=== PATIENT | male | born 1950 | race Caucasian/White ===

== ENCOUNTER 2019-08-05 13:44 | Inpatient (IN) | payer MEDICAID, MEDICARE ==
[~2019-08-05] VITALS: Ht 165 cm; Wt 64.0 kg
[~2019-08-05 13:44] MED LIST: ASPI-875 PO; ASPI-892 PO; ATOR20TA66 PO; LISI10TA2 PO; LSNP10T PO; NCT14P TD
[2019-08-05] MEDS ORDERED: NS IV 1000 ML 1,000 ML IV SCH ×2 (14:09→15:23)
[2019-08-05 14:35] LABS: BASOPHILS % (AUTO) 0 % (0-10); EOSINOPHILS % (AUTO) 0 % (0-10); HEMATOCRIT 41 % (40-54); HEMOGLOBIN 13.9 G/DL (13.3-17.7); LYMPHOCYTES # (AUTO) 1.6 X 10^3 (1.0-4.0); LYMPHOCYTES % (AUTO) 11 % (12-44); MEAN CORPUSCULAR HEMOGLOBIN 29 PG (25-34); MEAN CORPUSCULAR HGB CONC 34 G/DL (32-36); MEAN CORPUSCULAR VOLUME 85 FL (80-99); MEAN PLATELET VOLUME 11.3 FL (7.4-10.4); MONOCYTES # (AUTO) 0.7 X 10^3 (0.0-1.0); MONOCYTES % (AUTO) 5 % (0-12); NEUTROPHILS # (AUTO) 11.5 X 10^3 (1.8-7.8); NEUTROPHILS % (AUTO) 83 % (42-75); PLATELET COUNT 364 10^3/uL (130-400); RED CELL DISTRIBUTION WIDTH 16.1 % (10.0-14.5); WHITE BLOOD COUNT 13.8 10^3/uL (4.3-11.0)
[2019-08-05 14:46] LABS: BILIRUBIN,URINE NEGATIVE (NEGATIVE); CLARITY,URINE CLEAR; COLOR,URINE YELLOW; GLUCOSE, URINE (UA) NEGATIVE (NEGATIVE); KETONES,URINE NEGATIVE (NEGATIVE); LEUKOCYTE ESTERASE ,URINE NEGATIVE (NEGATIVE); NITRITE,URINE NEGATIVE (NEGATIVE); PH,URINE 5.5 (5-9); PROTEIN,URINE NEGATIVE (NEGATIVE)
[2019-08-05 14:47] LABS: INR 1.1 (0.8-1.4); PROTHROMBIN TIME PATIENT 15.1 SEC (12.2-14.7)
[2019-08-05 14:55] LABS: BACTERIA,URINE TRACE /HPF; SQUAMOUS EPITHELIAL CELL,UR RARE /HPF
[2019-08-05 14:56] LABS: ALANINE AMINOTRANSFERASE 87 U/L (0-55); ALKALINE PHOSPHATASE 80 U/L (40-136); AMYLASE 54 U/L (25-125); BILIRUBIN,TOTAL 0.4 MG/DL (0.1-1.0); BUN/CREATININE RATIO 18; CALCIUM 8.8 MG/DL (8.5-10.1); CARBON DIOXIDE 27 MMOL/L (21-32); CHLORIDE 100 MMOL/L (98-107); CREATININE SERUM 1.26 MG/DL (0.60-1.30); GFR ESTIMATED 57; GLUCOSE 112 MG/DL (70-105); LIPASE 29 U/L (8-78); POTASSIUM 4.1 MMOL/L (3.6-5.0); SODIUM 136 MMOL/L (135-145); TOTAL PROTEIN 7.9 GM/DL (6.4-8.2)
--- NOTE | 2019-08-05 14:57 | Diagnostic Imaging Report ---
Indication: Lower respiratory infection PA and lateral chest There is infiltrate present in the left lung base and possibly at the right lung base. There is no effusion or pneumothorax. Heart size and pulmonary vascularity are normal. IMPRESSION: Probable bilateral basilar infiltrate suspicious for pneumonia. Dictated by: Dictated on workstation # [id number]
[2019-08-05 15:06] LABS: AMPHETAMINE SCREEN, URINE NEGATIVE (NEGATIVE); BARBITURATE SCREEN URINE NEGATIVE (NEGATIVE); BENZODIAZEPINES SCREEN URINE NEGATIVE (NEGATIVE); CANNABINOID SCREEN, URINE POSITIVE (NEGATIVE); COCAINE SCREEN URINE NEGATIVE (NEGATIVE); METHADONE STAT NEGATIVE (NEGATIVE); METHAMPHETAMINE SCREEN URINE S NEGATIVE (NEGATIVE); OPIATE SCREEN URINE NEGATIVE (NEGATIVE); OXYCODONE STAT NEGATIVE (NEGATIVE); PROPOXYPHENE STAT NEGATIVE (NEGATIVE); TRICYCLIC ANTIDEPRESSANTS SCRE NEGATIVE (NEGATIVE)
[2019-08-05 15:15] LABS: TSH (THYROID ANALYZER) 1.43 UIU/ML (0.35-4.94)
[2019-08-05] MEDS ORDERED: HOLD METFORMIN - RECEIVED CONTRAST 20 ML VIAL IV SCH (15:45)
[2019-08-05] MEDS ORDERED: IOHEXOL 350 MG/ML 100 ML (OMNIPAQUE 350) VIAL IV ONE (15:45)
[2019-08-05] MEDS ORDERED: NS 100 ML (IVPB) BAG IV ONE (15:45)
--- NOTE | 2019-08-05 15:59 | ED General ---
General Chief Complaint: General Problems/Pain Stated Complaint: NO APPETITE Nursing Triage Note: PT STATES HE ATE AT [employer] ON JUL 17 AND HAS NOT FELT WELL SINCE AND HAS NO APPITITE. WAS SEEN AT [facility] LAST WEEK AND DX WITH A VIRUS. Nursing Sepsis Screen: No Definite Risk History of Present Illness Date Seen by Provider: Aug 05, 2019 Time Seen by Provider: 13:55 Initial Comments 69-year-old male reports loss of appetite over the last 3 weeks. He reports on July 17, 2019 she ate chili at [employer]. He had 2 days of vomiting followed by 2 days of diarrhea. Since then, no further diarrhea or vomiting, but loss of appetite, generalized fatigue and weight loss. No abdominal pain, chest pain, SOA or other complaints. No previous abdominal surgeries. Timing/Duration: Getting Worse, Other (3 weeks) Associated Systoms: No Chest Pain, No Cough, No Diaphoresis, No Fever/Chills, No Headaches; Loss of Appetite, Malaise; No Nausea/Vomiting, No Rash, No Seizure, No Shortness of Air, No Syncope; Weakness; No Other Allergies and Home Medications Allergies Coded Allergies: No Known Drug Allergies (Unverified , 07/23/13) Home Medications Aspirin 81 Mg Tablet.dr, 81 MG PO DAILY, (Reported) Atorvastatin Calcium 20 Mg Tablet, 20 MG PO HS, (Reported) Lisinopril 10 Mg Tablet, 10 MG PO BID, (Reported) Patient Home Medication List Home Medication List Reviewed: Yes Review of Systems Review of Systems Constitutional: see HPI, malaise, weakness, weight loss Respiratory: no symptoms reported, see HPI; No short of breath Cardiovascular: no symptoms reported, see HPI; No chest pain Gastrointestinal: no symptoms reported, see HPI Genitourinary: no symptoms reported, see HPI All Other Systems Reviewed Negative Unless Noted: Yes Past Pfgklth-Oxvlgx-Xbuxcw Hx Past Med/Social Hx: Reviewed Nursing Past Med/Soc Hx Patient Social History Alcohol Use: Past History Recreational Drug Use: No Smoking Status: Current Everyday Smoker Recent Foreign Travel: No Contact w/Someone Who Travel: No Recent Infectious Disease Expo: No Immunizations Up To Date Tetanus Booster (TDap): Unknown Date of Influenza Vaccine: Jul 24, 2013 Past Medical History Surgeries: Yes Orthopedic Respiratory: Yes COPD Cardiac: No Neurological: Yes Stroke Reproductive Disorders: No Sexually Transmitted Disease: No HIV/AIDS: No Genitourinary: No Gastrointestinal: No Musculoskeletal: No Endocrine: No HEENT: No Cancer: No Psychosocial: No Integumentary: No Eczema Blood Disorders: No Adverse Reaction/Blood Tranf: No Family Medical History Stroke 03 MOTHER Physical Exam Vital Signs Vital Signs - First Documented 08/05/19 08/05/19 13:52 14:05 Temp 37.0 Pulse 138 Resp 16 B/P (MAP) 130/85 (100) Pulse Ox 89 O2 Delivery Room Air O2 Flow Rate 2.00 Capillary Refill : Less Than 3 Seconds Height, Weight, BMI Height: 5'10.00" Weight: 155lbs. 1.0oz. [id number]; 23.00 BMI Method:Stated General Appearance: WD/WN, Mild Distress Eyes: Bilateral Eye Normal Inspection, Bilateral Eye PERRL, Bilateral Eye EOMI HEENT: PERRL/EOMI, TMs Normal, Pharynx Normal; No Moist Mucous Membranes; Other (oral mucosa pink and dry) Neck: Full Range of Motion, Normal Inspection, Non Tender, Supple Respiratory: Chest Non Tender, Lungs Clear, Normal Breath Sounds Cardiovascular: Regular Rate, Rhythm, No Edema, No Murmur, Normal Peripheral Pulses Gastrointestinal: Normal Bowel Sounds, Non Tender, Soft; No Distended, No Guarding, No Rebound, No Tenderness Neurologic/Psychiatric: Alert, Oriented x3, No Motor/Sensory Deficits, Normal Mood/Affect Focused Exam Lactate Level 08/05/19 15:14: Lactic Acid Level 1.27 Lactic Acid Level Laboratory Tests Test 08/05/19 15:14 Lactic Acid Level 1.27 MMOL/L (0.50-2.00) Progress/Results/Core Measures Suspected Sepsis Recent Fever Within 48 Hours: No Infection Criteria Present: Suspected New Infection New/Unexplained Altered Menta: No Sepsis Screen: No Definite Risk SIRS Temperature: Pulse: 138 Respiratory Rate: 16 Laboratory Tests 08/05/19 14:05: White Blood Count 13.8H Blood Pressure 130 /85 Mean: 100 08/05/19 15:14: Lactic Acid Level 1.27 Laboratory Tests 08/05/19 14:05: Creatinine 1.26, INR Comment 1.1, Platelet Count 364, Total Bilirubin 0.4 Results/Orders Lab Results Laboratory Tests Test 08/05/19 14:05 08/05/19 14:29 08/05/19 15:14 Range/Units White Blood Count 13.8 H 4.3-11.0 10^3/uL Red Blood Count 4.85 4.35-5.85 10^6/uL Hemoglobin 13.9 13.3-17.7 G/DL Hematocrit 41 40-54 % Mean Corpuscular Volume 85 80-99 FL Mean Corpuscular Hemoglobin 29 25-34 PG Mean Corpuscular Hemoglobin Concent 34 32-36 G/DL Red Cell Distribution Width 16.1 H 10.0-14.5 % Platelet Count 364 130-400 10^3/uL Mean Platelet Volume 11.3 H 7.4-10.4 FL Neutrophils (%) (Auto) 83 H 42-75 % Lymphocytes (%) (Auto) 11 L 12-44 % Monocytes (%) (Auto) 5 0-12 % Eosinophils (%) (Auto) 0 0-10 % Basophils (%) (Auto) 0 0-10 % Neutrophils # (Auto) 11.5 H 1.8-7.8 X 10^3 Lymphocytes # (Auto) 1.6 1.0-4.0 X 10^3 Monocytes # (Auto) 0.7 0.0-1.0 X 10^3 Eosinophils # (Auto) 0.0 0.0-0.3 10^3/uL Basophils # (Auto) 0.0 0.0-0.1 10^3/uL Prothrombin Time 15.1 H 12.2-14.7 SEC INR Comment 1.1 0.8-1.4 Activated Partial Thromboplast Time 30 24-35 SEC Sodium Level 136 135-145 MMOL/L Potassium Level 4.1 3.6-5.0 MMOL/L Chloride Level 100 98-107 MMOL/L Carbon Dioxide Level 27 21-32 MMOL/L Anion Gap 9 5-14 MMOL/L Blood Urea Nitrogen 23 H 7-18 MG/DL Creatinine 1.26 0.60-1.30 MG/DL Estimat Glomerular Filtration Rate 57 BUN/Creatinine Ratio 18 Glucose Level 112 H 70-105 MG/DL Calcium Level 8.8 8.5-10.1 MG/DL Corrected Calcium 9.6 8.5-10.1 MG/DL Total Bilirubin 0.4 0.1-1.0 MG/DL Aspartate Amino Transf (AST/SGOT) 157 H 5-34 U/L Alanine Aminotransferase (ALT/SGPT) 87 H 0-55 U/L Alkaline Phosphatase 80 40-136 U/L Troponin I < 0.028 <0.028 NG/ML B-Type Natriuretic Peptide 24.9 <100.0 PG/ML Total Protein 7.9 6.4-8.2 GM/DL Albumin 3.0 L 3.2-4.5 GM/DL Amylase Level 54 25-125 U/L Lipase 29 8-78 U/L TSH [place] Testing 1.43 0.35-4.94 UIU/ML Serum Alcohol < 10 <10 MG/DL Urine Color YELLOW Urine Clarity CLEAR Urine pH 5.5 5-9 Urine Specific Mccamey 1.025 H 1.016-1.022 Urine Protein NEGATIVE NEGATIVE Urine Glucose (UA) NEGATIVE NEGATIVE Urine Ketones NEGATIVE NEGATIVE Urine Nitrite NEGATIVE NEGATIVE Urine Bilirubin NEGATIVE NEGATIVE Urine Urobilinogen 0.2 < = 1.0 MG/DL Urine Leukocyte Esterase NEGATIVE NEGATIVE Urine RBC (Auto) NEGATIVE NEGATIVE Urine RBC NONE /HPF Urine WBC NONE /HPF Urine Squamous Epithelial Cells RARE /HPF Urine Crystals NONE /LPF Urine Bacteria TRACE /HPF Urine Casts NONE /LPF Urine Mucus NEGATIVE /LPF Urine Culture Indicated NO Urine Opiates Screen NEGATIVE NEGATIVE Urine Oxycodone Screen NEGATIVE NEGATIVE Urine Methadone Screen NEGATIVE NEGATIVE Urine Propoxyphene Screen NEGATIVE NEGATIVE Urine Barbiturates Screen NEGATIVE NEGATIVE Ur Tricyclic Antidepressants Screen NEGATIVE NEGATIVE Urine Phencyclidine Screen NEGATIVE NEGATIVE Urine Amphetamines Screen NEGATIVE NEGATIVE Urine Methamphetamines Screen NEGATIVE NEGATIVE Urine Benzodiazepines Screen NEGATIVE NEGATIVE Urine Cocaine Screen NEGATIVE NEGATIVE Urine Cannabinoids Screen POSITIVE H NEGATIVE Lactic Acid Level 1.27 0.50-2.00 MMOL/L Micro Results Microbiology 08/05/19 Influenza Types A,B Antigen (GE) - Final, Complete My Orders Orders - ELIAS BERNARD Cbc With Automated Diff (08/05/19 13:58) Comprehensive Metabolic Panel (08/05/19 13:58) Ua Culture If Indicated (08/05/19 13:58) Blood Culture (08/05/19 14:08) Influenza A And B Antigens (08/05/19 14:08) Lactic Acid Analyzer (08/05/19 14:08) Alcohol (08/05/19 14:08) Amylase (08/05/19 14:08) BNP (08/05/19 14:08) Drug Screen Stat (Urine) (08/05/19 14:08) Lipase (08/05/19 14:08) Protime With Inr (08/05/19 14:08) Partial Thromboplastin Time (08/05/19 14:08) Thyroid Analyzer (08/05/19 14:08) Troponin I (08/05/19 14:08) Ed Iv/Invasive Line Start (08/05/19 14:09) Ns Iv 1000 Ml (Sodium Chloride 0.9%) (08/05/19 14:09) Ekg Tracing (08/05/19 14:09) Continuous Ekg Monitoring (08/05/19 14:09) Chest Pa/Lat (2 View) (08/05/19 14:37) Ed Iv/Invasive Line Start (08/05/19 15:23) Ns Iv 1000 Ml (Sodium Chloride 0.9%) (08/05/19 15:23) Ct Abd/Pelv W (Appendicitis) (08/05/19 15:23) Iohexol Injection (Omnipaque 350 Mg/Ml 1 (08/05/19 15:45) Received Contrast (Hold Metformin- Contr (08/05/19 15:45) Ns (Ivpb) (Sodium Chloride 0.9% Ivpb Bag (08/05/19 15:45) Azithromycin Injection (Zithromax Inject (08/05/19 16:45) Ceftriaxone For Iv Use (Rocephin For I (08/05/19 16:45) Medications Given in ED Current Medications Medications Dose Ordered Sig/Deon Route Start Time Stop Time Status Last Admin Dose Admin Iohexol 100 ml ONCE ONCE IV 08/05/19 15:45 08/05/19 15:47 DC 08/05/19 16:00 100 ML Sodium Chloride 100 ml ONCE ONCE IV 08/05/19 15:45 08/05/19 15:48 DC 08/05/19 16:00 100 ML Vital Signs/I&O 08/05/19 08/05/19 13:52 14:05 Temp 37.0 Pulse 138 Resp 16 B/P (MAP) 130/85 (100) Pulse Ox 89 92 O2 Delivery Room Air Nasal Cannula O2 Flow Rate 2.00 Capillary Refill : Less Than 3 Seconds Blood Pressure Mean: 100 Progress Note : Time: 13:55 Progress Note Patient seen and evaluated, initial SaO2 88-90% on room air, O2 per nasal cannula increased to 91%. 1445 no new complaints. Labs reviewed. 1530 SaO2 98%, decreased O2 to 1 L. Heart rate 80-90. Able to maintain SaO2 > 96%. will obtain CT abdomen and pelvis. Reports being thirsty, will keep NPO until after CT. [address] and labs with Dr. Coronado, agreed with plan to admit, Dr. Robledo agreeable to consult. [address] George, will consult tomorrow. Taking ice chips, no n/v or complaints. SaO2 remaining > 92% with 1 L per NC. 1745 Patient talking to spouse, no SOA. No complaints, awaiting transfer to floor. ECG Initial ECG Impression Date: Aug 05, 2019 Initial ECG Impression Time: 14:15 Initial ECG Rhythm: S.Tach Initial ECG Intervals CO 144, QRSD 70, QT 296, QTC 446. Troy P -30, QRS, T 50. Initial ECG Impression: Normal Initial ECG Comparisson: No Previous ECG Available Diagnostic Imaging Diagonstic Imaging: CT Comments [facility], [place] NAME: DARA HAGER [employer] REC#: [id number] PT STATUS: REG ER : 1950 PHYSICIAN: ELIAS BERNARD ADMIT DATE: 08/05/19/ER Draft Date of Exam:08/05/19 CT ABD/PELV W (APPENDICITIS) CT ABD/PELV W (APPENDICITIS) TECHNIQUE: Multiple contiguous axial images were obtained through the abdomen and pelvis after administration of intravenous contrast. All CT scans use one or more of the following dose optimizing techniques: automated exposure control, MA and/or KvP adjustment based on a patient size and exam type, or iterative reconstruction. INDICATION: No appetite for one month. Pneumonia seen on prior radiograph. COMPARISON: Two-view chest of 08/05/2019. FINDINGS: Lower chest: Multifocal consolidations and centrilobular micronodules within the lung bases. No cavitary nodules. No pleural effusion. Peritoneum: No free intraperitoneal air or fluid. Liver and biliary system: The liver is normal. The gallbladder is normal. No biliary duct dilation. Spleen and Pancreas: Spleen is normal. The pancreas enhances normally without mass lesion or peripancreatic inflammatory changes. Adrenals: Normal. tract: The kidneys enhance normally without suspicious mass or obstruction. Urinary bladder is partially distended. Mild trabeculated wall thickening. Prostate is mildly enlarged. GI tract: Moderate size hiatal hernia is present. Mild circumferential wall thickening of the distal esophagus is noted. No bowel obstruction. No pericolonic inflammatory changes. No features of appendicitis. Vasculature and Lymph nodes: Normal caliber aorta has moderate atherosclerotic plaquing present. No abdominal or pelvic lymphadenopathy. Musculoskeletal: There is motion artifact at the level of the proximal femurs resulting in artificial appearance of fracture. No concerning focal osseous lesion allowing for the motion. IMPRESSION: 1. Bilateral pulmonary consolidations and centrilobular nodules are most compatible with multifocal pneumonia and/or aspiration. 2. Moderate size hiatal hernia with circumferential wall thickening of the distal esophagus. This raises the possibility of esophagitis, but underlying neoplasm could also give this appearance. Consider endoscopy for further assessment as patient condition permits. 3. No bowel obstruction, colitis or diverticulitis. 4. Mild trabeculated wall thickening of the urinary bladder may be due to combination of incomplete distention and partial bladder outlet obstruction from prostatomegaly. If patient has hematuria, urology consultation would be advised to assess for bladder neoplasm. Dictated on workstation # [id number] Dict: 08/05/19 1607 Trans: 08/05/19 1617 [id number] Interpreted by: SOCORRO NUNO MD Electronically signed by: Reviewed: Reviewed by Me Departure Impression Primary Impression: Pneumonia Qualified Codes: J18.1 - Lobar pneumonia, unspecified organism Additional Impression: Decreased appetite Disposition: ADMITTED INPATIENT Condition: Stable Admissions Decision to Admit Reason: Admit from ER (General) Decision to Admit/Date: Aug 05, 2019 Time/Decision to Admit Time: 16:20 Departure-Patient Inst. Referrals: TESSIE GARRETT MD (PCP) Primary Care Physician [facility] (Family) Primary Care Physician Copy Copies To 1: TESSIE GARRETT MD, AMY ARNP Aug 05, 2019 15:59
--- NOTE | 2019-08-05 16:17 | Diagnostic Imaging Report ---
CT ABD/PELV W (APPENDICITIS) TECHNIQUE: Multiple contiguous axial images were obtained through the abdomen and pelvis after administration of intravenous contrast. All CT scans use one or more of the following dose optimizing techniques: automated exposure control, MA and/or KvP adjustment based on a patient size and exam type, or iterative reconstruction. INDICATION: No appetite for one month. Pneumonia seen on prior radiograph. COMPARISON: Two-view chest of 08/05/2019. FINDINGS: Lower chest: Multifocal consolidations and centrilobular micronodules within the lung bases. No cavitary nodules. No pleural effusion. Peritoneum: No free intraperitoneal air or fluid. Liver and biliary system: The liver is normal. The gallbladder is normal. No biliary duct dilation. Spleen and Pancreas: Spleen is normal. The pancreas enhances normally without mass lesion or peripancreatic inflammatory changes. Adrenals: Normal. tract: The kidneys enhance normally without suspicious mass or obstruction. Urinary bladder is partially distended. Mild trabeculated wall thickening. Prostate is mildly enlarged. GI tract: Moderate size hiatal hernia is present. Mild circumferential wall thickening of the distal esophagus is noted. No bowel obstruction. No pericolonic inflammatory changes. No features of appendicitis. Vasculature and Lymph nodes: Normal caliber aorta has moderate atherosclerotic plaquing present. No abdominal or pelvic lymphadenopathy. Musculoskeletal: There is motion artifact at the level of the proximal femurs resulting in artificial appearance of fracture. No concerning focal osseous lesion allowing for the motion. IMPRESSION: 1. Bilateral pulmonary consolidations and centrilobular nodules are most compatible with multifocal pneumonia and/or aspiration. 2. Moderate size hiatal hernia with circumferential wall thickening of the distal esophagus. This raises the possibility of esophagitis, but underlying neoplasm could also give this appearance. Consider endoscopy for further assessment as patient condition permits. 3. No bowel obstruction, colitis or diverticulitis. 4. Mild trabeculated wall thickening of the urinary bladder may be due to combination of incomplete distention and partial bladder outlet obstruction from prostatomegaly. If patient has hematuria, urology consultation would be advised to assess for bladder neoplasm. Dictated by: Dictated on workstation # [id number]
[2019-08-05] MEDS ORDERED: cefTRIAXone FOR IV USE 1,000 MG in WATER (STERILE) FOR INJECTION 10 ML IV ONE (16:45)
[2019-08-05] MEDS ORDERED: AZITHROMYCIN INJECTION 500 MG in NS (IVPB) 250 ML IV ONE (16:45)
--- NOTE | 2019-08-05 18:10 | NUR ---
ALL VITALS MISTAKENLY DELETED UPON ADMIT BY [facility]
--- NOTE | 2019-08-05 18:24 | NUR ---
f pt name] admitted to room 427-1, with an admitting diagnosis of pneumonia, on 08/05/19 from [place] via wheelchair, accompanied by .DARA HAGER introduced to surroundings, call light, bed controls, phone, TV, temperature control, lights, meal times, smoking policy, visitor policy, side rail policy, bathrooms and showers. Patient Rights given to patient in the handbook.DARA HAGER verbalizes understanding that [facility] is not responsible for the loss or damage to any personal effects or valuables that are kept in the patients posession during their hospitalization. The following Patient Care Plans were discussed with the pt: Discharge Planning. DARA HAGER verbalizes understanding of Interdisciplinary Patient Education. Patient and/or family were informed about the Rapid Response Team and its purpose.
[2019-08-05 18:25] VITALS: BP 146/94
[2019-08-05] MEDS ORDERED: ACETAMINOPHEN 325 MG TABLET PO PRN (18:30)
[2019-08-05] MEDS ORDERED: CATHETER FLUSH 10 ML SYR IV PRN (18:30)
--- NOTE | 2019-08-05 18:34 | CONSULTATION REPORT ---
DATE OF SERVICE: 08/05/2019 ATTENDING EMS DRIVER: Davian Shannon MD HISTORY OF PRESENT ILLNESS: The patient is a 69-year-old male who presented to the Emergency Department with loss of appetite as well as dysphagia. He reports that approximately 2 weeks ago, he was eating chili and then developed two days of vomiting as well as diarrhea. Since that time, he states that he has had some loss of appetite and some mild weight loss. A CT scan was performed, which did show bilateral basilar pneumonia; however, there was a thickened area of the distal portion of the esophagus, which may indicate a hiatal hernia versus esophagitis He does not report any major issues with gastroesophageal reflux disease or peptic ulcer disease. He also does not report any hematemesis, no coffee ground emesis. He does not report any dysphagia as well as regurgitation. Again, more of his symptoms are related to decreased appetite as well as mild nausea. PAST MEDICAL HISTORY: COPD, eczema, previous history of stroke, hypertension, and hypercholesterolemia. PAST SURGICAL HISTORY: Orthopedic procedure. ALLERGIES: No known drug allergies. MEDICATIONS: Aspirin 81 mg daily, atorvastatin 20 mg daily and Lisinopril 10 mg b.i.d. SOCIAL HISTORY: Positive smoke 40 pack years. Negative alcohol. FAMILY HISTORY: Mother stroke. VITAL SIGNS: Temperature 37.0, blood pressure 130/85, pulse 138, respirations 16, pulse ox 89% on room air. REVIEW OF SYSTEMS: A well-nourished male, currently in no acute distress. He is not experiencing any shortness of breath or difficulty breathing; however, does have mild nonproductive cough. No hemoptysis. He reports an episode of nausea and vomiting for approximately two days after eating chili and after that time, he states that he has not had much of an appetite. He does not report any classic symptoms of gastroesophageal reflux disease. He also does not report any hematemesis, no coffee ground emesis. He does not report any diarrhea nor constipation as well as no red blood per rectum nor any dark tarry stools. No fever, chills; however, has had some weight loss in the past few months. PHYSICAL EXAMINATION: CHEST: Distant breath sounds bilaterally with scattered expiratory wheezes bilaterally. HEART: Regular, no murmurs. EXTREMITIES: No lower extremity edema, negative Homans sign. HEENT: No scleral icterus. NECK: No cervical lymphadenopathy. ABDOMEN: Soft, nondistended. There is mild discomfort in the epigastric region upon deep palpation. No peritoneal signs. SKIN: Warm, dry. LABORATORY DATA: WBC 13.8, hemoglobin 13.9, hematocrit 41, platelets 364. BUN 23, creatinine 1.26. Total bilirubin 0.4, AST 157, ALT 87. ASSESSMENT AND PLAN: A 69-year-old male with bibasilar pneumonia, anorexia, mild weight loss and CT scan findings of hiatal hernia versus distal esophagitis We will also investigate when his last colonoscopy was and if it has been greater than 10 years ago then we will proceed with an EGD and colonoscopy as well as biopsies as appropriate. There is also the possibility of a gallbladder etiology causing his anorexia and we will also proceed with a gallbladder ultrasound and possible HIDA scan to look for a biliary dyskinesia. Job ID: [id number] DocumentID: [id number] Dictated Date: 08/05/2019 17:51:44 Cosmetology Professor Date: 08/05/2019 18:33:26 Dictated By: MAYKEL KING MD
[2019-08-05] MEDS: NS IV 1000 ML 1,000 ML IV SCH (18:42)
[2019-08-05 19:08] VITALS: BP 146/94
[2019-08-05 23:15] VITALS: BP 130/85
[2019-08-05] MEDS ORDERED: RT-ALBUTEROL SULF 2.5 MG/3 ML PRE-MIX VIAL INH PRN (23:30)
[2019-08-06] VITALS (8 sets, daily range): BP systolic 129–153; BP diastolic 76–88
[2019-08-06] MEDS: NS IV 1000 ML 1,000 ML IV SCH ×4 (00:16→19:41)
[2019-08-06 06:05] LABS: BASOPHILS % (AUTO) 0 % (0-10); EOSINOPHILS % (AUTO) 0 % (0-10); HEMATOCRIT 33 % (40-54); LYMPHOCYTES # (AUTO) 0.9 X 10^3 (1.0-4.0); LYMPHOCYTES % (AUTO) 11 % (12-44); MEAN CORPUSCULAR HEMOGLOBIN 29 PG (25-34); MEAN CORPUSCULAR HGB CONC 33 G/DL (32-36); MEAN CORPUSCULAR VOLUME 86 FL (80-99); MEAN PLATELET VOLUME 10.6 FL (7.4-10.4); MONOCYTES # (AUTO) 0.5 X 10^3 (0.0-1.0); MONOCYTES % (AUTO) 6 % (0-12); NEUTROPHILS # (AUTO) 7.1 X 10^3 (1.8-7.8); NEUTROPHILS % (AUTO) 83 % (42-75); PLATELET COUNT 285 10^3/uL (130-400); RED CELL DISTRIBUTION WIDTH 15.6 % (10.0-14.5); WHITE BLOOD COUNT 8.6 10^3/uL (4.3-11.0)
[2019-08-06 06:31] LABS: ALANINE AMINOTRANSFERASE 62 U/L (0-55); ALBUMIN 2.2 GM/DL (3.2-4.5); ALKALINE PHOSPHATASE 59 U/L (40-136); BILIRUBIN,TOTAL 0.4 MG/DL (0.1-1.0); BUN/CREATININE RATIO 17; CALCIUM 7.5 MG/DL (8.5-10.1); CARBON DIOXIDE 23 MMOL/L (21-32); CHLORIDE 105 MMOL/L (98-107); CREATININE SERUM 0.86 MG/DL (0.60-1.30); GFR ESTIMATED > 60; GLUCOSE 88 MG/DL (70-105); POTASSIUM 3.9 MMOL/L (3.6-5.0); SODIUM 135 MMOL/L (135-145); TOTAL PROTEIN 5.8 GM/DL (6.4-8.2)
--- NOTE | 2019-08-06 06:35 | NUR ---
DR. MALLORY NOTIFIED OF CONSULT.
--- NOTE | 2019-08-06 06:52 | Pulmonary Consultation ---
History of Present Illness History of Present Illness Date Seen by Provider: Aug 06, 2019 Time Seen by Provider: 06:47 Date of Admission History of Present Illness 69yo presented to ED after worsening dysphagia, weakness and wt loss. No abdominal pain, SOB, or chest pain. CT of chest shows bilateral infiltrates and questionable esophageal thickening. Allergies and Home Medications Allergies Coded Allergies: No Known Drug Allergies (Unverified , 07/23/13) Home Medications Aspirin 81 Mg Tablet.dr, 81 MG PO DAILY, (Reported) Atorvastatin Calcium 20 Mg Tablet, 20 MG PO HS, (Reported) Lisinopril 10 Mg Tablet, 10 MG PO BID, (Reported) Past Wfchbnq-Obedgk-Dgsukt Hx Past Med/Social Hx: Reviewed Nursing Past Med/Soc Hx Patient Social History Alcohol Use: Past History Recreational Drug Use: No Smoking Status: Current Everyday Smoker Recent Foreign Travel: No Contact w/Someone Who Travel: No Recent Infectious Disease Expo: No Immunizations Up To Date Tetanus Booster (TDap): Unknown Date of Pneumonia Vaccine: Aug 14, 2017 Date of Influenza Vaccine: Jul 24, 2013 Past Medical History Surgeries: Yes Orthopedic Respiratory: Yes COPD Cardiac: No Neurological: Yes Stroke Reproductive Disorders: No Sexually Transmitted Disease: No HIV/AIDS: No Genitourinary: No Gastrointestinal: No Musculoskeletal: No Endocrine: No HEENT: No Cancer: No Psychosocial: No Integumentary: No Eczema Blood Disorders: No Adverse Reaction/Blood Tranf: No Family Medical History Stroke 03 MOTHER Sepsis Event Evaluation Height, Weight, BMI Height: 5'10.00" Weight: 155lbs. 1.0oz. 70.727307yx; 23.50 BMI Method:Stated Exam Exam Vital Signs Date Time Temp Pulse Resp B/P (MAP) Pulse Ox O2 Delivery O2 Flow Rate FiO2 08/06/19 04:00 36.5 76 20 153/88 (109) 95 Nasal Cannula 2.50 08/06/19 00:00 36.2 85 21 132/79 (96) 92 Nasal Cannula 2.50 08/05/19 23:15 37.0 138 89 08/05/19 20:00 Nasal Cannula 2.00 08/05/19 19:08 37.4 93 26 146/94 (111) 92 Nasal Cannula 2.50 2.50 08/05/19 18:40 92 Nasal Cannula 2.00 08/05/19 18:25 37.4 93 26 146/94 92 Nasal Cannula 2.50 08/05/19 18:10 37.0 93 16 135/79 (100) 96 Nasal Cannula 2.00 08/05/19 15:35 37.0 138 16 130/85 92 Nasal Cannula 2.00 08/05/19 14:05 92 Nasal Cannula 2.00 08/05/19 13:52 37.0 138 16 130/85 (100) 89 Room Air I & O 08/06/19 07:00 Intake Total 4560 ml Output Total 1050 ml Balance 3510 ml Height & Weight Height: 5'10.00" Weight: 155lbs. 1.0oz. 70.515614nk; 23.50 BMI Method:Stated General Appearance: WD/WN, Mild Distress HEENT: PERRL/EOMI, TMs Normal, Pharynx Normal; No Moist Mucous Membranes; Other (oral mucosa pink and dry) Neck: Full Range of Motion, Normal Inspection, Non Tender, Supple Respiratory: Chest Non Tender, Lungs Clear, Normal Breath Sounds Cardiovascular: Regular Rate, Rhythm, No Edema, No Murmur, Normal Peripheral Pulses Capillary Refill: Less Than 3 Seconds Neurologic/Psychiatric: Alert, Oriented x3, No Motor/Sensory Deficits, Normal Mood/Affect Results Lab Laboratory Tests 08/05/19 14:05 08/06/19 05:56 Assessment/Plan Assessment/Plan bilateral pulmonary infiltrates per abdominal CT -Check dedicated chest CT -Check PCT, urine strep, legionella ag -Influenza is negative -Continue rocephin and azithromycin for now dysphagia -Consult speech therapy -Surgery is consulted for EGD Hesham use -Education LUIS MALLORY DO Aug 06, 2019 06:52
[2019-08-06] MEDS: PANTOPRAZOLE 40 MG (PROTONIX) VIAL IV SCH (08:22)
--- NOTE | 2019-08-06 08:37 | Diagnostic Imaging Report ---
PROCEDURE: US Gallbladder. TECHNIQUE: Multiple real-time grayscale images were obtained over the right upper quadrant in various projections. INDICATION: Anorexia, nausea and vomiting. COMPARISON: CT abdomen and pelvis performed prior day. FINDINGS: The liver is normal in size and echogenicity. There is no focal hepatic mass. The main portal vein is patent with antegrade flow. The gallbladder is distended without gallstones, wall thickening, or pericholecystic fluid. The common bile duct measures up to 0.3 cm in diameter. No intrahepatic biliary dilation. The visualized portions of the pancreas are normal. Portions of the head and tail are obscured by overlying bowel gas. The right kidney is normal in size. No hydronephrosis, shadowing calculi, or suspicious mass lesion. Simple parapelvic cyst measures 1.3 x 1.3 cm. IMPRESSION: 1. Normal gallbladder. 2. No biliary obstruction. Dictated by: Dictated on workstation # [id number]
--- NOTE | 2019-08-06 10:32 | History & Physical ---
HPI History of Present Illness: 69 yo male came to hospital due to report of not being able to eat for about a month. He states that he was really sick with vomiting and diarrhea for a few days about a month ago. It sounds like he got some nausea medicine from outpatient and got a little better, but then continued to have no appetite and didn't feel like eating. He does believe he has been losing weight. He denies current diarrhea. He denies difficulty swallowing. He denies fever. He has "a bit" of coughing and admits some shortness of breath. He does not use supplemental oxygen at home. Source: patient Date seen by provider: Aug 06, 2019 Time Seen by Provider: 10:30 Attending Physician Bernice Coronado MD PCP Davian Shannon MD Consult Date of Admission Aug 05, 2019 at 16:30 Home Medications Home Medications Reviewed patient Home Medication Reconciliation performed by pharmacy medication reconciliations imaging technician and/or nursing. Patients Allergies have been reviewed. Allergies Coded Allergies: No Known Drug Allergies (Unverified , 07/23/13) [id number] Patient Social History Alcohol Use: Past History Recreational Drug Use: No Smoking Status: Current Everyday Smoker Recent Foreign Travel: No Contact w/other who traveled: No Recent Infectious Disease Expo: No Immunizations Up To Date Tetanus Booster (TDap): Unknown Date of Pneumonia Vaccine: Aug 14, 2017 Date of Influenza Vaccine: Jul 24, 2013 Past Medical History PMHx: HTN HLD CVA SurgHx: Unknown Family Medical History Family History: Stroke 03 MOTHER Review of Systems ([facility]) Constitutional: No fever Respiratory: cough, short of breath Cardiovascular: No chest pain Gastrointestinal: see HPI; No abdominal pain, No diarrhea Genitourinary: No dysuria Skin: No rash Reviewed Test Results Reviewed Test Results Lab Laboratory Tests Test 08/05/19 14:05 08/05/19 14:29 08/05/19 15:14 08/06/19 05:56 Range/Units White Blood Count 13.8 H 8.6 4.3-11.0 10^3/uL Red Blood Count 4.85 3.85 L 4.35-5.85 10^6/uL Hemoglobin 13.9 11.0 #L 13.3-17.7 G/DL Hematocrit 41 33 L 40-54 % Mean Corpuscular Volume 85 86 80-99 FL Mean Corpuscular Hemoglobin 29 29 25-34 PG Mean Corpuscular Hemoglobin Concent 34 33 32-36 G/DL Red Cell Distribution Width 16.1 H 15.6 H 10.0-14.5 % Platelet Count 364 285 130-400 10^3/uL Mean Platelet Volume 11.3 H 10.6 H 7.4-10.4 FL Neutrophils (%) (Auto) 83 H 83 H 42-75 % Lymphocytes (%) (Auto) 11 L 11 L 12-44 % Monocytes (%) (Auto) 5 6 0-12 % Eosinophils (%) (Auto) 0 0 0-10 % Basophils (%) (Auto) 0 0 0-10 % Neutrophils # (Auto) 11.5 H 7.1 1.8-7.8 X 10^3 Lymphocytes # (Auto) 1.6 0.9 L 1.0-4.0 X 10^3 Monocytes # (Auto) 0.7 0.5 0.0-1.0 X 10^3 Eosinophils # (Auto) 0.0 0.0 0.0-0.3 10^3/uL Basophils # (Auto) 0.0 0.0 0.0-0.1 10^3/uL Prothrombin Time 15.1 H 12.2-14.7 SEC INR Comment 1.1 0.8-1.4 Activated Partial Thromboplast Time 30 24-35 SEC Sodium Level 136 135 135-145 MMOL/L Potassium Level 4.1 3.9 3.6-5.0 MMOL/L Chloride Level 100 105 98-107 MMOL/L Carbon Dioxide Level 27 23 21-32 MMOL/L Anion Gap 9 7 5-14 MMOL/L Blood Urea Nitrogen 23 H 15 7-18 MG/DL Creatinine 1.26 0.86 0.60-1.30 MG/DL Estimat Glomerular Filtration Rate 57 > 60 BUN/Creatinine Ratio 18 17 Glucose Level 112 H 88 70-105 MG/DL Calcium Level 8.8 7.5 L 8.5-10.1 MG/DL Corrected Calcium 9.6 8.9 8.5-10.1 MG/DL Total Bilirubin 0.4 0.4 0.1-1.0 MG/DL Aspartate Amino Transf (AST/SGOT) 157 H 86 H 5-34 U/L Alanine Aminotransferase (ALT/SGPT) 87 H 62 H 0-55 U/L Alkaline Phosphatase 80 59 40-136 U/L Troponin I < 0.028 <0.028 NG/ML B-Type Natriuretic Peptide 24.9 <100.0 PG/ML Total Protein 7.9 5.8 L 6.4-8.2 GM/DL Albumin 3.0 L 2.2 L 3.2-4.5 GM/DL Amylase Level 54 25-125 U/L Lipase 29 8-78 U/L TSH Angelina Testing 1.43 0.35-4.94 UIU/ML Serum Alcohol < 10 <10 MG/DL Urine Color YELLOW Urine Clarity CLEAR Urine pH 5.5 5-9 Urine Specific [place] 1.025 H 1.016-1.022 Urine Protein NEGATIVE NEGATIVE Urine Glucose (UA) NEGATIVE NEGATIVE Urine Ketones NEGATIVE NEGATIVE Urine Nitrite NEGATIVE NEGATIVE Urine Bilirubin NEGATIVE NEGATIVE Urine Urobilinogen 0.2 < = 1.0 MG/DL Urine Leukocyte Esterase NEGATIVE NEGATIVE Urine RBC (Auto) NEGATIVE NEGATIVE Urine RBC NONE /HPF Urine WBC NONE /HPF Urine Squamous Epithelial Cells RARE /HPF Urine Crystals NONE /LPF Urine Bacteria TRACE /HPF Urine Casts NONE /LPF Urine Mucus NEGATIVE /LPF Urine Culture Indicated NO Urine Opiates Screen NEGATIVE NEGATIVE Urine Oxycodone Screen NEGATIVE NEGATIVE Urine Methadone Screen NEGATIVE NEGATIVE Urine Propoxyphene Screen NEGATIVE NEGATIVE Urine Barbiturates Screen NEGATIVE NEGATIVE Ur Tricyclic Antidepressants Screen NEGATIVE NEGATIVE Urine Phencyclidine Screen NEGATIVE NEGATIVE Urine Amphetamines Screen NEGATIVE NEGATIVE Urine Methamphetamines Screen NEGATIVE NEGATIVE Urine Benzodiazepines Screen NEGATIVE NEGATIVE Urine Cocaine Screen NEGATIVE NEGATIVE Urine Cannabinoids Screen POSITIVE H NEGATIVE Lactic Acid Level 1.27 0.50-2.00 MMOL/L Procalcitonin 0.30 H <0.10 NG/ML Radiology CT abdomen pelvis 3/4: IMPRESSION: 1. Bilateral pulmonary consolidations and centrilobular nodules are most compatible with multifocal pneumonia and/or aspiration. 2. Moderate size hiatal hernia with circumferential wall thickening of the distal esophagus. This raises the possibility of esophagitis, but underlying neoplasm could also give this appearance. Consider endoscopy for further assessment as patient condition permits. 3. No bowel obstruction, colitis or diverticulitis. 4. Mild trabeculated wall thickening of the urinary bladder may be due to combination of incomplete distention and partial bladder outlet obstruction from prostatomegaly. If patient has hematuria, urology consultation would be advised to assess for bladder neoplasm. CXR 3/4: IMPRESSION: Probable bilateral basilar infiltrate suspicious for pneu monia. Physical Exam-([facility]) Physical Exam Vital Signs VS - Last 72 Hours, by Label 08/05/19 08/05/19 08/05/19 08/05/19 13:52 14:05 15:35 18:10 Temp 37.0 37.0 37.0 Pulse 138 138 93 Resp 16 16 16 B/P (MAP) 130/85 (100) 130/85 135/79 (100) Pulse Ox 89 92 92 96 O2 Delivery Room Air Nasal Cannula Nasal Cannula Nasal Cannula O2 Flow Rate 2.00 2.00 2.00 08/05/19 08/05/19 08/05/19 08/05/19 18:25 18:40 19:08 20:00 Temp 37.4 37.4 Pulse 93 93 Resp 26 26 B/P (MAP) 146/94 146/94 (111) Pulse Ox 92 92 92 O2 Delivery Nasal Cannula Nasal Cannula Nasal Cannula Nasal Cannula O2 Flow Rate 2.50 2.00 2.50 2.00 2.50 08/05/19 08/06/19 08/06/19 08/06/19 23:15 00:00 04:00 08:00 Temp 37.0 36.2 36.5 Pulse 138 85 76 Resp 21 20 B/P (MAP) 132/79 (96) 153/88 (109) Pulse Ox 89 92 95 94 O2 Delivery Nasal Cannula Nasal Cannula Nasal Cannula O2 Flow Rate 2.50 2.50 2.00 08/06/19 08/06/19 08/06/19 08/06/19 08:00 12:00 13:08 13:24 Temp 37.7 37.1 37.1 Pulse 88 94 94 Resp 20 16 B/P (MAP) 144/81 (102) 147/88 (107) Pulse Ox 94 93 93 93 O2 Delivery Nasal Cannula Nasal Cannula Nasal Cannula O2 Flow Rate 2.50 2.50 2.50 08/06/19 13:59 Pulse Ox 92 O2 Delivery Nasal Cannula O2 Flow Rate 2.50 Capillary Refill : Less Than 3 Seconds General Appearance: no apparent distress HEENT: PERRL/EOMI Respiratory: accessory muscle use, rhonchi Cardiovascular: regular rate, rhythm, no murmur Gastrointestinal: normal bowel sounds, non tender, soft Extremities: no pedal edema Neurologic/Psychiatric: abnormal assembler equipment II-XII (decreased hearing bilaterally), motor weakness (right elbow flexion 4/5, otherwise 5/5 upper and lower extremities), other (oriented to self and location and year) Skin: normal color, warm/dry Assessment/Plan Assessment/Plan Admission Status: Inpatient Order (span 2 midnights) Reason for Inpatient Admission: Pneumonia with underlying comorbidities (1) Pneumonia Status: Acute Assessment & Plan: Started on ceftriaxone and azithromycin, Dr. George consulted, appreciate recommendations. Qualifiers: Qualified Codes: J18.1 - Lobar pneumonia, unspecified organism (2) Esophageal abnormality Assessment & Plan: Surgery consulted, will likely have EGD. (3) Bladder wall thickening Assessment & Plan: No hematuria (4) Decreased appetite Status: Acute Assessment & Plan: CT abdomen concerning for possible esophageal pathology, Surgery consulted. GB US pending. (5) History of CVA (cerebrovascular accident) Assessment & Plan: Not taking home medications, will need to resume statin and antiplatelet. (6) DVT prophylaxis Status: Acute Assessment & Plan: Enoxaparin Clinical Quality Measures DVT/VTE Risk/Contraindication: Risk Factor Score Per Nursin RFS Level Per Nursing on Admit: 4+=Very High BERNICE CORONADO MD Aug 06, 2019 10:32
--- NOTE | 2019-08-06 11:26 | ST Dysphagia Evaluation ---
Speech Evaluation-General Medical Diagnosis Pneumonia Onset Date: Aug 06, 2019 Therapy Diagnosis Therapy Diagnosis: Oropharyngeal Dysphagia Precautions Precautions: Aspiration Referral Referring Physician: Dr. George Reason for Referral: Evaluation/Treatment Medical History Pertinent Medical History: COPD Reviewed History: Yes Social History Current Living Status: Spouse Speech PLF/Current-Dysphagia Prior Level of Function Patient lived at home with his . He states prior to getting ill after eating chili from [employer] on he was able to eat what ever he wanted. Cognitive Status Patient Orientation: Person, Place, Time, Situation Oral Motor Skills Dentition: Natural, Tumbled, Stained Current Food Consistancy: Regular, Thin Liquids Ability to Follow Directions: Excellent Oral Expression Ability: No Impairment Voice Voice Phonatory-Based Quality: Normal Voice Pitch: Normal Voice Loudness: Mildly Soft/Quiet Face Facial Symmetry: Symmetrical Oral-Facial Assessment Oral-Facial Dentition: Normal Labial Seal Description: Normal Lingual Protrusion: Normal Lingual ROM: Normal Lingual Strength: Normal Pharynx Velopharyngeal Move.: Normal Volitional Dry Swallow: Yes Voluntary Cough: Yes Can Clear Throat Volitionally: Yes Dysphagia Evaluation Consistencies Presented: Regular, Thin Liquid, Mechanical Soft, Pureed Oral phase is within normal limits of function. Pharyngeal phase is within normal limits of function. Dietary Recommendations: Regular Liquid Recommendations: Thin Swallowing Precautions: Alternate Liquids/Solids, Double Swallow, Decreased B olus 1/2 Tsp, Decreased Rate of Oral Intake, Liquids from Straw, Small Bites and Sips, Sitting Upright 90 Degrees, Sitting 90 Degrees 30 Post Intake Dysphagia Evaluation Summary Patient was admitted to the hospital via ED due to decreased appetite. Patient became ill after eating chili from [employer] on the Jul. He had a few days of vomiting and diarrhea. He reports not having an appetite since that time. He states he doesn't feel he has difficulty with swallowing. Patient completed the Bedside Dysphagia Evaluation with thin presented at 1/2 tsp x2, small sips via straw x2 without difficulty. Puree, mechanical soft and regular consistencies were presented at 1/2 tsp size without difficulty. Normal mastication and swallow onset are within normal range for all consistencies. Patient does not require further ST services at this time. Barriers to Learning None identified Speech-Plan Patient/Family Goals Patient/Family Goals: Patient plans on returning to his home where he lives with his . Treatment Plan Speech Therapy Treatment Plan: Discontinue ST Frequency: 1 time per week Estimated Hrs Per Day: .25 hour per day Rehab Potential: Good Barriers to Learning: None identified Pt/Family Agrees to Plan: Yes Safety Risks/Education Teaching Recipient: Patient Teaching Methods: Discussion Response to Teaching: Verbalize Understanding Education Topics Provided: Safety of oral intake and diet level Time Speech Therapy Time In: 10:10 Speech Therapy Time Out: 10:25 Total Billed Time: 15 Billed Treatment Time SI[place] White [place] Aug 06, 2019 11:26
[2019-08-06] MEDS ORDERED: ASPI-983 PO (11:44)
[2019-08-06] MEDS ORDERED: METO5TAB2 PO (11:44)
--- NOTE | 2019-08-06 11:44 | NUR ---
SPOKE WITH THE PT, WENT THRU THE EXT MED HISTORY AND CALLED [facility] TO COMPLETE THE MED REC. PT DENIES TAKING ANY MAINTENANCE PRESCRIPTIONS, BUT HE WAS RECENTLY PRESCRIBED REGLAN 5MG AND HAS BEEN TAKING PRN PT MENTIONED HE WAS TAKING MEDICATIONS FOR BLOOD PRESSURE AND CHOLESTEROL BUT HE HASNT TAKEN THEM RECENTLY. WHEN I CALLED [facility] I WAS TOLD HE WAS ON PRAVASTATIN AND LISINOPRIL BUT NEITHER OF THOSE HAS BEEN FILLED SINCE AUGUST 2018. OTC MEDS: ASPIRIN 81MG
--- NOTE | 2019-08-06 11:48 | NUR ---
"RD ASSESSMENT PMHx: COPD; stroke; HTN; hypercholesterolemia PT INTERACTION: Pt was awake and pleasant during consult for MST score. Pt states current appetite is poor and has been for the past month. Note PO intake of 10% at breakfast 3/5, per chart review. Pt states following a regular diet at home and has no issues with chewing/swallowing food. Pt states some episodes of nausea/vomiting early into his poor appetite, but states nothing recent. Pt states no recent issues with constipation/diarrhea, and that his last BM was 4-5d ago. Note pt not currently on bowel regimen, per chart review. Pt states some recent wt loss, but unsure of amount/timeframe. Note unable to determine recent wt hx, per chart review. Upon visual exam, pt appears to be adequately nourished with no visible signs of muscle/fat wasting that could be attributed to malnutrition or advanced age. Given wt hx and visual exam, pt does not meet criteria for malnutrition per ASPEN guidelines at this time. ABNORMAL NUTRITION-RELATED LAB VALUES LOW: Ca 7.5; Pro 5.8; alb 2.2 HIGH: AST 86; ALT 62 Est. kcal needs: 7005-7143 | 25-30 kcal/kg Est. Pro needs: 64-77 g Pro | 1.0-1.2 g Pro/kg PES STATEMENT: Inadequate oral intake (NI-2.1) related to loss of appetite | nausea as evidenced by pt interview | PO intake 10% x1meal INTERVENTION: Continue with current diet order of Regular diet. Continue with current supplementation order of Ensure Enlive, for increased kcal intake. Provides 350 kcal and 13 g Pro per serving. Will continue to follow and reassess as pt needs, intake and status change. MONITOR/EVALUATE: PO Intake; Plan of Care; Hydration Status; Weight Status; Lab Values Vane Colunga, MS, RD, LD"
[2019-08-06] MEDS ORDERED: NS 100 ML (IVPB) BAG IV ONE (13:00)
[2019-08-06] MEDS ORDERED: CATHETER FLUSH 10 ML SYR IV PRN (13:00)
[2019-08-06] MEDS ORDERED: HOLD METFORMIN - RECEIVED CONTRAST 20 ML VIAL IV SCH (13:00)
[2019-08-06] MEDS ORDERED: IOHEXOL 350 MG/ML 100 ML (OMNIPAQUE 350) VIAL IV ONE (13:00)
[2019-08-06] MEDS: RT-ALBUTEROL/IPRATROPIUM 3 ML (DUONEB) VIAL INH SCH ×3 (13:58→22:40)
--- NOTE | 2019-08-06 14:11 | Diagnostic Imaging Report ---
EXAMINATION: CT Chest with intravenous contrast. TECHNIQUE: Multiple contiguous axial images were obtained through the chest after the uneventful administration of intravenous contrast. All CT scans use one or more of the following dose optimizing techniques: automated exposure control, MA and/or KvP adjustment based on a patient size and exam type, or iterative reconstruction. HISTORY: Pneumonia. COMPARISON: None available. FINDINGS: Lungs are moderately emphysematous. There is bibasilar consolidation and groundglass concerning for pneumonia. Scattered pulmonary nodules are seen and are likely inflammatory. There are small bilateral pleural effusions. Heart size is normal. There are no coronary artery calcifications. No pericardial effusion. Aorta is normal in caliber. There is no axillary or supraclavicular lymphadenopathy. Mild mediastinal lymphadenopathy is present with right hilar lymph node measuring 12 mm in short axis and the subcarinal lymph node measuring 16 mm in short axis. There is thickening of the distal esophagus. There is a small hiatal hernia. Limited views of the upper abdomen are unremarkable. There are no suspicious osseous lesions. IMPRESSION: 1. Bibasilar consolidation and groundglass with scattered inflammatory appearing nodules concerning for pneumonia. Follow-up exam to document resolution is recommended. 2. Mediastinal lymphadenopathy is likely reactive. 3. Distal esophageal thickening concerning for esophagitis. Consider endoscopy to rule out underlying neoplasm. Dictated by: Dictated on workstation # [id number]
[2019-08-06] MEDS: ENOXAPARIN 40 MG/0.4 ML (LOVENOX) SYR SQ SCH (15:24)
--- NOTE | 2019-08-06 15:24 | Progress Note ---
Subjective Date Seen by a Provider: Aug 06, 2019 Time Seen by a Provider: 15:00 Subjective/Events-last exam doing ok. tolerating clears. no nausea/vomiting. does not recall having a colonoscopy in the past however would like to forgo prep and do as outpatient. Focused Exam Lactate Level 08/05/19 15:14: Lactic Acid Level 1.27 Objective Exam Vital Signs Date Time Temp Pulse Resp B/P (MAP) Pulse Ox O2 Delivery O2 Flow Rate FiO2 08/06/19 13:59 92 Nasal Cannula 2.50 08/06/19 13:24 93 Nasal Cannula 2.50 08/06/19 13:08 37.1 94 93 08/06/19 12:00 37.1 94 16 147/88 (107) 93 Nasal Cannula 2.50 08/06/19 08:00 37.7 88 20 144/81 (102) 94 Nasal Cannula 2.50 08/06/19 08:00 94 Nasal Cannula 2.00 08/06/19 04:00 36.5 76 20 153/88 (109) 95 Nasal Cannula 2.50 08/06/19 00:00 36.2 85 21 132/79 (96) 92 Nasal Cannula 2.50 08/05/19 23:15 37.0 138 89 08/05/19 20:00 Nasal Cannula 2.00 08/05/19 19:08 37.4 93 26 146/94 (111) 92 Nasal Cannula 2.50 2.50 08/05/19 18:40 92 Nasal Cannula 2.00 08/05/19 18:25 37.4 93 26 146/94 92 Nasal Cannula 2.50 08/05/19 18:10 37.0 93 16 135/79 (100) 96 Nasal Cannula 2.00 08/05/19 15:35 37.0 138 16 130/85 92 Nasal Cannula 2.00 I & O 08/06/19 07:00 Intake Total 4560 ml Output Total 1050 ml Balance 3510 ml Capillary Refill : Less Than 3 Seconds General Appearance: No Apparent Distress HEENT: PERRL/EOMI Neck: Full Range of Motion Respiratory: Decreased Breath Sounds, Wheezing Cardiovascular: Regular Rate, Rhythm Gastrointestinal: normal bowel sounds, non tender, soft Extremity: Normal Capillary Refill Neurologic/Psychiatric: Alert, Oriented x3 Skin: Normal Color Lymphatic: No Adenopathy Results Lab Laboratory Tests 08/06/19 05:56: White Blood Count 8.6, Red Blood Count 3.85L, Hemoglobin 11.0#L, Hematocrit 33L, Mean Corpuscular Volume 86, Mean Corpuscular Hemoglobin 29, Mean Corpuscular Hemoglobin Concent 33, Red Cell Distribution Width 15.6H, Platelet Count 285, Mean Platelet Volume 10.6H, Neutrophils (%) (Auto) 83H, Lymphocytes (%) (Auto) 11L, Monocytes (%) (Auto) 6, Eosinophils (%) (Auto) 0, Basophils (%) (Auto) 0, Neutrophils # (Auto) 7.1, Lymphocytes # (Auto) 0.9L, Monocytes # (Auto) 0.5, Eosinophils # (Auto) 0.0, Basophils # (Auto) 0.0, Sodium Level 135, Potassium Level 3.9, Chloride Level 105, Carbon Dioxide Level 23, Anion Gap 7, Blood Urea Nitrogen 15, Creatinine 0.86, Estimat Glomerular Filtration Rate > 60, BUN/Creatinine Ratio 17, Glucose Level 88, Calcium Level 7.5L, Corrected Calcium 8.9, Total Bilirubin 0.4, Aspartate Amino Transf (AST/SGOT) 86H, Alanine Aminotransferase (ALT/SGPT) 62H, Alkaline Phosphatase 59, Total Protein 5.8L, Albumin 2.2L, Procalcitonin 0.30H Microbiology 08/05/19 Blood Culture - Preliminary, Resulted No growth 08/05/19 Influenza Types A,B Antigen (GE) - Final, Complete Assessment/Plan Assessment/Plan Assess & Plan/Chief Complaint dysphagia with reflux esophagitis vs. Hiatal hernia or both. will proceed with EGD in am. Clinical Quality Measures DVT/VTE Risk/Contraindication: Risk Factor Score Per Nursin RFS Level Per Nursing on Admit: 4+=Very High MAYKEL KING MD Aug 06, 2019 15:24
--- NOTE | 2019-08-06 15:25 | Conscious Sedation/ASA ---
Conscious Sedation Pre-Proced Time 15:00 ASA Score 2 For ASA 3 and 4: Consider anesthesia and medical clearance. Also, for patients with a history of failed moderate sedation consider anesthesia. Airway Lungs Heart ASA score ASA 1: a normal healthy patient ASA 2: a patient with a mild systemic disease (mid diabetes, controlled hypertension, obesity ASA 3: a patient with a severe systemic disease that limits activity (angina, COPD, prior Myocardial infarction) ASA 4: a patient with an incapacitating disease that is a constant threat to life (CHF, renal failure) ASA 5: a moribund patient not expected to survive 24 hrs. (ruptured aneurysm) ASA 6: a declared brain- patient whose organs are being harvested. For emergent operations, add the letter E after the classification Mallampati Classification Grade 2 Sedation Plan Analgesia, Amnesia, Plan communicated to team members, Discussed options with patient/fam, Discussed risks with patient/fam The patient is an appropriate candidate to undergo the planned procedure, sedation, and anesthesia. The patient immediately re-assessed prior to indication. MAYKEL KING MD Aug 06, 2019 15:25
--- NOTE | 2019-08-06 15:26 | Progress Note-Pre Operative ---
Pre-Operative Progress Note H&P Reviewed The H&P was reviewed, patient examined and no changes noted. Date Seen by Provider: Aug 06, 2019 Time Seen by Provider: 15:00 Date H&P Reviewed: Aug 06, 2019 Time H&P Reviewed: 15:00 Pre-Operative Diagnosis: dysphagia, GERD, hiatal hernia MAYKEL KING MD Aug 06, 2019 15:26
[2019-08-06] MEDS ORDERED: RT-ALBUTEROL/IPRATROPIUM 3 ML (DUONEB) VIAL INH PRN (16:00)
[2019-08-06] MEDS: AZITHROMYCIN 250 MG TAB (ZITHROMAX) PO SCH (16:06)
[2019-08-06] MEDS: cefTRIAXone 1,000 MG/SWFI 10 ML IV PUSH IV SCH ×2 (16:06)
[2019-08-06] MEDS ORDERED: AZITHROMYCIN 500 MG/NS 250 ML IVPB IV SCH ×2 (17:00)
[2019-08-06 21:31] LABS: HEPATITIS C ANTIBODY C Non-Reactive (Non-Reactive)
[2019-08-07] VITALS (15 sets, daily range): BP systolic 129–174; BP diastolic 76–95
[2019-08-07] MEDS: NS IV 1000 ML 1,000 ML IV SCH ×3 (02:00→16:33)
[2019-08-07] MEDS: RT-ALBUTEROL/IPRATROPIUM 3 ML (DUONEB) VIAL INH SCH ×6 (03:21→22:27)
[2019-08-07 05:48] LABS: HEMOGLOBIN 11.4 G/DL (13.3-17.7); RED CELL DISTRIBUTION WIDTH 15.7 % (10.0-14.5)
[2019-08-07 05:59] LABS: ALANINE AMINOTRANSFERASE 67 U/L (0-55); ALBUMIN 2.4 GM/DL (3.2-4.5); ALKALINE PHOSPHATASE 64 U/L (40-136); BILIRUBIN,TOTAL 0.3 MG/DL (0.1-1.0); BUN/CREATININE RATIO 11; CALCIUM 7.7 MG/DL (8.5-10.1); CARBON DIOXIDE 23 MMOL/L (21-32); CHLORIDE 103 MMOL/L (98-107); CREATININE SERUM 0.82 MG/DL (0.60-1.30); GFR ESTIMATED > 60; GLUCOSE 99 MG/DL (70-105); POTASSIUM 3.6 MMOL/L (3.6-5.0); SODIUM 134 MMOL/L (135-145); TOTAL PROTEIN 6.5 GM/DL (6.4-8.2)
[2019-08-07] MEDS: ASPIRIN E.C. 81 MG (ECOTRIN) TAB PO SCH (07:55)
[2019-08-07] MEDS: PANTOPRAZOLE 40 MG (PROTONIX) VIAL IV SCH (07:55)
--- NOTE | 2019-08-07 10:28 | Progress Note ---
Subjective Subjective/Events-last exam Afebrile, reports feeling "okay". Focused Exam Lactate Level 08/05/19 15:14: Lactic Acid Level 1.27 Objective Exam Last Set of Vital Signs Vital Signs Date Time Temp Pulse Resp B/P (MAP) Pulse Ox O2 Delivery O2 Flow Rate FiO2 08/07/19 08:00 93 Nasal Cannula 2.50 08/07/19 08:00 35.8 94 2 129/88 (102) Capillary Refill : Less Than 3 Seconds I&O Intake and Output 08/07/19 00:00 Intake Total 4080 ml Output Total 3175 ml Balance 905 ml Intake Oral 2080 ml IV Total 2000 ml Output Urine Total 3175 ml # Bowel Movements 1 General: Alert, No Acute Distress Lungs: Other (ronchi) Heart: Other (tachycardic) Neuro: Normal Speech Psych/Mental Status: Mood NL Results/Procedures Lab Laboratory Tests 08/07/19 05:00: White Blood Count 8.0, Red Blood Count 4.04L, Hemoglobin 11.4L, Hematocrit 34L, Mean Corpuscular Volume 84, Mean Corpuscular Hemoglobin 28, Mean Corpuscular Hemoglobin Concent 33, Red Cell Distribution Width 15.7H, Platelet Count 323, Mean Platelet Volume 11.0H, Sodium Level 134L, Potassium Level 3.6, Chloride Level 103, Carbon Dioxide Level 23, Anion Gap 8, Blood Urea Nitrogen 9, Creatinine 0.82, Estimat Glomerular Filtration Rate > 60, BUN/Creatinine Ratio 11, Glucose Level 99, Calcium Level 7.7L, Corrected Calcium 9.0, Total Bilirubin 0.3, Aspartate Amino Transf (AST/SGOT) 97H, Alanine Aminotransferase (ALT/SGPT) 67H, Alkaline Phosphatase 64, Total Protein 6.5, Albumin 2.4L Microbiology 08/05/19 Blood Culture - Preliminary, Resulted No growth 08/05/19 Influenza Types A,B Antigen (GE) - Final, Complete Radiology CT abdomen pelvis 08/04: IMPRESSION: 1. Bilateral pulmonary consolidations and centrilobular nodules are most compatible with multifocal pneumonia and/or aspiration. 2. Moderate size hiatal hernia with circumferential wall thickening of the distal esophagus. This raises the possibility of esophagitis, but underlying neoplasm could also give this appearance. Consider endoscopy for further assessment as patient condition permits. 3. No bowel obstruction, colitis or diverticulitis. 4. Mild trabeculated wall thickening of the urinary bladder may be due to combination of incomplete distention and partial bladder outlet obstruction from prostatomegaly. If patient has hematuria, urology consultation would be advised to assess for bladder neoplasm. CXR 08/04: IMPRESSION: Probable bilateral basilar infiltrate suspicious for pneumonia. Assessment/Plan Assessment/Plan (1) Pneumonia Status: Acute Assessment & Plan: Started on ceftriaxone and azithromycin, Dr. George consulted, appreciate recommendations. 08/06 CT chest done and consistent with pneumonia as well as persistent esophageal thickening finding. Procalcitonin elevated consistent with bacterial infection, continue abx. Qualifiers: Qualified Codes: J18.1 - Lobar pneumonia, unspecified organism (2) Esophageal abnormality Assessment & Plan: Surgery consulted, will likely have EGD. 08/06 plan for scope today (3) Bladder wall thickening Assessment & Plan: No hematuria (4) Decreased appetite Status: Acute Assessment & Plan: CT abdomen concerning for possible esophageal pathology, Surgery consulted. GB US pending. (5) History of CVA (cerebrovascular accident) Assessment & Plan: Not taking home medications, will need to resume statin and antiplatelet. (6) DVT prophylaxis Status: Acute Assessment & Plan: Enoxaparin Clinical Quality Measures DVT/VTE Risk/Contraindication: Risk Factor Score Per Nursin RFS Level Per Nursing on Admit: 4+=Very High BERNICE RANDOLPH MD Aug 07, 2019 10:28
--- NOTE | 2019-08-07 10:35 | NUR ---
Patient taken for procedure at this time.
[2019-08-07] MEDS ORDERED: NS IV 500 ML 500 ML ONE (10:41)
[2019-08-07] MEDS ORDERED: HURRICAINE EXT TUBE (BENZOCAINE) ONE (10:56)
[2019-08-07] MEDS ORDERED: LIDOCAINE JELLY 2% 6 ML SYRINGE ONE (10:56)
[2019-08-07] MEDS ORDERED: MIDAZOLAM 5 MG/5 ML (VERSED) VIAL ONE (10:56)
[2019-08-07] MEDS ORDERED: fentaNYL INJECTION 100 MCG/2 ML AMP ONE (10:56)
[2019-08-07] MEDS: MIDAZOLAM 5 MG/5 ML (VERSED) VIAL IV PRN ×3 (11:00→11:10)
[2019-08-07] MEDS ORDERED: NS IV 500 ML 500 ML IV PRN (11:37)
[2019-08-07] MEDS ORDERED: fentaNYL INJECTION 100 MCG/2 ML AMP IVP ONE (11:45)
[2019-08-07] MEDS ORDERED: LIDOCAINE JELLY 2% 6 ML SYRINGE MM PRN (11:45)
[2019-08-07] MEDS ORDERED: HURRICAINE EXT TUBE (BENZOCAINE) XX PRN (11:45)
--- NOTE | 2019-08-07 12:00 | NUR ---
Patient returned to room from procedure. Assisted patient to recliner, call light within reach and all needs met at this time.
[2019-08-07] MEDS: ENOXAPARIN 40 MG/0.4 ML (LOVENOX) SYR SQ SCH (14:29)
--- NOTE | 2019-08-07 16:07 | OPERATIVE REPORT ---
DATE OF SERVICE: 08/07/2019 ATTENDING PRIMARY CARE PHYSICIAN: Dr. Shannon. ADMITTING PHYSICIAN: Dr. Coronado. PREOPERATIVE DIAGNOSES: Dysphagia, gastroesophageal reflux disease, weight loss. POSTOPERATIVE DIAGNOSES: Reflux esophagitis stage III with a distal esophageal stricture and Schatzki's ring. A large hiatal hernia approximately 4 to 5 cm in size, moderate gastritis. No distal obstructions. PROCEDURE: EGD with biopsy and balloon dilatation. SURGEON: Maykel King MD. ANESTHESIA: Conscious sedation. ESTIMATED BLOOD LOSS: Minimal. FINDINGS: Same as postoperative diagnoses. DISPOSITION: The patient tolerated the procedure well. INDICATIONS: The patient is a 69-year-old male who presented with weight loss, cough, and sputum production. He also had reported that he has lost weight and has had a long-standing history of gastroesophageal reflux disease. Upon further questioning, he does report that he also is experiencing dysphagia as well. A CT scan was performed of the chest, which did show a lesion of the lower aspect of the esophagus, which could not differentiate between a hiatal hernia versus esophageal thickening or combination of both. DESCRIPTION OF PROCEDURE: The patient was brought to the endoscopy suite, laid in left lateral decubitus position. After adequate IV pain and sedative medications and conscious sedation anesthesia, the mouthpiece was applied. The endoscope was placed in the mouth, visualizing the pharynx and hypopharyngeal region. Vocal cords, epiglottis and vallecula identified and appeared to be normal. The endoscope was then gently intubated. Esophageal opening and esophagus insufflated. The endoscope was then advanced to the first, second and third portion of the esophagus at the level of the GE junction. A reflux esophagitis stage III identified. There was also a distal esophageal stricture and Schatzki's ring identified. The GE junction was also intrathoracic consistent with a probable type 4 hiatal hernia. Biopsy was taken of the GE junction with visualization of good hemostasis. The endoscope was then advanced in the stomach and endoscope retroflexed, visualizing a large hiatal hernia, most likely type 4 and 5 cm in size. There was moderate severity gastritis. No formal ulcerations, polyps, or any neoplasms. A biopsy was taken of the antrum to rule out H. pylori with visualization of good hemostasis. The endoscope was then advanced to the pylorus and the first and second portion of the duodenum, which appeared normal with no distal obstructions. The endoscope was then slowly withdrawn while taking a second look. We then proceeded with dilatation of the distal esophageal stricture. The balloon was placed in the stomach and pulled back to the area of stricture. We first proceeded to 2 atmospheres of pressure or 18 mm in diameter with mild resistance. We then proceeded to 4 atmospheres of pressure with moderate resistance and left this in place for approximately 60 seconds. The balloon was then desufflated and removed with visualization of no mucosal tears as well as good hemostasis. The endoscope was then slowly withdrawn while taking a second look and suctioning of residual air with no additional findings. The patient tolerated the procedure well. We will recommend the necessary lifestyle and diet accommodation including small and more frequent meals, avoidance of eating at night as well as head elevation while lying supine. He also needs to avoid caffeinated beverages, spicy, greasy and acidic foods. He also needs pharmacologic acid reduction therapy. We will start him on Protonix 40 mg daily. He is not a surgical candidate for hiatal hernia repair. However, he may have recurrent episodes of dysphagia secondary to a recurrence of the stricture and if so, we will have him follow up for continued graded dilatation. Job ID: [id number] DocumentID: [id number] Dictated Date: 08/07/2019 11:37:15 Water Treatment Operator Date: 08/07/2019 16:06:42 Dictated By: MAYKEL KING MD
[2019-08-07] MEDS: cefTRIAXone 1,000 MG/SWFI 10 ML IV PUSH IV SCH ×2 (16:32)
[2019-08-07] MEDS: AZITHROMYCIN 250 MG TAB (ZITHROMAX) PO SCH (16:32)
[2019-08-08] VITALS: BP 155/89
[2019-08-08] MEDS: NS IV 1000 ML 1,000 ML IV SCH ×3 (00:06→12:20)
[2019-08-08 04:00] VITALS: BP 150/100
[2019-08-08 07:05] LABS: HEMOGLOBIN 11.7 G/DL (13.3-17.7); RED CELL DISTRIBUTION WIDTH 15.7 % (10.0-14.5); WHITE BLOOD COUNT 6.3 10^3/uL (4.3-11.0)
[2019-08-08 07:33] LABS: ALANINE AMINOTRANSFERASE 52 U/L (0-55); ALBUMIN 2.4 GM/DL (3.2-4.5); ALKALINE PHOSPHATASE 56 U/L (40-136); BILIRUBIN,TOTAL 0.4 MG/DL (0.1-1.0); BUN/CREATININE RATIO 9; CALCIUM 8.1 MG/DL (8.5-10.1); CARBON DIOXIDE 21 MMOL/L (21-32); CHLORIDE 103 MMOL/L (98-107); CREATININE SERUM 0.76 MG/DL (0.60-1.30); GFR ESTIMATED > 60; GLUCOSE 79 MG/DL (70-105); POTASSIUM 3.9 MMOL/L (3.6-5.0); SODIUM 135 MMOL/L (135-145); TOTAL PROTEIN 6.6 GM/DL (6.4-8.2)
[2019-08-08 08:00] VITALS: BP 157/97
[2019-08-08] MEDS: RT-ALBUTEROL/IPRATROPIUM 3 ML (DUONEB) VIAL INH SCH ×5 (08:27→21:37)
[2019-08-08] MEDS: ASPIRIN E.C. 81 MG (ECOTRIN) TAB PO SCH (09:06)
[2019-08-08] MEDS: PANTOPRAZOLE 40 MG (PROTONIX) VIAL IV SCH (09:06)
--- NOTE | 2019-08-08 11:45 | Progress Note - Surgery ---
Subjective Time Seen by a Provider: 10:05 Subjective/Events-last exam Pt seen and examined, states he is having no problems after dilation of his esophagus. In fact, pt is super happy because he was final able to eat last night and this am without problems. Review of Systems General: No Chills, No Night Sweats Pulmonary: No Dyspnea, No Cough Cardiovascular: No: Chest Pain, Palpitations Gastrointestinal: No: Nausea, Vomiting, Abdominal Pain Focused Exam Lactate Level 08/05/19 15:14: Lactic Acid Level 1.27 Objective Exam Vital Signs Date Time Temp Pulse Resp B/P (MAP) Pulse Ox O2 Delivery O2 Flow Rate FiO2 08/08/19 08:14 86 Room Air 08/08/19 08:00 36.2 92 20 157/97 (117) 91 Room Air 08/08/19 08:00 86 Room Air 08/08/19 04:00 36.8 87 20 150/100 (117) 92 Room Air 08/08/19 00:00 37.2 85 16 155/89 (111) 92 Room Air 08/07/19 22:27 91 Room Air 08/07/19 21:45 Room Air 08/07/19 20:00 37.2 51 16 151/89 (109) 91 Room Air 08/07/19 18:36 93 Room Air 08/07/19 15:45 36.6 80 18 143/88 (106) 93 Room Air 08/07/19 15:24 94 Room Air 08/07/19 12:00 36.2 81 18 150/81 (104) 93 Nasal Cannula 2.50 I & O 08/08/19 07:00 Intake Total 6240 ml Output Total 1620 ml Balance 4620 ml Capillary Refill : Less Than 3 SecondsLess Than 3 Seconds General Appearance: No Apparent Distress, Thin HEENT: PERRL/EOMI, Moist Mucous Membranes Neck: Full Range of Motion, Supple Respiratory: Decreased Breath Sounds, Wheezing Cardiovascular: Regular Rate, Rhythm, No Murmur Gastrointestinal: normal bowel sounds, non tender, soft Neurologic/Psychiatric: Alert, Oriented x3 Skin: Normal Color Results Lab Laboratory Tests 08/08/19 05:59: White Blood Count 6.3, Red Blood Count 4.11L, Hemoglobin 11.7L, Hematocrit 35L, Mean Corpuscular Volume 85, Mean Corpuscular Hemoglobin 29, Mean Corpuscular Hemoglobin Concent 33, Red Cell Distribution Width 15.7H, Platelet Count 335, Mean Platelet Volume 11.0H, Sodium Level 135, Potassium Level 3.9, Chloride Level 103, Carbon Dioxide Level 21, Anion Gap 11, Blood Urea Nitrogen 7, Creatinine 0.76, Estimat Glomerular Filtration Rate > 60, BUN/Creatinine Ratio 9, Glucose Level 79, Calcium Level 8.1L, Corrected Calcium 9.4, Total Bilirubin 0.4, Aspartate Amino Transf (AST/SGOT) 54H, Alanine Aminotransferase (ALT/SGPT) 52, Alkaline Phosphatase 56, Total Protein 6.6, Albumin 2.4L Microbiology 08/05/19 Blood Culture - Preliminary, Resulted No growth 08/05/19 Influenza Types A,B Antigen (GE) - Final, Complete Assessment/Plan Assessment/Plan Assessment/Plan Esophagitis Schatzki's ring - s/p balloon dilatation Hiatal Hernia Dysphagia - resolved Pt is doing well and can increase diet as tolerated; needs to be on GERD diet. He also was started on PPI and may need Carafate if not written for. From surgery standpoint he can be sent home. Clinical Quality Measures DVT/VTE Risk/Contraindication: Risk Factor Score Per Nursin RFS Level Per Nursing on Admit: 4+=Very High SAM STEIN DO Aug 08, 2019 11:45
[2019-08-08 12:00] VITALS: BP 151/68
--- NOTE | 2019-08-08 12:36 | Progress Note - Hospitalist ---
Subjective HPI/CC On Admission Date Seen by Provider: Aug 08, 2019 Time Seen by Provider: 11:00 Subjective/Events-last exam Patient doing better Dr Bravo dilated the esophageal stricture and now he can eat and drink w/o difficulty Still on O2 and does not wear it at home Very [place] making communication difficult No family at bedside Upset he doesn't get to go home today Trying the wean off O2 in order to see if he can DC without O2 supplement PT OT ordered Ate bfast After rounds family very upset about patient not DC and family member who graduated from [employer] was managing everything on the phone and 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 spoke with family Will check labs and CXR and procalcitonin and prepare for DC tomorrow Home O2 eval will be completed Review of Systems General: Fatigue Pulmonary: Dyspnea Focused Exam Lactate Level Objective Exam Vital Signs Vital Signs Date Time Temp Pulse Resp B/P (MAP) Pulse Ox O2 Delivery O2 Flow Rate FiO2 08/08/19 19:03 92 Nasal Cannula 3.00 08/08/19 16:00 37.2 81 20 169/92 (117) Capillary Refill : Less Than 3 SecondsLess Than 3 Seconds General Appearance: No Apparent Distress, WD/WN, Chronically ill Respiratory: Chest Non Tender, Lungs Clear, No Accessory Muscle Use, No Respiratory Distress, Decreased Breath Sounds Cardiovascular: Regular Rate, Rhythm, No Edema, No Gallop, No JVD, No Murmur, Normal Peripheral Pulses Neurologic/Psychiatric: Alert, Oriented x3, No Motor/Sensory Deficits, Normal Mood/Affect Results/Procedures Lab Laboratory Tests 08/08/19 05:59 Patient resulted labs reviewed. Assessment/Plan Assessment and Plan Assess & Plan/Chief Complaint Assessment: B/L PNA on abx and confirmed with procalcitonin elevation Dysphagia with esophageal thickening on CT scan s/p EGD and dilation Weight loss Smoker [place] HTN New O2 dependence Plan: IV abx Nebs O2 and eval for home assessment Check CXR and labs in am Ambulate PT OT PO intake Diagnosis/Problems Diagnosis/Problems (1) Pneumonia Status: Acute Qualifiers: Pneumonia type: due to unspecified organism Laterality: bilateral Lung location: lower lobe of lung Qualified Codes: J18.1 - Lobar pneumonia, unspecified organism (2) Decreased appetite Status: Acute (3) Esophageal abnormality (4) Bladder wall thickening (5) DVT prophylaxis Status: Acute (6) History of CVA (cerebrovascular accident) Clinical Quality Measures DVT/VTE Risk/Contraindication: Risk Factor Score Per Nursin RFS Level Per Nursing on Admit: 4+=Very High EFRAIN KUO DO Aug 08, 2019 12:36
[2019-08-08] MEDS: ENOXAPARIN 40 MG/0.4 ML (LOVENOX) SYR SQ SCH (15:04)
[2019-08-08 16:00] VITALS: BP 169/92
[2019-08-08] MEDS ORDERED: PANTOPRAZOLE 40 MG (PROTONIX) VIAL IV SCH (16:00)
[2019-08-08] MEDS: cefTRIAXone 1,000 MG/SWFI 10 ML IV PUSH IV SCH ×2 (17:17)
[2019-08-08] MEDS: AZITHROMYCIN 250 MG TAB (ZITHROMAX) PO SCH (17:17)
[2019-08-08] MEDS ORDERED: FUROSEMIDE 40 MG/4 ML INJ (LASIX) IVP ONE (19:30)
[2019-08-08 19:57] VITALS: BP 156/92
[2019-08-09] VITALS: BP 143/91
[2019-08-09] MEDS: RT-ALBUTEROL/IPRATROPIUM 3 ML (DUONEB) VIAL INH SCH ×3 (01:26→11:32)
[2019-08-09 04:00] VITALS: BP 120/81
[2019-08-09 06:20] LABS: BASOPHILS % (AUTO) 0 % (0-10); EOSINOPHILS # (AUTO) 0.1 10^3/uL (0.0-0.3); EOSINOPHILS % (AUTO) 1 % (0-10); HEMATOCRIT 36 % (40-54); HEMOGLOBIN 11.8 G/DL (13.3-17.7); LYMPHOCYTES # (AUTO) 0.8 X 10^3 (1.0-4.0); LYMPHOCYTES % (AUTO) 14 % (12-44); MEAN CORPUSCULAR HEMOGLOBIN 28 PG (25-34); MEAN CORPUSCULAR HGB CONC 33 G/DL (32-36); MEAN CORPUSCULAR VOLUME 85 FL (80-99); MONOCYTES # (AUTO) 0.4 X 10^3 (0.0-1.0); MONOCYTES % (AUTO) 7 % (0-12); NEUTROPHILS # (AUTO) 4.3 X 10^3 (1.8-7.8); NEUTROPHILS % (AUTO) 77 % (42-75); PLATELET COUNT 327 10^3/uL (130-400); RED CELL DISTRIBUTION WIDTH 15.6 % (10.0-14.5); WHITE BLOOD COUNT 5.5 10^3/uL (4.3-11.0)
[2019-08-09 06:43] LABS: ALANINE AMINOTRANSFERASE 51 U/L (0-55); ALBUMIN 2.6 GM/DL (3.2-4.5); ALKALINE PHOSPHATASE 57 U/L (40-136); BILIRUBIN,TOTAL 0.4 MG/DL (0.1-1.0); BUN/CREATININE RATIO 7; CALCIUM 8.4 MG/DL (8.5-10.1); CARBON DIOXIDE 23 MMOL/L (21-32); CHLORIDE 102 MMOL/L (98-107); CREATININE SERUM 0.84 MG/DL (0.60-1.30); GFR ESTIMATED > 60; GLUCOSE 91 MG/DL (70-105); POTASSIUM 3.5 MMOL/L (3.6-5.0); SODIUM 135 MMOL/L (135-145); TOTAL PROTEIN 6.8 GM/DL (6.4-8.2)
[2019-08-09 08:00] VITALS: BP 143/95
--- NOTE | 2019-08-09 09:09 | Pulmonary Progress Note ---
Subjective Time Seen by a Provider: 09:08 Subjective/Events-last exam Pt feels improved. Sepsis Event Evaluation Height, Weight, BMI Height: 5'10.00" Weight: 155lbs. 1.0oz. 70.077745sv; 23.50 BMI Method:Stated Exam Exam Vital Signs Date Time Temp Pulse Resp B/P (MAP) Pulse Ox O2 Delivery O2 Flow Rate FiO2 08/09/19 08:00 36.5 92 18 143/95 (111) 95 Nasal Cannula 3.00 08/09/19 07:50 Nasal Cannula 3.00 08/09/19 07:47 92 Nasal Cannula 3.00 08/09/19 04:00 36.5 79 20 120/81 (94) 96 Nasal Cannula 3.00 08/09/19 01:30 37.0 08/09/19 01:27 93 Nasal Cannula 3.00 08/09/19 00:00 37.4 100 24 143/91 (108) Nasal Cannula 3.00 08/08/19 23:56 37.4 08/08/19 21:37 94 Nasal Cannula 3.00 08/08/19 20:05 Nasal Cannula 3.00 08/08/19 19:57 36.6 98 20 156/92 (113) 98 Room Air 08/08/19 19:03 92 Nasal Cannula 3.00 08/08/19 16:15 92 Nasal Cannula 2.00 08/08/19 16:00 37.2 81 20 169/92 (117) 95 Room Air 08/08/19 12:14 94 Nasal Cannula 3.00 08/08/19 12:00 36.4 88 18 151/68 (95) 92 Room Air I & O 08/09/19 07:00 Intake Total 2670 ml Output Total 969 ml Balance 1701 ml Height & Weight Height: 5'10.00" Weight: 155lbs. 1.0oz. 70.832943fs; 23.50 BMI Method:Stated General Appearance: No Apparent Distress, WD/WN, Chronically ill HEENT: PERRL/EOMI, Moist Mucous Membranes Neck: Full Range of Motion, Supple Respiratory: Chest Non Tender, Lungs Clear, No Accessory Muscle Use, No Respiratory Distress, Decreased Breath Sounds Cardiovascular: Regular Rate, Rhythm, No Edema, No Gallop, No JVD, No Murmur, Normal Peripheral Pulses Capillary Refill: Less Than 3 Seconds Gastrointestinal: normal bowel sounds, non tender, soft Neurologic/Psychiatric: Alert, Oriented x3, No Motor/Sensory Deficits, Normal Mood/Affect Skin: Normal Color Results Lab Laboratory Tests 08/08/19 05:59 08/09/19 06:08 Assessment/Plan Assessment/Plan bilateral pulmonary infiltrates per abdominal CT -Influenza is negative -rocephin dysphagia -Consult speech therapy -Surgery is consulted for EGD [place] use -Education LUIS MALLORY DO Aug 09, 2019 09:09
[2019-08-09] MEDS: PANTOPRAZOLE 40 MG (PROTONIX) VIAL IV SCH (09:49)
[2019-08-09] MEDS: ASPIRIN E.C. 81 MG (ECOTRIN) TAB PO SCH (09:49)
--- NOTE | 2019-08-09 11:40 | NUR ---
PATIENT WAS PLACED ON ROOM AIR FOR 20 MIN. AND OXYGEN SAT DROPPED TO 87% PATIENT PLACED BACK ON OXYGEN AT 3L/M AND SAT RETURNED TO 90% RECOMMEND 3-6 L/M OF OXYGEN Addendum: 08/09/19 at 1141 by SHAYNA SANTAMARIA RT Amended: Links added.
[2019-08-09 12:00] VITALS: BP 150/91
--- NOTE | 2019-08-09 13:16 | Diagnostic Imaging Report ---
INDICATION: Pneumonia. PA and lateral views of chest were obtained. FINDINGS: Heart size is normal. There is a patchy right upper lobe and left basal infiltrate. There is no pleural effusion or pneumothorax. There is air trapping compatible with COPD. IMPRESSION: COPD with patchy bibasilar and right upper lobe infiltrates likely reflecting superimposed pneumonia. Dictated by: Dictated on workstation # [id number]
[2019-08-09] MEDS ORDERED: ATOR40TA PO (13:44)
[2019-08-09] MEDS ORDERED: CEFD300C3 PO (13:44)
--- NOTE | 2019-08-09 13:50 | Discharge Summary ---
Discharge Summary Hospital Course Was the Problem List Reviewed?: Yes Problems/Dx: (1) Pneumonia Status: Acute Qualifiers: Qualified Codes: J18.1 - Lobar pneumonia, unspecified organism (2) Decreased appetite Status: Acute (3) Esophageal abnormality (4) Bladder wall thickening (5) DVT prophylaxis Status: Acute (6) History of CVA (cerebrovascular accident) Hospital Course Date of Admission: Aug 06, 2019 at 10:40 Admission Diagnosis : Family Physician/Provider: [facility] [place] Date of Discharge: 08/09/19 Discharge Diagnosis: PNA, Esophageal stricture s/p dilation EGD, wt loss, smoker, h/o CVA Hospital Course: Patient had an uneventful course after admitted for weight loss and dysphagia and esophageal thickening on CT scan which prompted EGD revealing stricture s/p dilation and resolution of dysphagia. Procalcitonin was trending down at time of DC c/w clinical evaluation and was DC on 4 more days of abx. Patient did require O2 at time of DC and those orders were placed. Labs and Pending Lab Test: Laboratory Tests 08/09/19 06:08: White Blood Count 5.5, Red Blood Count 4.22L, Hemoglobin 11.8L, Hematocrit 36L, Mean Corpuscular Volume 85, Mean Corpuscular Hemoglobin 28, Mean Corpuscular Hemoglobin Concent 33, Red Cell Distribution Width 15.6H, Platelet Count 327, Mean Platelet Volume 10.0, Neutrophils (%) (Auto) 77H, Lymphocytes (%) (Auto) 14, Monocytes (%) (Auto) 7, Eosinophils (%) (Auto) 1, Basophils (%) (Auto) 0, Neutrophils # (Auto) 4.3, Lymphocytes # (Auto) 0.8L, Monocytes # (Auto) 0.4, Eosinophils # (Auto) 0.1, Basophils # (Auto) 0.0, Sodium Level 135, Potassium Level 3.5L, Chloride Level 102, Carbon Dioxide Level 23, Anion Gap 10, Blood Urea Nitrogen 6L, Creatinine 0.84, Estimat Glomerular Filtration Rate > 60, BUN/Creatinine Ratio 7, Glucose Level 91, Calcium Level 8.4L, Corrected Calcium 9.5, Total Bilirubin 0.4, Aspartate Amino Transf (AST/SGOT) 52H, Alanine Aminotransferase (ALT/SGPT) 51, Alkaline Phosphatase 57, Total Protein 6.8, Albumin 2.6L, Procalcitonin 0.18H Microbiology 08/05/19 Blood Culture - Preliminary, Resulted No growth 08/05/19 Influenza Types A,B Antigen (GE) - Final, Complete Home Meds Active Cefdinir 300 Mg Capsule 300 Mg PO BID Lipitor (Atorvastatin Calcium) 40 Mg Tablet 40 Mg PO HS Reported Metoclopramide HCl 5 Mg Tablet 5 Mg PO TID PRN Aspirin EC (Aspirin) 81 Mg Tablet.dr 81 Mg PO DAILY Assessment/Pt Instructions [facility] 1 week Discharge Planning: <30 minutes discharge planning Discharge Instructions Discharge Diet: No Restrictions Activity as Tolerated: Yes Discharge Physical Examination Vital Signs Vital Signs Date Time Temp Pulse Resp B/P (MAP) Pulse Ox O2 Delivery O2 Flow Rate FiO2 08/09/19 12:00 36.4 77 18 150/91 (110) 95 Nasal Cannula 3.00 Allergies: Coded Allergies: No Known Drug Allergies (Unverified , 07/23/13) Discharge Summary Date of Admission Aug 06, 2019 at 10:40 Date of Discharge Discharge Date: Aug 09, 2019 Discharge Diagnosis Assessment: B/L PNA on abx and confirmed with procalcitonin elevation Dysphagia with esophageal thickening on CT scan s/p EGD and dilation Weight loss Smoker [place] HTN New O2 dependence Plan: IV abx Nebs O2 and eval for home assessment Check CXR and labs in am Ambulate PT OT PO intake (1) Pneumonia Status: Acute Qualifiers: Qualified Codes: J18.1 - Lobar pneumonia, unspecified organism (2) Decreased appetite Status: Acute (3) Esophageal abnormality (4) Bladder wall thickening (5) DVT prophylaxis Status: Acute (6) History of CVA (cerebrovascular accident) Clinical Quality Measures DVT/VTE Risk/Contraindication: Risk Factor Score Per Nursin RFS Level Per Nursing on Admit: 4+=Very High EFRAIN KUO DO Aug 09, 2019 13:50
[2019-08-09] MEDS: ENOXAPARIN 40 MG/0.4 ML (LOVENOX) SYR SQ SCH (15:00)
--- OUTSIDE RECORDS SUMMARY | 2019-08-10 06:41 | XMS REPORT ---
Author Author Baldev GARRETT Organization [facility] Address [address] [place] [address] Care Team Providers Care Pond Supervisor Name Role Phone TESSIE GARRETT Unavailable PROBLEMS Type Condition ICD9-CM Code CZG18-JT Code Onset Dates Condition S tatus SNOMED Code Problem Nondependent tobacco use disorder 305.1 Active 825273512 Problem Chronic kidney disease, unspecified stage N18.9 Active 748679965 Problem Cigarette nicotine dependence without complication F17.210 Active 95126043 Problem Erectile dysfunction N52.9 Active 478850471 Problem Cerebrovascular disease I67.9 Active 20853769 Problem Hyperlipidemia E78.5 Active 97581 004 Problem Hypertension I10 Active 0001829 3 ALLERGIES No Information ENCOUNTERS Encounter Location Date Diagnosis [place] [address] [address] Aug, [place] [address] [address] October, Medicare annual wellness visit, subseque nt Z00.00 ; Chronic kidney disease, unspecified stage N18.9 ; Cerebrovascular disease I67.9 ; Hypertension I10 ; Hyperlipidemia E78.5 and Erectile dysfunction N52.9 [facility] [address] [id number] [place] [id number] Feb, Dental caries K02.9 [facility] [address] [address] Nov, Hypertension I10 ; Hyperlipidemia E78.5 ; Chronic kidney disease, unspecified stage N18.9 and Cigarette nicotine dependence without complication F17.210 [facility] [address] [place] [id number] [place] [address] May, Medicare welcome exam Z00.00 ; Encounter for immunization Z23 ; Medicare annual wellness visit, initial Z00.00 and Medicare annual wellness visit, subsequent Z00.00 [facility] [address] [address] 22 Jan, 2016 Hypertension I10 ; Chronic kidney diseas e, unspecified stage N18.9 and Hyperlipidemia, unspecified hyperlipidemia type E78.5 [place] [address] [address] 27 Nov, 2015 Dental caries K02.9 [place] [address] [address] 15 Nov, 2015 Dental examination Z01.20 [place] [address] [address] 17 Jul, 2015 Hyperlipidemia E78.5 [place] [address] [address] 15 May, 2015 Hyperlipidemia E78.5 [place] [address] [address] 09 May, 2015 Hypertension I10 and Cold intolerance R6 8.89 [place] [address] [address] 07 May, 2015 Hypertension I10 ; Cerebrovascular disea se I67.9 ; Cold intolerance R68.89 ; Hyperlipidemia E78.5 and Erectile dysfunction N52.9 [place] [address] [address] 08 Nov, 2014 Essential hypertension, benign 401.1 [place] [address] [address] 14 Sep, 2014 [place] [address] [address] 13 Sep, 2014 [place] [address] [address] Aug, [place] [address] [address] Jul, [place] [address] [address] Jul, 2014 [facility] [place] [facility] [address] [facility] [id number] [facility] [place] [address] Jul, [facility] [place] [facility] [address] [facility] [id number] [facility] [place] [address] Jul, [facility] [place] [facility] [address] [facility] [id number] [facility] [place] [address] Mar, [facility] [place] [facility] [address] [facility] [id number] [place] [address] Mar, [facility] [place] [facility] [address] [facility] [id number] [facility] [place] [address] Mar, [facility] [place] [facility] [address] [facility] [id number] [facility] [place] [address] Mar, [facility] [place] [facility] [address] [id number] [place] [address] Mar, [facility] [place] [facility] [address] [id number] [facility] [place] [address] Mar, [facility] [place] [facility] [address] [facility] [id number] [place] [address] Mar, [facility] [place] [facility] [address] [id number] [place] [address] Mar, [facility] [place] [facility] [address] [facility] [id number] [place] [address] Jan, [facility] [place] [facility] [address] [id number] [place] [address] Jan, [facility] [place] [facility] [address] [facility] [id number] [place] [address] Jan, [facility] [place] [facility] [address] [facility] [id number] [place] [address] Jan, [facility] [place] [facility] [address] [facility] [id number] [place] [address] Dec, [facility] [place] [facility] [address] [id number] [place] [address] Dec, [facility] [place] [facility] [address] [id number] [place] [address] Nov, [facility] [address] [id number] [place] [address] Nov, [facility] [address] [place] [id number] [place] [address] Nov, [facility] [address] [place] [id number] [place] [address] Nov, [facility] [address] [place] [id number] [place] [address] Sep, [facility] [address] [place] [id number] [place] [address] Sep, [facility] [address] [place] [id number] [place] [address] Sep, [facility] [address] [place] [id number] [place] [address] Sep, [facility] [address] [place] [id number] [place] [address] Sep, [facility] [address] [place] [id number] [place] [address] Sep, [facility] [address] [place] [id number] [place] [address] Aug, [facility] [address] [place] [id number] [place] [address] Aug, [facility] [address] [place] [id number] [place] [address] Aug, IMMUNIZATIONS No Known Immunizations SOCIAL HISTORY Never Assessed REASON FOR VISIT PLAN OF CARE VITAL SIGNS Height 69 in 2013-09-08 Weight 155.9 lbs 2013-09-08 Temperature 96.9 degrees Fahrenheit 2013-09-08 Heart Rate 62 bpm 2013-09-08 Respiratory Rate 14 2013-09-08 Blood pressure systolic 152 mmHg 2013-09-08 Blood pressure diastolic 80 mmHg 2013-09-08 MEDICATIONS Unknown Medications RESULTS No Results PROCEDURES No Known procedures INSTRUCTIONS MEDICATIONS ADMINISTERED No Known Medications MEDICAL (GENERAL) HISTORY Type Description Date Medical History hypertension Medical History hyperlipidemia Surgical History STROKE
--- OUTSIDE RECORDS SUMMARY | 2019-08-10 06:41 | XMS REPORT ---
Author Author Baldev GARRETT Organization [facility] Address [address] [place] [address] Care Team Providers Care Housing Property Manager Name Role Phone TESSIE GARRETT Unavailable PROBLEMS Type Condition ICD9-CM Code QGV54-RT Code Onset Dates Condition S tatus SNOMED Code Problem Nondependent tobacco use disorder 305.1 Active 772009224 Problem Chronic kidney disease, unspecified stage N18.9 Active 969280095 Problem Cigarette nicotine dependence without complication F17.210 Active 37225019 Problem Erectile dysfunction N52.9 Active 121800550 Problem Cerebrovascular disease I67.9 Active 13141594 Problem Hyperlipidemia E78.5 Active 93048 004 Problem Hypertension I10 Active 5181677 3 ALLERGIES No Information ENCOUNTERS Encounter Location Date Diagnosis [facility] [address] [facility] [id number] [address] [place] [address] Aug, [facility] [address] [place] [id number] [address] [place] [address] October, Medicare annual wellness vis it, subsequent Z00.00 ; Chronic kidney disease, unspecified stage N18.9 ; Cerebrovascular disease I67.9 ; Hypertension I10 ; Hyperlipidemia E78.5 and Erectile dysfunction N52.9 [facility] [address] [facility] [id number] [address] [place] [id number] Feb, Dental caries K02.9 [facility] [address] [facility] [id number] [address] [place] [address] Nov, Hypertension I10 ; Hyperlipi demia E78.5 ; Chronic kidney disease, unspecified stage N18.9 and Cigarette nicotine dependence without complication F17.210 [facility] [address] [facility] [id number] [address] [place] [address] May, Medicare welcome exam Z00.00 ; Encounter for immunization Z23 ; Medicare annual wellness visit, initial Z00.00 and Medicare annual wellness visit, subsequent Z00.00 [place] [address] [address] 22 Jan, 2016 Hypertension I10 ; Chronic k idney disease, unspecified stage N18.9 and Hyperlipidemia, unspecified hyperlipidemia type E78.5 [place] [address] [place] [id number] [place] [address] 27 Nov, 2015 Dental caries K02.9 [place] [address] [place] [id number] [place] [address] 15 Nov, 2015 Dental examination Z01.20 [place] [address] [place] [id number] [place] [address] 17 Jul, 2015 Hyperlipidemia E78.5 [place] [address] [address] May, Hyperlipidemia E78.5 [place] [address] [place] [id number] [place] [address] 09 May, 2015 Hypertension I10 and Cold in tolerance R68.89 [place] [address] [address] 07 May, 2015 Hypertension I10 ; Cerebrova scular disease I67.9 ; Cold intolerance R68.89 ; Hyperlipidemia E78.5 and Erectile dysfunction N52.9 [place] [address] [place] [id number] [place] [address] 08 Nov, 2014 Essential hypertension, damion gn 401.1 [place] [address] [address] 14 Sep, 2014 [place] [address] [address] 13 Sep, 2014 [place] [address] [place] [id number] [address] [place] [address] Aug, [place] [address] [place] [address] Jul, 2014 [facility] [address] [id number] [address] [place] [address], [place] [address] Jul, 2014 [facility] [place] [facility] [address] [id number] [address] [place] [address], [place] [address] Jul, 2014 [facility] [address] [id number] [address] [place] [address], [place] [address] Jul, 2014 [facility] [place] [facility] [address] [id number] [address] [place] [address], [place] [address] Mar, [facility] [address] [id number] [address] [place] [address], [place] [address] Mar, [facility] [address] [id number] [address] [place] [address], [place] [address] Mar, [facility] [address] [id number] [address] [place] [address], [place] [address] Mar, [facility] [address] [id number] [address] [place] [address], [place] [address] Mar, [facility] [place] [facility] [address] [id number] [address] [place] [address], [place] [address] Mar, [facility] [address] [id number] [address] [place] [address], [place] [address] Mar, [facility] [place] [facility] [address] [id number] [address] [place] [address], [place] [address] Mar, [facility] [place] [facility] [address] [id number] [address] [place] [address], [place] [address] Jan, [facility] [place] [facility] [address] [id number] [address] [place] [address], [place] [address] Jan, [facility] [place] [facility] [address] [id number] [address] [place] [address], [place] [address] Jan, [facility] [place] [facility] [address] [id number] [address] [place] [address], [place] [address] Jan, [facility] [address] [id number] [address] [place] [address], [place] [address] Dec, [facility] [address] [id number] [address] [place] [address], [place] [address] Dec, [facility] [address] [id number] [address] [place] [address], [place] [address] Nov, [facility] [address] [id number] [address] [place] [address], [place] [address] Nov, [facility] [address] [id number] [address] [place] [address], [place] [address] Nov, [facility] [address] [id number] [address] [place] [address], [place] [address] Nov, [facility] [address] [id number] [address] [place] [address], [place] [address] Sep, [facility] [address] [id number] [address] [place] [address] Sep, [facility] [address] [id number] [address] [place] [address], [place] [address] Sep, [facility] [address] [id number] [address] [place] [address] Sep, [facility] [address] [id number] [address] [place] [address] Sep, [facility] [address] [id number] [address] [place] [address] Sep, [facility] [address] [id number] [address] [place] [address] Aug, [facility] [address] [id number] [address] [place] [address] Aug, [facility] [address] [id number] [address] [place] [address] Aug, IMMUNIZATIONS No Known Immunizations SOCIAL HISTORY Never Assessed REASON FOR VISIT PLAN OF CARE VITAL SIGNS Height 65 in 2014-07-15 Weight 150 lbs 2014-07-15 Temperature 96 degrees Fahrenheit 2014-07-15 Heart Rate 60 bpm 2014-07-15 Respiratory Rate 16 2014-07-15 Blood pressure systolic 112 mmHg 2014-07-15 Blood pressure diastolic 70 mmHg 2014-07-15 MEDICATIONS Unknown Medications RESULTS No Results PROCEDURES No Known procedures INSTRUCTIONS MEDICATIONS ADMINISTERED No Known Medications MEDICAL (GENERAL) HISTORY Type Description Date Medical History hypertension Medical History hyperlipidemia Surgical History STROKE
--- OUTSIDE RECORDS SUMMARY | 2019-08-10 06:41 | XMS REPORT ---
Author Author Baldev GARRETT Organization [facility] Address [address] [place] [address] Care Team Providers Care Polymer Chemist Name Role Phone TESSIE GARRETT Unavailable PROBLEMS Type Condition ICD9-CM Code QXY00-LL Code Onset Dates Condition S tatus SNOMED Code Problem Nondependent tobacco use disorder 305.1 Active 408222510 Problem Chronic kidney disease, unspecified stage N18.9 Active 283589884 Problem Cigarette nicotine dependence without complication F17.210 Active 16695962 Problem Erectile dysfunction N52.9 Active 461052121 Problem Cerebrovascular disease I67.9 Active 47749535 Problem Hyperlipidemia E78.5 Active 90967 004 Problem Hypertension I10 Active 7497053 3 ALLERGIES No Information ENCOUNTERS Encounter Location Date Diagnosis [place] [address] [address] Aug, [place] [address] [address] October, Medicare annual wellness visit, subseque nt Z00.00 ; Chronic kidney disease, unspecified stage N18.9 ; Cerebrovascular disease I67.9 ; Hypertension I10 ; Hyperlipidemia E78.5 and Erectile dysfunction N52.9 [facility] [address] [id number] [place] [id number] Feb, Dental caries K02.9 [facility] [address] [address] Nov, Hypertension I10 ; Hyperlipidemia E78.5 ; Chronic kidney disease, unspecified stage N18.9 and Cigarette nicotine dependence without complication F17.210 [facility] [address] [place] [id number] [place] [address] May, Medicare welcome exam Z00.00 ; Encounter for immunization Z23 ; Medicare annual wellness visit, initial Z00.00 and Medicare annual wellness visit, subsequent Z00.00 [facility] [address] [address] 22 Jan, 2016 Hypertension I10 ; Chronic kidney diseas e, unspecified stage N18.9 and Hyperlipidemia, unspecified hyperlipidemia type E78.5 [place] [address] [address] 27 Nov, 2015 Dental caries K02.9 [place] [address] [address] 15 Nov, 2015 Dental examination Z01.20 [place] [address] [address] 17 Jul, 2015 Hyperlipidemia E78.5 [place] [address] [address] 15 May, 2015 Hyperlipidemia E78.5 [place] [address] [address] 09 May, 2015 Hypertension I10 and Cold intolerance R6 8.89 [place] [address] [address] 07 May, 2015 Hypertension I10 ; Cerebrovascular disea se I67.9 ; Cold intolerance R68.89 ; Hyperlipidemia E78.5 and Erectile dysfunction N52.9 [place] [address] [address] 08 Nov, 2014 Essential hypertension, benign 401.1 [place] [address] [address] 14 Sep, 2014 [place] [address] [address] 13 Sep, 2014 [place] [address] [address] Aug, [place] [address] [address] Jul, [place] [address] [address] Jul, 2014 [facility] [place] [facility] [address] [facility] [id number] [facility] [place] [address] Jul, [facility] [place] [facility] [address] [facility] [id number] [facility] [place] [address] Jul, [facility] [place] [facility] [address] [facility] [id number] [facility] [place] [address] Mar, [facility] [place] [facility] [address] [facility] [id number] [place] [address] Mar, [facility] [place] [facility] [address] [facility] [id number] [facility] [place] [address] Mar, [facility] [place] [facility] [address] [facility] [id number] [facility] [place] [address] Mar, [facility] [place] [facility] [address] [id number] [place] [address] Mar, [facility] [place] [facility] [address] [id number] [facility] [place] [address] Mar, [facility] [place] [facility] [address] [facility] [id number] [place] [address] Mar, [facility] [place] [facility] [address] [id number] [place] [address] Mar, [facility] [place] [facility] [address] [facility] [id number] [place] [address] Jan, [facility] [place] [facility] [address] [id number] [place] [address] Jan, [facility] [place] [facility] [address] [facility] [id number] [place] [address] Jan, [facility] [place] [facility] [address] [facility] [id number] [place] [address] Jan, [facility] [place] [facility] [address] [facility] [id number] [place] [address] Dec, [facility] [place] [facility] [address] [id number] [place] [address] Dec, [facility] [place] [facility] [address] [place] [id number] [place] [address] Nov, [facility] [address] [place] [address] [id number] [place] [address] Nov, [facility] [address] [place] [id number] [place] [address] Nov, [facility] [address] [place] [address] [id number] [place] [address] Nov, [facility] [address] [place] [id number] [place] [address] Sep, [facility] [address] [place] [id number] [place] [address] Sep, [facility] [address] [address] Sep, [facility] [address] [address] Sep, [facility] [address] [place] [id number] [place] [address] Sep, [facility] [address] [place] [id number] [place] [address] Sep, [facility] [address] [place] [id number] [place] [address] Aug, [facility] [address] [place] [id number] [place] [address] Aug, [facility] [address] [place] [address] [id number] [place] [address] Aug, IMMUNIZATIONS No Known Immunizations SOCIAL HISTORY Never Assessed REASON FOR VISIT PLAN OF CARE VITAL SIGNS Height 69 in 2013-11-23 Weight 149 lbs 2013-11-23 Temperature 96.8 degrees Fahrenheit 2013-11-23 Heart Rate 62 bpm 2013-11-23 Respiratory Rate 20 2013-11-23 Blood pressure systolic 100 mmHg 2013-11-23 Blood pressure diastolic 68 mmHg 2013-11-23 MEDICATIONS Unknown Medications RESULTS No Results PROCEDURES Procedure Date Ordered Result Body Site ASSAY THYROID STIM HORMONE November 23, 2013 COMPREHEN METABOLIC PANEL November 23, 2013 VENIPUNCT, ROUTINE* November 23, 2013 INSTRUCTIONS MEDICATIONS ADMINISTERED No Known Medications MEDICAL (GENERAL) HISTORY Type Description Date Medical History hypertension Medical History hyperlipidemia Surgical History STROKE
--- OUTSIDE RECORDS SUMMARY | 2019-08-10 06:41 | XMS REPORT ---
Author Author Baldev GARRETT Organization [facility] Address [address] [place] [address] Care Team Providers Care Trouble Dispatcher Name Role Phone TESSIE GARRETT Unavailable PROBLEMS Type Condition ICD9-CM Code SXN16-[id number] Code Onset Dates Condition S tatus SNOMED Code Problem Nondependent tobacco use disorder 305.1 Active 867713821 Problem Chronic kidney disease, unspecified stage N18.9 Active 375276126 Problem Cigarette nicotine dependence without complication F17.210 Active 38514231 Problem Erectile dysfunction N52.9 Active 736004793 Problem Cerebrovascular disease I67.9 Active 93070903 Problem Hyperlipidemia E78.5 Active 34181 004 Problem Hypertension I10 Active 3797054 3 ALLERGIES No Information ENCOUNTERS Encounter Location Date Diagnosis [place] [address] [address] Aug, [place] [address] [address] October, Medicare annual wellness visit, subseque nt Z00.00 ; Chronic kidney disease, unspecified stage N18.9 ; Cerebrovascular disease I67.9 ; Hypertension I10 ; Hyperlipidemia E78.5 and Erectile dysfunction N52.9 [facility] [address] [id number] [place] [id number] Feb, Dental caries K02.9 [facility] [address] [address] Nov, Hypertension I10 ; Hyperlipidemia E78.5 ; Chronic kidney disease, unspecified stage N18.9 and Cigarette nicotine dependence without complication F17.210 [facility] [address] [place] [id number] [place] [address] May, Medicare welcome exam Z00.00 ; Encounter for immunization Z23 ; Medicare annual wellness visit, initial Z00.00 and Medicare annual wellness visit, subsequent Z00.00 [facility] [address] [address] 22 Jan, 2016 Hypertension I10 ; Chronic kidney diseas e, unspecified stage N18.9 and Hyperlipidemia, unspecified hyperlipidemia type E78.5 [place] [address] [address] 27 Nov, 2015 Dental caries K02.9 [place] [address] [address] 15 Nov, 2015 Dental examination Z01.20 [place] [address] [address] 17 Jul, 2015 Hyperlipidemia E78.5 [place] [address] [address] 15 May, 2015 Hyperlipidemia E78.5 [place] [address] [address] 09 May, 2015 Hypertension I10 and Cold intolerance R6 8.89 [place] [address] [address] 07 May, 2015 Hypertension I10 ; Cerebrovascular disea se I67.9 ; Cold intolerance R68.89 ; Hyperlipidemia E78.5 and Erectile dysfunction N52.9 [place] [address] [address] 08 Nov, 2014 Essential hypertension, benign 401.1 [place] [address] [address] 14 Sep, 2014 [place] [address] [address] 13 Sep, 2014 [place] [address] [address] Aug, [place] [address] [address] Jul, [place] [address] [address] Jul, 2014 [facility] [place] [facility] [address] [facility] [id number] [place] [address] Jul, [facility] [place] [facility] [address] [facility] [id number] [place] [address] Jul, [facility] [place] [facility] [address] [facility] [id number] [place] [address] Mar, [facility] [place] [facility] [address] [facility] [id number] [place] [address] Mar, [facility] [place] [facility] [address] [facility] [id number] [place] [address] Mar, [facility] [place] [facility] [address] [facility] [id number] [place] [address] Mar, [facility] [place] [facility] [address] [id number] [place] [address] Mar, [facility] [place] [facility] [address] [id number] [place] [address] Mar, [facility] [place] [facility] [address] [facility] [id number] [place] [address] Mar, [facility] [place] [facility] [address] [id number] [place] [address] Mar, [facility] [place] [facility] [address] [facility] [id number] [place] [address] Jan, [facility] [place] [facility] [address] [id number] [place] [address] Jan, [facility] [place] [facility] [address] [facility] [id number] [place] [address] Jan, [facility] [place] [facility] [address] [facility] [id number] [place] [address] Jan, [facility] [place] [facility] [address] [facility] [id number] [place] [address] Dec, [facility] [place] [facility] [address] [facility] [place] [address] Dec, [facility] [place] [facility] [address] [id number] [place] [address] Nov, [facility] [address] [id number] [place] [address] Nov, [facility] [address] [id number] [place] [address] Nov, [facility] [address] [id number] [place] [address] Nov, [facility] [address] [place] [id number] [place] [address] Sep, [facility] [address] [place] [id number] [place] [address] Sep, [facility] [address] [place] [id number] [place] [address] Sep, [facility] [address] [place] [id number] [place] [address] Sep, [facility] [address] [place] [id number] [place] [address] Sep, [facility] [address] [facility] [place] [address] Sep, [facility] [address] [place] [id number] [place] [address] Aug, [facility] [address] [place] [id number] [place] [address] Aug, [facility] [address] [place] [id number] [place] [address] Aug, IMMUNIZATIONS No Known Immunizations SOCIAL HISTORY Never Assessed REASON FOR VISIT PLAN OF CARE VITAL SIGNS MEDICATIONS Unknown Medications RESULTS No Results PROCEDURES No Known procedures INSTRUCTIONS MEDICATIONS ADMINISTERED No Known Medications MEDICAL (GENERAL) HISTORY Type Description Date Medical History hypertension Medical History hyperlipidemia Surgical History STROKE
--- OUTSIDE RECORDS SUMMARY | 2019-08-10 06:41 | XMS REPORT ---
Author Author Baldev GARRETT Organization [facility] Address [address] [place] [address] Care Team Providers Care Accounts Payable Representative Name Role Phone TESSIE GARRETT Unavailable PROBLEMS Type Condition ICD9-CM Code [id number] Code Onset Dates Condition S tatus SNOMED Code Problem Nondependent tobacco use disorder 305.1 Active 089345456 Problem Chronic kidney disease, unspecified stage N18.9 Active 741333975 Problem Cigarette nicotine dependence without complication F17.210 Active 30644322 Problem Erectile dysfunction N52.9 Active 924357006 Problem Cerebrovascular disease I67.9 Active 27605107 Problem Hyperlipidemia E78.5 Active 18483 004 Problem Hypertension I10 Active 1413376 3 ALLERGIES No Information ENCOUNTERS Encounter Location Date Diagnosis [place] [address] [address] Aug, [place] [address] [address] October, Medicare annual wellness visit, subseque nt Z00.00 ; Chronic kidney disease, unspecified stage N18.9 ; Cerebrovascular disease I67.9 ; Hypertension I10 ; Hyperlipidemia E78.5 and Erectile dysfunction N52.9 [facility] [address] [id number] [place] [address] Feb, Dental caries K02.9 [facility] [address] [address] Nov, Hypertension I10 ; Hyperlipidemia E78.5 ; Chronic kidney disease, unspecified stage N18.9 and Cigarette nicotine dependence without complication F17.210 [facility] [address] [place] [id number] [place] [address] May, Medicare welcome exam Z00.00 ; Encounter for immunization Z23 ; Medicare annual wellness visit, initial Z00.00 and Medicare annual wellness visit, subsequent Z00.00 [facility] [address] [address] 22 Jan, 2016 Hypertension I10 ; Chronic kidney diseas e, unspecified stage N18.9 and Hyperlipidemia, unspecified hyperlipidemia type E78.5 [place] [address] [address] 27 Nov, 2015 Dental caries K02.9 [place] [address] [address] 15 Nov, 2015 Dental examination Z01.20 [place] [address] [address] 17 Jul, 2015 Hyperlipidemia E78.5 [place] [address] [address] 15 May, 2015 Hyperlipidemia E78.5 [place] [address] [address] 09 May, 2015 Hypertension I10 and Cold intolerance R6 8.89 [place] [address] [address] 07 May, 2015 Hypertension I10 ; Cerebrovascular disea se I67.9 ; Cold intolerance R68.89 ; Hyperlipidemia E78.5 and Erectile dysfunction N52.9 [place] [address] [address] 08 Nov, 2014 Essential hypertension, benign 401.1 [place] [address] [address] 14 Sep, 2014 [place] [address] [address] 13 Sep, 2014 [place] [address] [address] Aug, [place] [address] [address] Jul, [place] [address] [address] Jul, 2014 [facility] [place] [facility] [address] [facility] [id number] [facility] [address] Jul, [facility] [place] [facility] [address] [facility] [id number] [facility] [address] Jul, [facility] [place] [facility] [address] [facility] [id number] [facility] [address] Mar, [facility] [place] [facility] [address] [facility] [id number] [place] [address] Mar, [facility] [place] [facility] [address] [facility] [id number] [facility] [address] Mar, [facility] [place] [facility] [address] [facility] [id number] [facility] [address] Mar, [facility] [place] [facility] [address] [id number] [place] [address] Mar, [facility] [place] [facility] [address] [id number] [place] [address] Mar, [facility] [place] [facility] [address] [facility] [id number] [place] [address] Mar, [facility] [place] [facility] [address] [id number] [place] [address] Mar, [facility] [place] [facility] [address] [facility] [id number] [place] [address] Jan, [facility] [place] [facility] [address] [id number] [place] [address] Jan, [facility] [place] [facility] [address] [facility] [id number] [place] [address] Jan, [facility] [place] [facility] [address] [facility] [id number] [place] [address] Jan, [facility] [place] [facility] [address] [facility] [id number] [place] [address] Dec, [facility] [place] [facility] [address] [facility] [place] [address] Dec, [facility] [place] [facility] [address] [facility] [place] [address] Nov, [facility] [address] [id number] [place] [address] Nov, [facility] [address] [id number] [place] [address] Nov, [facility] [address] [id number] [place] [address] Nov, [facility] [address] [place] [id number] [place] [address] Sep, [facility] [address] [place] [id number] [place] [address] Sep, [facility] [address] [place] [id number] [place] [address] Sep, [facility] [address] [place] [id number] [place] [address] Sep, [facility] [address] [place] [id number] [place] [address] Sep, [facility] [address] [facility] [place] [address] Sep, [facility] [address] [place] [id number] [place] [address] Aug, [facility] [address] [place] [id number] [place] [address] Aug, [facility] [address] [place] [id number] [place] [address] Aug, IMMUNIZATIONS No Known Immunizations SOCIAL HISTORY Never Assessed REASON FOR VISIT Medication question PLAN OF CARE VITAL SIGNS MEDICATIONS Unknown Medications RESULTS No Results PROCEDURES No Known procedures INSTRUCTIONS MEDICATIONS ADMINISTERED No Known Medications MEDICAL (GENERAL) HISTORY Type Description Date Medical History hypertension Medical History hyperlipidemia Surgical History STROKE
--- OUTSIDE RECORDS SUMMARY | 2019-08-10 06:41 | XMS REPORT ---
Author Author Baldev GARRETT Organization [facility] Address [address] [place] [address] Care Team Providers Care Domestic Technician Name Role Phone TESSIE GARRETT Unavailable PROBLEMS Type Condition ICD9-CM Code [id number] Code Onset Dates Condition S tatus SNOMED Code Problem Nondependent tobacco use disorder 305.1 Active 574074317 Problem Chronic kidney disease, unspecified stage N18.9 Active 601672151 Problem Cigarette nicotine dependence without complication F17.210 Active 86463452 Problem Erectile dysfunction N52.9 Active 935764202 Problem Cerebrovascular disease I67.9 Active 29446483 Problem Hyperlipidemia E78.5 Active 30972 004 Problem Hypertension I10 Active 6216940 3 ALLERGIES No Information ENCOUNTERS Encounter Location Date Diagnosis [facility] [address] [facility] [id number] [address] [place] [address] Aug, [facility] [address] [place] [id number] [address] [place] [address] October, Medicare annual wellness vis it, subsequent Z00.00 ; Chronic kidney disease, unspecified stage N18.9 ; Cerebrovascular disease I67.9 ; Hypertension I10 ; Hyperlipidemia E78.5 and Erectile dysfunction N52.9 [facility] [address] [facility] [id number] [address] [place] [id number] Feb, Dental caries K02.9 [facility] [address] [facility] [id number] [address] [place] [address] Nov, Hypertension I10 ; Hyperlipi demia E78.5 ; Chronic kidney disease, unspecified stage N18.9 and Cigarette nicotine dependence without complication F17.210 [facility] [address] [facility] [id number] [address] [place] [address] May, Medicare welcome exam Z00.00 ; Encounter for immunization Z23 ; Medicare annual wellness visit, initial Z00.00 and Medicare annual wellness visit, subsequent Z00.00 [place] [address] [address] 22 Jan, 2016 Hypertension I10 ; Chronic k idney disease, unspecified stage N18.9 and Hyperlipidemia, unspecified hyperlipidemia type E78.5 [place] [address] [place] [id number] [address] [place] [address] 27 Nov, 2015 Dental caries K02.9 [place] [address] [place] [id number] [place] [address] 15 Nov, 2015 Dental examination Z01.20 [place] [address] [place] [id number] [place] [address] 17 Jul, 2015 Hyperlipidemia E78.5 [place] [address] [address] May, Hyperlipidemia E78.5 [place] [address] [place] [id number] [place] [address] 09 May, 2015 Hypertension I10 and Cold in tolerance R68.89 [place] [address] [address] 07 May, 2015 Hypertension I10 ; Cerebrova scular disease I67.9 ; Cold intolerance R68.89 ; Hyperlipidemia E78.5 and Erectile dysfunction N52.9 [place] [address] [place] [id number] [place] [address] 08 Nov, 2014 Essential hypertension, damion gn 401.1 [place] [address] [address] 14 Sep, 2014 [place] [address] [address] 13 Sep, 2014 [place] [address] [place] [id number] [address] [place] [address] Aug, [place] [address] [place] [address] Jul, 2014 [facility] [address] [id number] [address] [place] [address], [place] [address] Jul, 2014 [facility] [place] [facility] [address] [id number] [address] [place] [address], [place] [address] Jul, 2014 [facility] [address] [id number] [address] [place] [address], [place] [address] Jul, 2014 [facility] [place] [facility] [address] [id number] [address] [place] [address], [place] [address] Mar, [facility] [address] [id number] [address] [place] [address], [place] [address] Mar, [facility] [address] [id number] [address] [place] [address], [place] [address] Mar, [facility] [address] [id number] [address] [place] [address], [place] [address] Mar, [facility] [address] [id number] [address] [place] [address], [place] [address] Mar, [facility] [place] [facility] [address] [id number] [address] [place] [address], [place] [address] Mar, [facility] [address] [id number] [address] [place] [address], [place] [address] Mar, [facility] [place] [facility] [address] [id number] [address] [place] [address], [place] [address] Mar, [facility] [place] [facility] [address] [id number] [address] [place] [address], [place] [address] Jan, [facility] [place] [facility] [address] [id number] [address] [place] [address], [place] [address] Jan, [facility] [place] [facility] [address] [id number] [address] [place] [address], [place] [address] Jan, [facility] [place] [facility] [address] [id number] [address] [place] [address], [place] [address] Jan, [facility] [address] [id number] [address] [place] [address] Dec, [facility] [address] [id number] [address] [place] [address] Dec, [facility] [address] [id number] [address] [place] [address] Nov, [facility] [address] [id number] [address] [place] [address] Nov, [facility] [address] [id number] [address] [place] [address] Nov, [facility] [address] [id number] [address] [place] [address] Nov, [facility] [address] [id number] [address] [place] [address] Sep, [facility] [address] [id number] [address] [place] [address] Sep, [facility] [address] [id number] [address] [place] [address] Sep, [facility] [address] [id number] [address] [place] [address] Sep, [facility] [address] [id number] [address] [place] [address] Sep, [facility] [address] [id number] [address] [place] [address] Sep, [facility] [address] [id number] [address] [place] [address] Aug, [facility] [address] [id number] [address] [place] [address] Aug, [facility] [address] [id number] [address] [place] [address] Aug, IMMUNIZATIONS No Known Immunizations SOCIAL HISTORY Never Assessed REASON FOR VISIT PLAN OF CARE VITAL SIGNS MEDICATIONS Unknown Medications RESULTS No Results PROCEDURES No Known procedures INSTRUCTIONS MEDICATIONS ADMINISTERED No Known Medications MEDICAL (GENERAL) HISTORY Type Description Date Medical History hypertension Medical History hyperlipidemia Surgical History STROKE
--- OUTSIDE RECORDS SUMMARY | 2019-08-10 06:41 | XMS REPORT ---
Author Author Baldev GARRETT Organization [facility] Address [address] [place] [address] Care Team Providers Care Wheel Molder Name Role Phone TESSIE GARRETT Unavailable PROBLEMS Type Condition ICD9-CM Code QEX48-EL Code Onset Dates Condition S tatus SNOMED Code Problem Nondependent tobacco use disorder 305.1 Active 629747077 Problem Chronic kidney disease, unspecified stage N18.9 Active 156545544 Problem Cigarette nicotine dependence without complication F17.210 Active 51118924 Problem Erectile dysfunction N52.9 Active 575388312 Problem Cerebrovascular disease I67.9 Active 16584244 Problem Hyperlipidemia E78.5 Active 92337 004 Problem Hypertension I10 Active 6973097 3 ALLERGIES No Information ENCOUNTERS Encounter Location Date Diagnosis [place] [address] [address] Aug, [place] [address] [address] October, Medicare annual wellness visit, subseque nt Z00.00 ; Chronic kidney disease, unspecified stage N18.9 ; Cerebrovascular disease I67.9 ; Hypertension I10 ; Hyperlipidemia E78.5 and Erectile dysfunction N52.9 [facility] [address] [id number] [place] [id number] Feb, Dental caries K02.9 [facility] [address] [address] Nov, Hypertension I10 ; Hyperlipidemia E78.5 ; Chronic kidney disease, unspecified stage N18.9 and Cigarette nicotine dependence without complication F17.210 [facility] [address] [place] [id number] [place] [address] May, Medicare welcome exam Z00.00 ; Encounter for immunization Z23 ; Medicare annual wellness visit, initial Z00.00 and Medicare annual wellness visit, subsequent Z00.00 [facility] [address] [address] 22 Jan, 2016 Hypertension I10 ; Chronic kidney diseas e, unspecified stage N18.9 and Hyperlipidemia, unspecified hyperlipidemia type E78.5 [place] [address] [address] 27 Nov, 2015 Dental caries K02.9 [place] [address] [address] 15 Nov, 2015 Dental examination Z01.20 [place] [address] [address] 17 Jul, 2015 Hyperlipidemia E78.5 [place] [address] [address] 15 May, 2015 Hyperlipidemia E78.5 [place] [address] [address] 09 May, 2015 Hypertension I10 and Cold intolerance R6 8.89 [place] [address] [address] 07 May, 2015 Hypertension I10 ; Cerebrovascular disea se I67.9 ; Cold intolerance R68.89 ; Hyperlipidemia E78.5 and Erectile dysfunction N52.9 [place] [address] [address] 08 Nov, 2014 Essential hypertension, benign 401.1 [place] [address] [address] 14 Sep, 2014 [place] [address] [address] 13 Sep, 2014 [place] [address] [address] Aug, [place] [address] [address] Jul, [place] [address] [address] Jul, 2014 [facility] [place] [facility] [address] [facility] [id number] [facility] [place] [address] Jul, [facility] [place] [facility] [address] [facility] [id number] [facility] [place] [address] Jul, [facility] [place] [facility] [address] [facility] [id number] [facility] [place] [address] Mar, [facility] [place] [facility] [address] [facility] [id number] [place] [address] Mar, [facility] [place] [facility] [address] [facility] [id number] [facility] [place] [address] Mar, [facility] [place] [facility] [address] [facility] [id number] [facility] [place] [address] Mar, [facility] [place] [facility] [address] [id number] [place] [address] Mar, [facility] [place] [facility] [address] [id number] [facility] [place] [address] Mar, [facility] [place] [facility] [address] [facility] [id number] [place] [address] Mar, [facility] [place] [facility] [address] [id number] [place] [address] Mar, [facility] [place] [facility] [address] [facility] [id number] [place] [address] Jan, [facility] [place] [facility] [address] [id number] [place] [address] Jan, [facility] [place] [facility] [address] [facility] [id number] [place] [address] Jan, [facility] [place] [facility] [address] [facility] [id number] [place] [address] Jan, [facility] [place] [facility] [address] [facility] [id number] [place] [address] Dec, [facility] [place] [facility] [address] [id number] [place] [address] Dec, [facility] [place] [facility] [address] [id number] [place] [address] Nov, [facility] [address] [id number] [place] [address] Nov, [facility] [address] [id number] [place] [address] Nov, [facility] [address] [id number] [place] [address] Nov, [facility] [address] [place] [id number] [place] [address] Sep, [facility] [address] [place] [id number] [place] [address] Sep, [facility] [address] [place] [id number] [place] [address] Sep, [facility] [address] [place] [id number] [place] [address] Sep, [facility] [address] [place] [id number] [place] [address] Sep, [facility] [address] [id number] [place] [address] Sep, [facility] [address] [place] [id number] [place] [address] Aug, [facility] [address] [place] [id number] [place] [address] Aug, [facility] [address] [place] [id number] [place] [address] Aug, IMMUNIZATIONS No Known Immunizations SOCIAL HISTORY Never Assessed REASON FOR VISIT PLAN OF CARE VITAL SIGNS MEDICATIONS Unknown Medications RESULTS No Results PROCEDURES No Known procedures INSTRUCTIONS MEDICATIONS ADMINISTERED No Known Medications MEDICAL (GENERAL) HISTORY Type Description Date Medical History hypertension Medical History hyperlipidemia Surgical History STROKE
--- OUTSIDE RECORDS SUMMARY | 2019-08-10 06:41 | XMS REPORT ---
Author Author Baldev GARRETT Organization [facility] Address [address] [place] [address] Care Team Providers Care Customer Service Agent Name Role Phone TESSIE GARRETT Unavailable PROBLEMS Type Condition ICD9-CM Code FDM86-YI Code Onset Dates Condition S tatus SNOMED Code Problem Nondependent tobacco use disorder 305.1 Active 927893706 Problem Chronic kidney disease, unspecified stage N18.9 Active 161266999 Problem Cigarette nicotine dependence without complication F17.210 Active 54851591 Problem Erectile dysfunction N52.9 Active 859448743 Problem Cerebrovascular disease I67.9 Active 13526438 Problem Hyperlipidemia E78.5 Active 40220 004 Problem Hypertension I10 Active 0981718 3 ALLERGIES No Information ENCOUNTERS Encounter Location Date Diagnosis [place] [address] [address] Aug, [place] [address] [address] October, Medicare annual wellness visit, subseque nt Z00.00 ; Chronic kidney disease, unspecified stage N18.9 ; Cerebrovascular disease I67.9 ; Hypertension I10 ; Hyperlipidemia E78.5 and Erectile dysfunction N52.9 [facility] [address] [id number] [place] [address] Feb, Dental caries K02.9 [facility] [address] [address] Nov, Hypertension I10 ; Hyperlipidemia E78.5 ; Chronic kidney disease, unspecified stage N18.9 and Cigarette nicotine dependence without complication F17.210 [facility] [address] [place] [id number] [place] [address] May, Medicare welcome exam Z00.00 ; Encounter for immunization Z23 ; Medicare annual wellness visit, initial Z00.00 and Medicare annual wellness visit, subsequent Z00.00 [facility] [address] [address] 22 Jan, 2016 Hypertension I10 ; Chronic kidney diseas e, unspecified stage N18.9 and Hyperlipidemia, unspecified hyperlipidemia type E78.5 [place] [address] [address] 27 Nov, 2015 Dental caries K02.9 [place] [address] [address] 15 Nov, 2015 Dental examination Z01.20 [place] [address] [address] 17 Jul, 2015 Hyperlipidemia E78.5 [place] [address] [address] 15 May, 2015 Hyperlipidemia E78.5 [place] [address] [address] 09 May, 2015 Hypertension I10 and Cold intolerance R6 8.89 [place] [address] [address] 07 May, 2015 Hypertension I10 ; Cerebrovascular disea se I67.9 ; Cold intolerance R68.89 ; Hyperlipidemia E78.5 and Erectile dysfunction N52.9 [place] [address] [address] 08 Nov, 2014 Essential hypertension, benign 401.1 [place] [address] [address] 14 Sep, 2014 [place] [address] [address] 13 Sep, 2014 [place] [address] [address] Aug, [place] [address] [address] Jul, [place] [address] [address] Jul, 2014 [facility] [place] [facility] [address] [facility] [id number] [facility] [place] [address] Jul, [facility] [place] [facility] [address] [facility] [id number] [facility] [place] [address] Jul, [facility] [place] [facility] [address] [facility] [id number] [facility] [place] [address] Mar, [facility] [place] [facility] [address] [facility] [id number] [place] [address] Mar, [facility] [place] [facility] [address] [facility] [id number] [facility] [place] [address] Mar, [facility] [place] [facility] [address] [facility] [id number] [facility] [place] [address] Mar, [facility] [place] [facility] [address] [id number] [place] [address] Mar, [facility] [place] [facility] [address] [id number] [facility] [place] [address] Mar, [facility] [place] [facility] [address] [facility] [id number] [place] [address] Mar, [facility] [place] [facility] [address] [id number] [place] [address] Mar, [facility] [place] [facility] [address] [facility] [id number] [place] [address] Jan, [facility] [place] [facility] [address] [id number] [place] [address] Jan, [facility] [place] [facility] [address] [facility] [id number] [place] [address] Jan, [facility] [place] [facility] [address] [facility] [id number] [place] [address] Jan, [facility] [place] [facility] [address] [facility] [id number] [place] [address] Dec, [facility] [place] [facility] [address] [id number] [place] [address] Dec, [facility] [place] [facility] [address] [id number] [place] [address] Nov, [facility] [address] [id number] [place] [address] Nov, [facility] [address] [id number] [place] [address] Nov, [facility] [address] [id number] [place] [address] Nov, [facility] [address] [place] [id number] [place] [address] Sep, [facility] [address] [place] [id number] [place] [address] Sep, [facility] [address] [place] [id number] [place] [address] Sep, [facility] [address] [place] [id number] [place] [address] Sep, [facility] [address] [place] [id number] [place] [address] Sep, [facility] [address] [id number] [place] [address] Sep, [facility] [address] [place] [id number] [place] [address] Aug, [facility] [address] [place] [id number] [place] [address] Aug, [facility] [address] [place] [id number] [place] [address] Aug, IMMUNIZATIONS No Known Immunizations SOCIAL HISTORY Never Assessed REASON FOR VISIT PLAN OF CARE VITAL SIGNS MEDICATIONS Unknown Medications RESULTS No Results PROCEDURES No Known procedures INSTRUCTIONS MEDICATIONS ADMINISTERED No Known Medications MEDICAL (GENERAL) HISTORY Type Description Date Medical History hypertension Medical History hyperlipidemia Surgical History STROKE
--- OUTSIDE RECORDS SUMMARY | 2019-08-10 06:41 | XMS REPORT ---
Author Author Baldev GARRETT Organization [facility] Address [address] [place] [address] Care Team Providers Care Utility Plant Operative Name Role Phone TESSIE GARRETT Unavailable PROBLEMS Type Condition ICD9-CM Code AIU17-HJ Code Onset Dates Condition S tatus SNOMED Code Problem Nondependent tobacco use disorder 305.1 Active 300935347 Problem Chronic kidney disease, unspecified stage N18.9 Active 437069845 Problem Cigarette nicotine dependence without complication F17.210 Active 10658021 Problem Erectile dysfunction N52.9 Active 036093821 Problem Cerebrovascular disease I67.9 Active 86844108 Problem Hyperlipidemia E78.5 Active 87615 004 Problem Hypertension I10 Active 1601207 3 ALLERGIES No Information ENCOUNTERS Encounter Location Date Diagnosis [facility] [address] [facility] [id number] [address] [place] [address] Aug, [facility] [address] [place] [id number] [address] [place] [address] October, Medicare annual wellness vis it, subsequent Z00.00 ; Chronic kidney disease, unspecified stage N18.9 ; Cerebrovascular disease I67.9 ; Hypertension I10 ; Hyperlipidemia E78.5 and Erectile dysfunction N52.9 [facility] [address] [facility] [id number] [address] [place] [id number] Feb, Dental caries K02.9 [facility] [address] [facility] [id number] [address] [place] [address] Nov, Hypertension I10 ; Hyperlipi demia E78.5 ; Chronic kidney disease, unspecified stage N18.9 and Cigarette nicotine dependence without complication F17.210 [facility] [address] [facility] [id number] [address] [place] [address] May, Medicare welcome exam Z00.00 ; Encounter for immunization Z23 ; Medicare annual wellness visit, initial Z00.00 and Medicare annual wellness visit, subsequent Z00.00 [place] [address] [address] 22 Jan, 2016 Hypertension I10 ; Chronic k idney disease, unspecified stage N18.9 and Hyperlipidemia, unspecified hyperlipidemia type E78.5 [place] [address] [place] [id number] [place] [address] 27 Nov, 2015 Dental caries K02.9 [place] [address] [place] [id number] [place] [address] 15 Nov, 2015 Dental examination Z01.20 [place] [address] [place] [id number] [place] [address] 17 Jul, 2015 Hyperlipidemia E78.5 [place] [address] [address] May, Hyperlipidemia E78.5 [place] [address] [place] [id number] [place] [address] 09 May, 2015 Hypertension I10 and Cold in tolerance R68.89 [place] [address] [address] 07 May, 2015 Hypertension I10 ; Cerebrova scular disease I67.9 ; Cold intolerance R68.89 ; Hyperlipidemia E78.5 and Erectile dysfunction N52.9 [place] [address] [place] [id number] [place] [address] 08 Nov, 2014 Essential hypertension, damion gn 401.1 [place] [address] [address] 14 Sep, 2014 [place] [address] [address] 13 Sep, 2014 [place] [address] [place] [id number] [address] [place] [address] Aug, [place] [address] [place] [address] Jul, 2014 [facility] [address] [id number] [address] [place] [address], [place] [address] Jul, 2014 [facility] [place] [facility] [address] [id number] [address] [place] [address], [place] [address] Jul, 2014 [facility] [address] [id number] [address] [place] [address], [place] [address] Jul, 2014 [facility] [place] [facility] [address] [id number] [address] [place] [address], [place] [address] Mar, [facility] [address] [id number] [address] [place] [address], [place] [address] Mar, [facility] [address] [id number] [address] [place] [address], [place] [address] Mar, [facility] [address] [id number] [address] [place] [address], [place] [address] Mar, [facility] [address] [id number] [address] [place] [address], [place] [address] Mar, [facility] [place] [facility] [address] [id number] [address] [place] [address], [place] [address] Mar, [facility] [address] [id number] [address] [place] [address], [place] [address] Mar, [facility] [place] [facility] [address] [id number] [address] [place] [address], [place] [address] Mar, [facility] [place] [facility] [address] [id number] [address] [place] [address], [place] [address] Jan, [facility] [place] [facility] [address] [id number] [address] [place] [address], [place] [address] Jan, [facility] [place] [facility] [address] [id number] [address] [place] [address], [place] [address] Jan, [facility] [place] [facility] [address] [id number] [address] [place] [address], [place] [address] Jan, [facility] [address] [id number] [address] [place] [address] Dec, [facility] [address] [id number] [address] [place] [address] Dec, [facility] [address] [id number] [address] [place] [address] Nov, [facility] [address] [id number] [address] [place] [address] Nov, [facility] [address] [id number] [address] [place] [address] Nov, [facility] [address] [id number] [address] [place] [address] Nov, [facility] [address] [id number] [address] [place] [address] Sep, [facility] [address] [id number] [address] [place] [address] Sep, [facility] [address] [id number] [address] [place] [address] Sep, [facility] [address] [id number] [address] [place] [address] Sep, [facility] [address] [id number] [address] [place] [address] Sep, [facility] [address] [id number] [address] [place] [address] Sep, [facility] [address] [id number] [address] [place] [address] Aug, [facility] [address] [id number] [address] [place] [address] Aug, [facility] [address] [id number] [address] [place] [address] Aug, IMMUNIZATIONS No Known Immunizations SOCIAL HISTORY Never Assessed REASON FOR VISIT PLAN OF CARE VITAL SIGNS MEDICATIONS Unknown Medications RESULTS No Results PROCEDURES Procedure Date Ordered Result Body Site LIPID PANEL Mar 16, 2014 COMPREHEN METABOLIC PANEL Mar 16, 2014 VENIPUNCT, ROUTINE* Mar 16, 2014 INSTRUCTIONS MEDICATIONS ADMINISTERED No Known Medications MEDICAL (GENERAL) HISTORY Type Description Date Medical History hypertension Medical History hyperlipidemia Surgical History STROKE
--- OUTSIDE RECORDS SUMMARY | 2019-08-10 06:42 | XMS REPORT ---
Author Author Baldev GARRETT Organization [facility] Address [address] [place] [address] Care Team Providers Care Jack Frame Tender Name Role Phone TESSIE GARRETT Unavailable PROBLEMS Type Condition ICD9-CM Code [id number] Code Onset Dates Condition S tatus SNOMED Code Problem Nondependent tobacco use disorder 305.1 Active 379890448 Problem Chronic kidney disease, unspecified stage N18.9 Active 982956575 Problem Cigarette nicotine dependence without complication F17.210 Active 05414649 Problem Erectile dysfunction N52.9 Active 813332709 Problem Cerebrovascular disease I67.9 Active 06508416 Problem Hyperlipidemia E78.5 Active 63744 004 Problem Hypertension I10 Active 0695470 3 ALLERGIES No Information ENCOUNTERS Encounter Location Date Diagnosis [facility] [address] [facility] [id number] [address] [place] [id number] Aug, [facility] [address] [place] [id number] [address] [place] [address] October, Medicare annual wellness vis it, subsequent Z00.00 ; Chronic kidney disease, unspecified stage N18.9 ; Cerebrovascular disease I67.9 ; Hypertension I10 ; Hyperlipidemia E78.5 and Erectile dysfunction N52.9 [facility] [address] [facility] [id number] [address] [place] [address] [id number] Feb, Dental caries K02.9 [facility] [address] [facility] [id number] [address] [place] [id number] Nov, Hypertension I10 ; Hyperlipi demia E78.5 ; Chronic kidney disease, unspecified stage N18.9 and Cigarette nicotine dependence without complication F17.210 [facility] [address] [facility] [id number] [address] [place] [address] May, Medicare welcome exam Z00.00 ; Encounter for immunization Z23 ; Medicare annual wellness visit, initial Z00.00 and Medicare annual wellness visit, subsequent Z00.00 [place] [address] [address] 22 Jan, 2016 Hypertension I10 ; Chronic k idney disease, unspecified stage N18.9 and Hyperlipidemia, unspecified hyperlipidemia type E78.5 [place] [address] [place] [id number] [address] [place] [id number] 27 Nov, 2015 Dental caries K02.9 [place] [address] [place] [id number] [place] [address] 15 Nov, 2015 Dental examination Z01.20 [place] [address] [place] [id number] [place] [id number] 17 Jul, 2015 Hyperlipidemia E78.5 [place] [address] [address] May, Hyperlipidemia E78.5 [place] [address] [place] [id number] [address] [place] [id number] 09 May, 2015 Hypertension I10 and Cold in tolerance R68.89 [place] [address] [address] 07 May, 2015 Hypertension I10 ; Cerebrova scular disease I67.9 ; Cold intolerance R68.89 ; Hyperlipidemia E78.5 and Erectile dysfunction N52.9 [place] [address] [place] [id number] [address] [place] [id number] 08 Nov, 2014 Essential hypertension, damion gn 401.1 [place] [address] [address] 14 Sep, 2014 [place] [address] [id number] 13 Sep, 2014 [place] [address] [place] [id number] [address] [place] [address] Aug, [place] [address] [place] [address] Jul, 2014 [facility] [address] [id number] [address] [place] [address], [place] [address] Jul, 2014 [facility] [address] [id number] [address] [place] [address], [place] [address] Jul, 2014 [facility] [address] [id number] [address] [place] [address], [place] [address] Jul, 2014 [facility] [address] [id number] [address] [place] [address], [place] [address] Mar, [facility] [address] [id number] [address] [place] [address], [place] [address] Mar, [facility] [address] [id number] [address] [place] [address], [place] [address] Mar, [facility] [address] [id number] [address] [place] [address], [place] [address] Mar, [facility] [address] [id number] [address] [place] [address], [place] [address] Mar, [facility] [address] [id number] [address] [place] [address], [place] [address] Mar, [facility] [address] [id number] [address] [place] [address], [place] [address] Mar, [facility] [address] [id number] [address] [place] [address], [place] [address] Mar, [facility] [address] [id number] [address] [place] [address], [place] [address] Jan, [facility] [address] [id number] [address] [place] [address], [place] [address] Jan, [facility] [address] [id number] [address] [place] [address], [place] [address] Jan, [facility] [address] [id number] [address] [place] [address], [place] [address] Jan, [facility] [address] [id number] [address] [place] [address] Dec, [facility] [address] [id number] [address] [place] [phone] Dec, [facility] [address] [id number] [address] [place] [address] Nov, [facility] [address] [id number] [address] [place] [address] Nov, [facility] [address] [id number] [address] [place] [address] Nov, [facility] [address] [id number] [address] [place] [address] Nov, [facility] [address] [id number] [address] [place] [address] Sep, [facility] [address] [id number] [address] [place] [address] Sep, [facility] [address] [id number] [address] [place] [address] Sep, [facility] [address] [id number] [address] [place] [address] Sep, [facility] [address] [id number] [address] [place] [address] Sep, [facility] [address] [id number] [address] [place] [address] Sep, [facility] [address] [id number] [address] [place] [address] Aug, [facility] [address] [id number] [address] [place] [address] Aug, [facility] [address] [id number] [address] [place] [address] Aug, IMMUNIZATIONS No Known Immunizations SOCIAL HISTORY Never Assessed REASON FOR VISIT PLAN OF CARE VITAL SIGNS MEDICATIONS Unknown Medications RESULTS No Results PROCEDURES No Known procedures INSTRUCTIONS MEDICATIONS ADMINISTERED No Known Medications MEDICAL (GENERAL) HISTORY Type Description Date Medical History hypertension Medical History hyperlipidemia Surgical History STROKE
--- OUTSIDE RECORDS SUMMARY | 2019-08-10 06:42 | XMS REPORT ---
Author Author Baldev GARRETT Organization [facility] Address [address] [place] [address] Care Team Providers Care Residential Remodeling Subcontractor Name Role Phone TESSIE GARRETT Unavailable PROBLEMS Type Condition ICD9-CM Code UGS42-QO Code Onset Dates Condition S tatus SNOMED Code Problem Nondependent tobacco use disorder 305.1 Active 386165400 Problem Cigarette nicotine dependence without complication F17.210 Active 69446177 Problem Chronic kidney disease, unspecified stage N18.9 Active 755865272 Problem Cerebrovascular disease I67.9 Active 91007001 Problem Erectile dysfunction N52.9 Active 753412325 Problem Hypertension I10 Active 6312898 3 Problem Hyperlipidemia E78.5 Active 25058 004 ALLERGIES Substance Reaction Event Type Date Status Levitra Unknown Drug Allergy October, Active ENCOUNTERS Encounter Location Date Diagnosis [facility] [address] [facility] [id number] [address] [place] [id number] October, Medicare annual wellness vis it, subsequent Z00.00 ; Chronic kidney disease, unspecified stage N18.9 ; Cerebrovascular disease I67.9 ; Hypertension I10 ; Hyperlipidemia E78.5 and Erectile dysfunction N52.9 [facility] [address] [facility] [id number] [address] [place] [id number] Feb, Dental caries K02.9 [facility] [address] [facility] [id number] [address] [place] [address] Nov, Hypertension I10 ; Hyperlipi demia E78.5 ; Chronic kidney disease, unspecified stage N18.9 and Cigarette nicotine dependence without complication F17.210 [facility] [address] [facility] [id number] [address] [place] [address] May, Medicare welcome exam Z00.00 ; Encounter for immunization Z23 ; Medicare annual wellness visit, initial Z00.00 and Medicare annual wellness visit, subsequent Z00.00 [facility] [address] [place] [id number] [address] [place] [id number] 22 Jan, 2016 Hypertension I10 ; Chronic k idney disease, unspecified stage N18.9 and Hyperlipidemia, unspecified hyperlipidemia type E78.5 [facility] [address] [place] [id number] [address] [place] [id number] 27 Nov, [address] [facility] [address] [place] [id number] [place] [address] 15 Nov, 2015 Dental examination Z01.20 [place] [address] [address] 17 Jul, 2015 Hyperlipidemia E78.5 [place] [address] [place] [id number] [place] [address] 15 May, 2015 Hyperlipidemia E78.5 [place] [address] [address] 09 May, 2015 Hypertension I10 and Cold in tolerance R68.89 [place] [address] [address] 07 May, 2015 Hypertension I10 ; Cerebrova scular disease I67.9 ; Cold intolerance R68.89 ; Hyperlipidemia E78.5 and Erectile dysfunction N52.9 [place] [address] [address] 08 Nov, 2014 Essential hypertension, damion gn 401.1 [place] [address] [place] [id number] [address] [place] [id number] 14 Sep, 2014 [place] [address] [address] Sep, [place] [address] [place] [id number] [address] [place] [phone] Aug, [place] [address] [address] Jul, [facility] [address] [id number] [address] [place] [address], [place] [address] Jul, 2014 [facility] [address] [id number] [address] [place] [address], [place] [address] Jul, [facility] [address] [id number] [address] [place] [address], [place] [address] Jul, [facility] [address] [id number] [address] [place] [address], [place] [address] Mar, [facility] [address] [id number] [address] [place] [address], [place] [address] Mar, [facility] [address] [id number] [address] [place] [address], [place] [address] Mar, [facility] [address] [id number] [address] [place] [address], [place] [address] Mar, [facility] [address] [id number] [address] [place] [address], [place] [address] Mar, [facility] [address] [id number] [address] [place] [address], [place] [address] Mar, [facility] [address] [id number] [address] [place] [address], [place] [address] Mar, [facility] [address] [id number] [address] [place] [address], [place] [address] Mar, [facility] [address] [id number] [address] [place] [address], [place] [address] Jan, [facility] [address] [id number] [address] [place] [address], [place] [address] Jan, [facility] [address] [id number] [address] [place] [address], [place] [address] Jan, [facility] [address] [id number] [address] [place] [address], [place] [address] Jan, [facility] [address] [id number] [address] [place] [phone] Dec, [facility] [address] [id number] [address] [place] [phone] Dec, [facility] [address] [id number] [address] [place] [address] Nov, [facility] [address] [id number] [address] [place] [phone] Nov, [facility] [address] [id number] [address] [place] [address] Nov, [facility] [address] [id number] [address] [place] [phone] Nov, [facility] [address] [id number] [address] [place] [phone] Sep, [facility] [address] [id number] [address] [place] [phone] Sep, [facility] [address] [id number] [address] [place] [phone] Sep, [facility] [address] [id number] [address] [place] [phone] Sep, [facility] [address] [id number] [address] [place] [phone] Sep, [facility] [address] [id number] [address] [place] [phone] Sep, [facility] [address] [id number] [address] [place] [phone] Aug, [facility] [address] [id number] [address] [place] [phone] Aug, [facility] [address] [id number] [address] [place] [phone] Aug, IMMUNIZATIONS No Known Immunizations SOCIAL HISTORY Never Assessed REASON FOR VISIT Medicare AWV - Subsequent Visit- Leonard Saldivar RN PLAN OF CARE Activity Details Follow Up 1 Year Reason: VITAL SIGNS Height 65 in 2017-10-14 Weight 155 lbs 2017-10-14 Temperature 98.0 degrees Fahrenheit 2017-10-14 Heart Rate 70 bpm 2017-10-14 Respiratory Rate 18 2017-10-14 BMI 25.79 kg/m2 2017-10-14 Blood pressure systolic 118 mmHg 2017-10-14 Blood pressure diastolic 78 mmHg 2017-10-14 MEDICATIONS Medication Instructions Dosage Frequency Start Date End Date Duration S tatus Pravastatin Sodium 20 mg Orally Once a day 1 tablet 24h 90 days Active Lisinopril 5 MG Orally Once a day TAKE ONE TABLET BY MOUTH DAILY IN THE MORNING 24h 90 days Active Aspirin 81 mg take 1 tablet (81 mg) by oral route once daily Sep, Active Triamcinolone Acetonide 0.1 % Externally Twice a day 1 appli cation to affected area 12h Active RESULTS No Results PROCEDURES Procedure Date Ordered Result Body Site [facility] VISIT IPPE/AWV October 14, 2017 ANNUAL WELLNESS VST; PPS SUBSQT VST October 14, 2017 PT TOBACCO SCREEN RCVD TLK October 14, 2017 FALL RISK ASSESSMENT DOCD October 14, 2017 INSTRUCTIONS MEDICATIONS ADMINISTERED No Known Medications MEDICAL (GENERAL) HISTORY Type Description Date Medical History hypertension Medical History hyperlipidemia Surgical History STROKE
--- OUTSIDE RECORDS SUMMARY | 2019-08-10 06:42 | XMS REPORT ---
Author Author Baldev Solano Doctor Organization [facility] Address Unknown Phone Unavailable Care Team Providers Care Adjuster Arbitrator Name Role Phone Migration, Doctor Unavailable Unavailable PROBLEMS Type Condition ICD9-CM Code HIA34-QR Code Onset Dates Condition S tatus SNOMED Code Problem Nondependent tobacco use disorder 305.1 Active 884629259 Problem Chronic kidney disease, unspecified stage N18.9 Active 054595723 Problem Cigarette nicotine dependence without complication F17.210 Active 80345965 Problem Erectile dysfunction N52.9 Active 201638532 Problem Cerebrovascular disease I67.9 Active 17415709 Problem Hyperlipidemia E78.5 Active 61018 004 Problem Hypertension I10 Active 6234274 3 ALLERGIES No Information ENCOUNTERS Encounter Location Date Diagnosis [facility] [address] [place] [id number] [address] [place] [phone] Sep, [facility] [address] [place] [id number] [address] [place] [address] Aug, [facility] [address] [place] [id number] [address] [place] [address] October, Medicare annual wellness vis it, subsequent Z00.00 ; Chronic kidney disease, unspecified stage N18.9 ; Cerebrovascular disease I67.9 ; Hypertension I10 ; Hyperlipidemia E78.5 and Erectile dysfunction N52.9 [facility] [address] [place] [id number] [address] [place] [id number] 29 Feb, 2017 Dental caries K02.9 [facility] [address] [facility] [id number] [address] [place] [id number] 29 Nov, 2016 Hypertension I10 ; Hyperlipi demia E78.5 ; Chronic kidney disease, unspecified stage N18.9 and Cigarette nicotine dependence without complication F17.210 [facility] [address] [place] [id number] [address] [place] [address] May, Medicare welcome exam Z00.00 ; Encounter for immunization Z23 ; Medicare annual wellness visit, initial Z00.00 and Medicare annual wellness visit, subsequent Z00.00 [place] [address] [address] 22 Jan, 2016 Hypertension I10 ; Chronic k idney disease, unspecified stage N18.9 and Hyperlipidemia, unspecified hyperlipidemia type E78.5 [place] [address] [address] 27 Nov, 2015 Dental caries K02.9 [place] [address] [address] 15 Nov, 2015 Dental examination Z01.20 [place] [address] [address] 17 Jul, 2015 Hyperlipidemia E78.5 [place] [address] [address] 15 May, 2015 Hyperlipidemia E78.5 [place] [address] [address] 09 May, 2015 Hypertension I10 and Cold in tolerance R68.89 [place] [address] [address] 07 May, 2015 Hypertension I10 ; Cerebrova scular disease I67.9 ; Cold intolerance R68.89 ; Hyperlipidemia E78.5 and Erectile dysfunction N52.9 [place] [address] [address] 08 Nov, 2014 Essential hypertension, damion gn 401.1 [place] [address] [address] 14 Sep, 2014 [place] [address] [address] 13 Sep, 2014 [place] [address] [address] Aug, [facility] [address] [id number] [address] [place] [address], [place] [address] Jul, 2014 [facility] [address] [id number] [address] [place] [address], [place] [address] Jul, 2014 [facility] [address] [id number] [address] [place] [address], [place] [address] Jul, 2014 [facility] [address] [id number] [address] [place] [address], [place] [address] Jul, 2014 [facility] [address] [id number] [address] [place] [address], [place] [address] Mar, [facility] [address] [id number] [address] [place] [address], [place] [address] Mar, [facility] [address] [id number] [address] [place] [address], [place] [address] Mar, [facility] [address] [id number] [address] [place] [address], [place] [address] Mar, [facility] [address] [id number] [address] [place] [address], [place] [address] Mar, [facility] [address] [id number] [address] [place] [address], [place] [address] Mar, [facility] [address] [id number] [address] [place] [address], [place] [address] Mar, [facility] [address] [id number] [address] [place] [address], [place] [address] Mar, [facility] [address] [id number] [address] [place] [address], [place] [address] Jan, [facility] [address] [id number] [address] [place] [address], [place] [address] Jan, [facility] [address] [id number] [address] [place] [address], [place] [address] Jan, [facility] [address] [id number] [address] [place] [address], [place] [address] Jan, [facility] [address] [id number] [address] [place] [address], [place] [address] Dec, [facility] [address] [id number] [address] [place] [address], [place] [address] Dec, [facility] [address] [id number] [address] [place] [address], [place] [address] Nov, [facility] [address] [id number] [address] [place] [address], [place] [address] Nov, [facility] [address] [id number] [address] [place] [address], [place] [address] Nov, [facility] [address] [id number] [address] [place] [address], [place] [address] Nov, [facility] [address] [id number] [address] [place] [address], [place] [address] Sep, [facility] [address] [id number] [address] [place] [address] Sep, [facility] [address] [id number] [address] [place] [address], [place] [address] Sep, [facility] [address] [id number] [address] [place] [address] Sep, [facility] [address] [id number] [address] [place] [id number] Sep, [facility] [address] [id number] [address] [place] [id number] Sep, [facility] [address] [id number] [address] [place] [phone] Aug, [facility] [address] [id number] [address] [place] [phone] Aug, [facility] [address] [id number] [address] [place] [phone] Aug, IMMUNIZATIONS No Known Immunizations SOCIAL HISTORY Never Assessed REASON FOR VISIT EMR-[facility] [place]AN OF CARE VITAL SIGNS MEDICATIONS Unknown Medications RESULTS No Results PROCEDURES No Known procedures INSTRUCTIONS MEDICATIONS ADMINISTERED No Known Medications MEDICAL (GENERAL) HISTORY Type Description Date Medical History hypertension Medical History hyperlipidemia Surgical History STROKE
--- OUTSIDE RECORDS SUMMARY | 2019-08-10 06:42 | XMS REPORT ---
Author Author Baldev GARRETT Organization [facility] Address [address] [place] [address] Care Team Providers Care Rn Trauma Name Role Phone TESSIE GARRETT Unavailable PROBLEMS Type Condition ICD9-CM Code PYE96-WF Code Onset Dates Condition S tatus SNOMED Code Problem Nondependent tobacco use disorder 305.1 Active 811026517 Problem Chronic kidney disease, unspecified stage N18.9 Active 316473019 Problem Cigarette nicotine dependence without complication F17.210 Active 93431574 Problem Erectile dysfunction N52.9 Active 257205808 Problem Cerebrovascular disease I67.9 Active 65481643 Problem Hyperlipidemia E78.5 Active 70519 004 Problem Hypertension I10 Active 0232110 3 ALLERGIES No Information ENCOUNTERS Encounter Location Date Diagnosis [facility] [address] [facility] [id number] [address] [place] [address] Aug, [facility] [address] [place] [id number] [address] [place] [address] October, Medicare annual wellness vis it, subsequent Z00.00 ; Chronic kidney disease, unspecified stage N18.9 ; Cerebrovascular disease I67.9 ; Hypertension I10 ; Hyperlipidemia E78.5 and Erectile dysfunction N52.9 [facility] [address] [facility] [id number] [address] [place] [id number] Feb, Dental caries K02.9 [facility] [address] [facility] [id number] [address] [place] [address] Nov, Hypertension I10 ; Hyperlipi demia E78.5 ; Chronic kidney disease, unspecified stage N18.9 and Cigarette nicotine dependence without complication F17.210 [facility] [address] [facility] [id number] [address] [place] [address] May, Medicare welcome exam Z00.00 ; Encounter for immunization Z23 ; Medicare annual wellness visit, initial Z00.00 and Medicare annual wellness visit, subsequent Z00.00 [place] [address] [address] 22 Jan, 2016 Hypertension I10 ; Chronic k idney disease, unspecified stage N18.9 and Hyperlipidemia, unspecified hyperlipidemia type E78.5 [place] [address] [place] [id number] [address] [place] [address] 27 Nov, 2015 Dental caries K02.9 [place] [address] [place] [id number] [place] [address] 15 Nov, 2015 Dental examination Z01.20 [place] [address] [place] [id number] [place] [address] 17 Jul, 2015 Hyperlipidemia E78.5 [place] [address] [address] May, Hyperlipidemia E78.5 [place] [address] [place] [id number] [address] [place] [address] 09 May, 2015 Hypertension I10 and Cold in tolerance R68.89 [place] [address] [address] 07 May, 2015 Hypertension I10 ; Cerebrova scular disease I67.9 ; Cold intolerance R68.89 ; Hyperlipidemia E78.5 and Erectile dysfunction N52.9 [place] [address] [place] [id number] [address] [place] [address] 08 Nov, 2014 Essential hypertension, damion gn 401.1 [place] [address] [address] 14 Sep, 2014 [place] [address] [address] 13 Sep, 2014 [place] [address] [place] [id number] [address] [place] [address] Aug, [place] [address] [place] [address] Jul, 2014 [facility] [address] [id number] [address] [place] [address], [place] [address] Jul, 2014 [facility] [address] [id number] [address] [place] [address], [place] [address] Jul, 2014 [facility] [address] [id number] [address] [place] [address], [place] [address] Jul, 2014 [facility] [address] [id number] [address] [place] [address], [place] [address] Mar, [facility] [address] [id number] [address] [place] [address], [place] [address] Mar, [facility] [address] [id number] [address] [place] [address], [place] [address] Mar, [facility] [address] [id number] [address] [place] [address], [place] [address] Mar, [facility] [address] [id number] [address] [place] [address], [place] [address] Mar, [facility] [address] [id number] [address] [place] [address], [place] [address] Mar, [facility] [address] [id number] [address] [place] [address], [place] [address] Mar, [facility] [address] [id number] [address] [place] [address], [place] [address] Mar, [facility] [address] [id number] [address] [place] [address], [place] [address] Jan, [facility] [address] [id number] [address] [place] [address], [place] [address] Jan, [facility] [address] [id number] [address] [place] [address], [place] [address] Jan, [facility] [address] [id number] [address] [place] [address], [place] [address] Jan, [facility] [address] [id number] [address] [place] [address] Dec, [facility] [address] [id number] [address] [place] [address] Dec, [facility] [address] [id number] [address] [place] [address] Nov, [facility] [address] [id number] [address] [place] [address] Nov, [facility] [address] [id number] [address] [place] [address] Nov, [facility] [address] [id number] [address] [place] [address] Nov, [facility] [address] [id number] [address] [place] [address] Sep, [facility] [address] [id number] [address] [place] [address] Sep, [facility] [address] [id number] [address] [place] [address] Sep, [facility] [address] [id number] [address] [place] [address] Sep, [facility] [address] [id number] [address] [place] [address] Sep, [facility] [address] [id number] [address] [place] [address] Sep, [facility] [address] [id number] [address] [place] [address] Aug, [facility] [address] [id number] [address] [place] [address] Aug, [facility] [address] [id number] [address] [place] [address] Aug, IMMUNIZATIONS No Known Immunizations SOCIAL HISTORY Never Assessed REASON FOR VISIT PLAN OF CARE VITAL SIGNS MEDICATIONS Unknown Medications RESULTS No Results PROCEDURES No Known procedures INSTRUCTIONS MEDICATIONS ADMINISTERED No Known Medications MEDICAL (GENERAL) HISTORY Type Description Date Medical History hypertension Medical History hyperlipidemia Surgical History STROKE
--- OUTSIDE RECORDS SUMMARY | 2019-08-10 06:42 | XMS REPORT ---
Author Author Baldev GARRETT Organization [facility] Address [address] [place] [address] Care Team Providers Care Emblem Drawer In Name Role Phone TESSIE GARRETT Unavailable PROBLEMS Type Condition ICD9-CM Code WRV51-DU Code Onset Dates Condition S tatus SNOMED Code Problem Nondependent tobacco use disorder 305.1 Active 443061363 Problem Chronic kidney disease, unspecified stage N18.9 Active 000910504 Problem Cigarette nicotine dependence without complication F17.210 Active 30413999 Problem Erectile dysfunction N52.9 Active 134511561 Problem Cerebrovascular disease I67.9 Active 74125250 Problem Hyperlipidemia E78.5 Active 85791 004 Problem Hypertension I10 Active 5513131 3 ALLERGIES No Information ENCOUNTERS Encounter Location Date Diagnosis [facility] [address] [facility] [id number] [address] [place] [phone] Aug, [facility] [address] [place] [id number] [address] [place] [address] October, Medicare annual wellness vis it, subsequent Z00.00 ; Chronic kidney disease, unspecified stage N18.9 ; Cerebrovascular disease I67.9 ; Hypertension I10 ; Hyperlipidemia E78.5 and Erectile dysfunction N52.9 [facility] [address] [facility] [id number] [address] [place] [id number] Feb, Dental caries K02.9 [facility] [address] [facility] [id number] [address] [place] [address] Nov, Hypertension I10 ; Hyperlipi demia E78.5 ; Chronic kidney disease, unspecified stage N18.9 and Cigarette nicotine dependence without complication F17.210 [facility] [address] [facility] [id number] [address] [place] [address] May, Medicare welcome exam Z00.00 ; Encounter for immunization Z23 ; Medicare annual wellness visit, initial Z00.00 and Medicare annual wellness visit, subsequent Z00.00 [place] [address] [address] 22 Jan, 2016 Hypertension I10 ; Chronic k idney disease, unspecified stage N18.9 and Hyperlipidemia, unspecified hyperlipidemia type E78.5 [place] [address] [place] [id number] [address] [place] [address] 27 Nov, 2015 Dental caries K02.9 [place] [address] [place] [id number] [place] [address] 15 Nov, 2015 Dental examination Z01.20 [place] [address] [place] [id number] [place] [address] 17 Jul, 2015 Hyperlipidemia E78.5 [place] [address] [address] May, Hyperlipidemia E78.5 [place] [address] [place] [id number] [address] [place] [address] 09 May, 2015 Hypertension I10 and Cold in tolerance R68.89 [place] [address] [address] 07 May, 2015 Hypertension I10 ; Cerebrova scular disease I67.9 ; Cold intolerance R68.89 ; Hyperlipidemia E78.5 and Erectile dysfunction N52.9 [place] [address] [place] [id number] [address] [place] [address] 08 Nov, 2014 Essential hypertension, damion gn 401.1 [place] [address] [address] 14 Sep, 2014 [place] [address] [address] 13 Sep, 2014 [place] [address] [place] [id number] [address] [place] [address] Aug, [place] [address] [place] [address] Jul, 2014 [facility] [address] [id number] [address] [place] [address], [place] [address] Jul, 2014 [facility] [address] [id number] [address] [place] [address], [place] [address] Jul, 2014 [facility] [address] [id number] [address] [place] [address], [place] [address] Jul, 2014 [facility] [address] [id number] [address] [place] [address], [place] [address] Mar, [facility] [address] [id number] [address] [place] [address], [place] [address] Mar, [facility] [address] [id number] [address] [place] [address], [place] [address] Mar, [facility] [address] [id number] [address] [place] [address], [place] [address] Mar, [facility] [address] [id number] [address] [place] [address], [place] [address] Mar, [facility] [address] [id number] [address] [place] [address], [place] [address] Mar, [facility] [address] [id number] [address] [place] [address], [place] [address] Mar, [facility] [address] [id number] [address] [place] [address], [place] [address] Mar, [facility] [address] [id number] [address] [place] [address], [place] [address] Jan, [facility] [address] [id number] [address] [place] [address], [place] [address] Jan, [facility] [address] [id number] [address] [place] [address], [place] [address] Jan, [facility] [address] [id number] [address] [place] [address], [place] [address] Jan, [facility] [address] [id number] [address] [place] [address] Dec, [facility] [address] [id number] [address] [place] [address] Dec, [facility] [address] [id number] [address] [place] [address] Nov, [facility] [address] [id number] [address] [place] [address] Nov, [facility] [address] [id number] [address] [place] [address] Nov, [facility] [address] [id number] [address] [place] [address] Nov, [facility] [address] [id number] [address] [place] [address] Sep, [facility] [address] [id number] [address] [place] [address] Sep, [facility] [address] [id number] [address] [place] [address] Sep, [facility] [address] [id number] [address] [place] [address] Sep, [facility] [address] [id number] [address] [place] [address] Sep, [facility] [address] [id number] [address] [place] [address] Sep, [facility] [address] [id number] [address] [place] [address] Aug, [facility] [address] [id number] [address] [place] [address] Aug, [facility] [address] [id number] [address] [place] [address] Aug, IMMUNIZATIONS No Known Immunizations SOCIAL HISTORY Never Assessed REASON FOR VISIT PLAN OF CARE VITAL SIGNS MEDICATIONS Unknown Medications RESULTS No Results PROCEDURES No Known procedures INSTRUCTIONS MEDICATIONS ADMINISTERED No Known Medications MEDICAL (GENERAL) HISTORY Type Description Date Medical History hypertension Medical History hyperlipidemia Surgical History STROKE
--- OUTSIDE RECORDS SUMMARY | 2019-08-10 06:42 | XMS REPORT ---
Author Author Baldev GARRETT Organization [facility] Address [address] [place] [address] Care Team Providers Care Roll Threader Operator Name Role Phone TESSIE GARRETT Unavailable PROBLEMS Type Condition ICD9-CM Code KBL11-PL Code Onset Dates Condition S tatus SNOMED Code Problem Nondependent tobacco use disorder 305.1 Active 985588298 Problem Chronic kidney disease, unspecified stage N18.9 Active 168561171 Problem Cigarette nicotine dependence without complication F17.210 Active 76143245 Problem Erectile dysfunction N52.9 Active 942142430 Problem Cerebrovascular disease I67.9 Active 40338120 Problem Hyperlipidemia E78.5 Active 60580 004 Problem Hypertension I10 Active 1198070 3 ALLERGIES No Information ENCOUNTERS Encounter Location Date Diagnosis [facility] [address] [facility] [id number] [address] [place] [address] Aug, [facility] [address] [place] [id number] [address] [place] [address] October, Medicare annual wellness vis it, subsequent Z00.00 ; Chronic kidney disease, unspecified stage N18.9 ; Cerebrovascular disease I67.9 ; Hypertension I10 ; Hyperlipidemia E78.5 and Erectile dysfunction N52.9 [facility] [address] [facility] [id number] [address] [place] [id number] Feb, Dental caries K02.9 [facility] [address] [facility] [id number] [address] [place] [address] Nov, Hypertension I10 ; Hyperlipi demia E78.5 ; Chronic kidney disease, unspecified stage N18.9 and Cigarette nicotine dependence without complication F17.210 [facility] [address] [facility] [id number] [address] [place] [address] May, Medicare welcome exam Z00.00 ; Encounter for immunization Z23 ; Medicare annual wellness visit, initial Z00.00 and Medicare annual wellness visit, subsequent Z00.00 [place] [address] [address] 22 Jan, 2016 Hypertension I10 ; Chronic k idney disease, unspecified stage N18.9 and Hyperlipidemia, unspecified hyperlipidemia type E78.5 [place] [address] [place] [id number] [address] [place] [address] 27 Nov, 2015 Dental caries K02.9 [place] [address] [place] [id number] [place] [address] 15 Nov, 2015 Dental examination Z01.20 [place] [address] [place] [id number] [place] [address] 17 Jul, 2015 Hyperlipidemia E78.5 [place] [address] [address] May, Hyperlipidemia E78.5 [place] [address] [place] [id number] [address] [place] [address] 09 May, 2015 Hypertension I10 and Cold in tolerance R68.89 [place] [address] [address] 07 May, 2015 Hypertension I10 ; Cerebrova scular disease I67.9 ; Cold intolerance R68.89 ; Hyperlipidemia E78.5 and Erectile dysfunction N52.9 [place] [address] [place] [id number] [address] [place] [address] 08 Nov, 2014 Essential hypertension, damion gn 401.1 [place] [address] [address] 14 Sep, 2014 [place] [address] [address] 13 Sep, 2014 [place] [address] [place] [id number] [address] [place] [address] Aug, [place] [address] [place] [address] Jul, 2014 [facility] [address] [id number] [address] [place] [address], [place] [address] Jul, 2014 [facility] [address] [id number] [address] [place] [address], [place] [address] Jul, 2014 [facility] [address] [id number] [address] [place] [address], [place] [address] Jul, 2014 [facility] [address] [id number] [address] [place] [address], [place] [address] Mar, [facility] [address] [id number] [address] [place] [address], [place] [address] Mar, [facility] [address] [id number] [address] [place] [address], [place] [address] Mar, [facility] [address] [id number] [address] [place] [address], [place] [address] Mar, [facility] [address] [id number] [address] [place] [address], [place] [address] Mar, [facility] [address] [id number] [address] [place] [address], [place] [address] Mar, [facility] [address] [id number] [address] [place] [address], [place] [address] Mar, [facility] [address] [id number] [address] [place] [address], [place] [address] Mar, [facility] [address] [id number] [address] [place] [address], [place] [address] Jan, [facility] [address] [id number] [address] [place] [address], [place] [address] Jan, [facility] [address] [id number] [address] [place] [address], [place] [address] Jan, [facility] [address] [id number] [address] [place] [address], [place] [address] Jan, [facility] [address] [id number] [address] [place] [phone] Dec, [facility] [address] [id number] [address] [place] [address] Dec, [facility] [address] [id number] [address] [place] [address] Nov, [facility] [address] [id number] [address] [place] [address] Nov, [facility] [address] [id number] [address] [place] [phone] Nov, [facility] [address] [id number] [address] [place] [address] Nov, [facility] [address] [id number] [address] [place] [address] Sep, [facility] [address] [id number] [address] [place] [address] Sep, [facility] [address] [id number] [address] [place] [address] Sep, [facility] [address] [id number] [address] [place] [address] Sep, [facility] [address] [id number] [address] [place] [phone] Sep, [facility] [address] [id number] [address] [place] [phone] Sep, [facility] [address] [id number] [address] [place] [id number] Aug, [facility] [address] [id number] [address] [place] [address] Aug, [facility] [address] [id number] [address] [place] [phone] Aug, IMMUNIZATIONS No Known Immunizations SOCIAL HISTORY Never Assessed REASON FOR VISIT PLAN OF CARE VITAL SIGNS MEDICATIONS Unknown Medications RESULTS No Results PROCEDURES No Known procedures INSTRUCTIONS MEDICATIONS ADMINISTERED No Known Medications MEDICAL (GENERAL) HISTORY Type Description Date Medical History hypertension Medical History hyperlipidemia Surgical History STROKE
--- OUTSIDE RECORDS SUMMARY | 2019-08-10 06:42 | XMS REPORT ---
Author Author Baldev Solano Doctor Organization [facility] Address Unknown Phone Unavailable Care Team Providers Care In Home Sales Consultant Name Role Phone Migration, Doctor Unavailable Unavailable PROBLEMS Type Condition ICD9-CM Code AIF19-FO Code Onset Dates Condition S tatus SNOMED Code Problem Nondependent tobacco use disorder 305.1 Active 667659601 Problem Chronic kidney disease, unspecified stage N18.9 Active 654268489 Problem Cigarette nicotine dependence without complication F17.210 Active 07083955 Problem Erectile dysfunction N52.9 Active 717332628 Problem Cerebrovascular disease I67.9 Active 59013831 Problem Hyperlipidemia E78.5 Active 12215 004 Problem Hypertension I10 Active 8411736 3 ALLERGIES No Information ENCOUNTERS Encounter Location Date Diagnosis [facility] [address] [id number] [address] [place] [phone] Sep, [facility] [address] [id number] [address] [place] [phone] Aug, [facility] [address] [id number] [address] [place] [address] October, Medicare annual wellness vis it, subsequent Z00.00 ; Chronic kidney disease, unspecified stage N18.9 ; Cerebrovascular disease I67.9 ; Hypertension I10 ; Hyperlipidemia E78.5 and Erectile dysfunction N52.9 [facility] [address] [facility] [id number] [address] [place] [id number] Feb, Dental caries K02.9 [facility] [address] [facility] [id number] [address] [place] [address] Nov, Hypertension I10 ; Hyperlipi demia E78.5 ; Chronic kidney disease, unspecified stage N18.9 and Cigarette nicotine dependence without complication F17.210 [facility] [address] [id number] [address] [place] [phone] May, Medicare welcome exam Z00.00 ; Encounter for immunization Z23 ; Medicare annual wellness visit, initial Z00.00 and Medicare annual wellness visit, subsequent Z00.00 [place] [address] [id number] 22 Jan, 2016 Hypertension I10 ; Chronic k idney disease, unspecified stage N18.9 and Hyperlipidemia, unspecified hyperlipidemia type E78.5 [place] [address] [address] 27 Nov, 2015 Dental caries K02.9 [place] [address] [address] 15 Nov, 2015 Dental examination Z01.20 [place] [address] [address] 17 Jul, 2015 Hyperlipidemia E78.5 [place] [address] [address] 15 May, 2015 Hyperlipidemia E78.5 [place] [address] [address] 09 May, 2015 Hypertension I10 and Cold in tolerance R68.89 [place] [address] [id number] 07 May, 2015 Hypertension I10 ; Cerebrova scular disease I67.9 ; Cold intolerance R68.89 ; Hyperlipidemia E78.5 and Erectile dysfunction N52.9 [place] [address] [address] 08 Nov, 2014 Essential hypertension, damion gn 401.1 [place] [address] [address] 14 Sep, 2014 [place] [address] [address] 13 Sep, 2014 [place] [address] [address] Aug, [facility] [address] [id number] [address] [place] [address], [place] [address] Jul, 2014 [facility] [address] [id number] [address] [place] [address], [place] [address] Jul, 2014 [facility] [address] [id number] [address] [place] [address], [place] [address] Jul, 2014 [facility] [address] [id number] [address] [place] [address], [place] [address] Jul, 2014 [facility] [address] [id number] [address] [place] [address], [place] [address] Mar, [facility] [address] [id number] [address] [place] [address], [place] [address] Mar, [facility] [address] [id number] [address] [place] [address], [place] [address] Mar, [facility] [address] [id number] [address] [place] [address], [place] [address] Mar, [facility] [address] [id number] [address] [place] [address], [place] [address] Mar, [facility] [address] [id number] [address] [place] [address], [place] [address] Mar, [facility] [address] [id number] [address] [place] [address], [place] [address] Mar, [facility] [address] [id number] [address] [place] [address], [place] [address] Mar, [facility] [address] [id number] [address] [place] [address], [place] [address] Jan, [facility] [address] [id number] [address] [place] [address], [place] [address] Jan, [facility] [address] [id number] [address] [place] [address], [place] [address] Jan, [facility] [address] [id number] [address] [place] [address], [place] [address] Jan, [facility] [address] [id number] [address] [place] [address], [place] [address] Dec, [facility] [address] [id number] [address] [place] [address], [place] [address] Dec, [facility] [address] [id number] [address] [place] [address], [place] [address] Nov, [facility] [address] [id number] [address] [place] [address], [place] [address] Nov, [facility] [address] [id number] [address] [place] [address], [place] [address] Nov, [facility] [address] [id number] [address] [place] [address], [place] [address] Nov, [facility] [address] [id number] [address] [place] [address], [place] [address] Sep, [facility] [address] [id number] [address] [place] [address] Sep, [facility] [address] [id number] [address] [place] [address], [place] [address] Sep, [facility] [address] [id number] [address] [place] [phone] Sep, [facility] [address] [id number] [address] [place] [phone] Sep, [facility] [address] [id number] [address] [place] [phone] Sep, [facility] [address] [id number] [address] [place] [phone] Aug, [facility] [address] [id number] [address] [place] [phone] Aug, [facility] [address] [id number] [address] [place] [phone] Aug, IMMUNIZATIONS No Known Immunizations SOCIAL HISTORY Never Assessed REASON FOR VISIT EMR-[facility] PLAN OF CARE VITAL SIGNS MEDICATIONS Medication Instructions Dosage Frequency Start Date End Date Duration S lisa Lisinopril 10 mg take 1 tablet by Oral route 1 time pe r day Take in am Jul, Active Aspirin 81 mg take 1 tablet (81 mg) by oral route once daily Sep, Active RESULTS No Results PROCEDURES No Known procedures INSTRUCTIONS MEDICATIONS ADMINISTERED No Known Medications MEDICAL (GENERAL) HISTORY Type Description Date Medical History hypertension Medical History hyperlipidemia Surgical History STROKE
--- OUTSIDE RECORDS SUMMARY | 2019-08-10 06:42 | XMS REPORT ---
Author Author Baldev GARRETT [facility] Address [address] [place] [address] Care Team Providers Care Advertising Statistical Clerk Name Role Phone TESSIE GARRETT Unavailable PROBLEMS Type Condition ICD9-CM Code LKN44-PT Code Onset Dates Condition S tatus SNOMED Code Problem Nondependent tobacco use disorder 305.1 Active 503499228 Problem Cigarette nicotine dependence without complication F17.210 Active 39716881 Problem Chronic kidney disease, unspecified stage N18.9 Active 222384128 Problem Hyperlipidemia E78.5 Active 56511 004 Problem Erectile dysfunction N52.9 Active 461285149 Problem Hypertension I10 Active 7988783 3 Problem Cerebrovascular disease I67.9 Active 65887362 ALLERGIES Substance Reaction Event Type Date Status Levitra Unknown Drug Allergy May, Active SOCIAL HISTORY No smoking Hx information available PLAN OF CARE Activity Details Follow Up annually for preventive care , sooner for chronic health maintenance Reason: VITAL SIGNS Height 65 in 2016-05-29 Weight 157 lbs 2016-05-29 Temperature 98.3 degrees Fahrenheit 2016-05-29 Heart Rate 70 bpm 2016-05-29 Respiratory Rate 18 2016-05-29 BMI 26.12 kg/m2 2016-05-29 Blood pressure systolic 122 mmHg 2016-05-29 Blood pressure diastolic 78 mmHg 2016-05-29 MEDICATIONS Medication Instructions Dosage Frequency Start Date End Date Duration S tatus Aspirin 81 mg take 1 tablet (81 mg) by oral route once daily Sep, Active Lisinopril 10 MG TAKE ONE TABLET BY MOUTH DAILY IN THE MORNING 30 Active Pravastatin Sodium 20 mg Orally Once a day 1 tablet 24h 30 Active RESULTS No Results PROCEDURES Procedure Date Ordered Related Diagnosis Body Site ANNUAL ORACIO VST; PERSNL PPS INIT May 29, 2016 TDAP (BOOSTRIX) May 29, 2016 SINGLE IMMUNIZATION ADMIN May 29, 2016 PCV 13 May 29, 2016 IMMUNIZATION ADMIN, EACH ADD (please include units) May 29, 2016 IMMUNIZATIONS Vaccine Route Administration Date Status PCV 13 IM Intramuscular May 29, 2016 Administered TDAP (BOOSTRIX) IM Intramuscular May 29, 2016 Administered
--- OUTSIDE RECORDS SUMMARY | 2019-08-10 06:42 | XMS REPORT ---
Author Author Baldev Solano Doctor Organization [facility] Address Unknown Phone Unavailable Care Team Providers Care Instructional Systems Designer Name Role Phone Migration, Doctor Unavailable Unavailable PROBLEMS Type Condition ICD9-CM Code ZHG77-IU Code Onset Dates Condition S tatus SNOMED Code Problem Nondependent tobacco use disorder 305.1 Active 845037309 Problem Chronic kidney disease, unspecified stage N18.9 Active 739310889 Problem Cigarette nicotine dependence without complication F17.210 Active 03171465 Problem Erectile dysfunction N52.9 Active 185233666 Problem Cerebrovascular disease I67.9 Active 48739980 Problem Hyperlipidemia E78.5 Active 59129 004 Problem Hypertension I10 Active 7612400 3 ALLERGIES No Information ENCOUNTERS Encounter Location Date Diagnosis [facility] [place] [address] [id number] [address] [place] [phone] Aug, [facility] [place] [address] [id number] [address] [place] [address] October, Medicare annual wellness vis it, subsequent Z00.00 ; Chronic kidney disease, unspecified stage N18.9 ; Cerebrovascular disease I67.9 ; Hypertension I10 ; Hyperlipidemia E78.5 and Erectile dysfunction N52.9 [facility] [address] [facility] [id number] [address] [place] [id number] Feb, Dental caries K02.9 [facility] [place] [address] [facility] [id number] [address] [place] [address] Nov, Hypertension I10 ; Hyperlipi demia E78.5 ; Chronic kidney disease, unspecified stage N18.9 and Cigarette nicotine dependence without complication F17.210 [facility] [place] [address] [id number] [address] [place] [phone] May, Medicare welcome exam Z00.00 ; Encounter for immunization Z23 ; Medicare annual wellness visit, initial Z00.00 and Medicare annual wellness visit, subsequent Z00.00 [facility] [place] [address] [facility] [id number] [address] [place] [address] 22 Jan, 2016 Hypertension I10 ; Chronic k idney disease, unspecified stage N18.9 and Hyperlipidemia, unspecified hyperlipidemia type E78.5 [facility] [place] [address] [facility] [id number] [address] [place] [phone] 27 Nov, 2015 Dental caries K02.9 [place] [id number] [place] [id number] 15 Nov, 2015 Dental examination Z01.20 [place] [address] [facility] [id number] [place] [id number] 17 Jul, 2015 Hyperlipidemia E78.5 [place] [id number] [place] [phone] 15 May, 2015 Hyperlipidemia E78.5 [place] [address] [address] 09 May, 2015 Hypertension I10 and Cold in tolerance R68.89 [place] [address] [place] [id number] [address] [place] [address] 07 May, 2015 Hypertension I10 ; Cerebrova scular disease I67.9 ; Cold intolerance R68.89 ; Hyperlipidemia E78.5 and Erectile dysfunction N52.9 [place] [address] [place] [id number] [address] [place] [address] 08 Nov, 2014 Essential hypertension, damion gn 401.1 [facility] [place] [address] [place] [address] [id number] [address] [place] [phone] 14 Sep, 2014 [facility] [place] [id number] [place] [phone] Sep, [place] [address] [place] [address] [id number] [address] [place] [phone] Aug, [facility] [place] [address] [place] [id number] [address] [place] [phone] Jul, [facility] [address] [id number] [address] [place] [address], [place] [address] Jul, 2014 [facility] [address] [id number] [address] [place] [address], [place] [address] Jul, 2014 [facility] [address] [id number] [address] [place] [address], [place] [address] Jul, 2014 [facility] [address] [id number] [address] [place] [address], [place] [address] Mar, [facility] [address] [id number] [address] [place] [address], [place] [address] Mar, [facility] [address] [id number] [address] [place] [address], [place] [address] Mar, [facility] [address] [id number] [address] [place] [address], [place] [address] Mar, [facility] [address] [id number] [address] [place] [address], [place] [address] Mar, [facility] [address] [id number] [address] [place] [address], [place] [address] Mar, [facility] [address] [id number] [address] [place] [address], [place] [address] Mar, [facility] [address] [id number] [address] [place] [address], [place] [address] Mar, [facility] [address] [id number] [address] [place] [address], [place] [address] Jan, [facility] [address] [id number] [address] [place] [address], [place] [address] Jan, [facility] [address] [id number] [address] [place] [address], [place] [address] Jan, [facility] [address] [id number] [address] [place] [address], [place] [address] Jan, [facility] [address] [id number] [address] [place] [address], [place] [address] Dec, [facility] [place] [address] [id number] [address] [place] [phone] Dec, [facility] [place] [address] [id number] [address] [place] [address] Nov, [facility] [place] [address] [id number] [address] [place] [phone] Nov, [facility] [place] [address] [id number] [address] [place] [phone] Nov, [facility] [place] [address] [id number] [address] [place] [phone] Nov, [facility] [place] [address] [id number] [address] [place] [phone] Sep, [facility] [place] [address] [id number] [address] [place] [address] Sep, [facility] [place] [address] [id number] [address] [place] [phone] Sep, [facility] [place] [address] [id number] [address] [place] [phone] Sep, [facility] [place] [address] [id number] [address] [place] [phone] Sep, [facility] [place] [address] [id number] [address] [place] [phone] Sep, [facility] [place] [address] [id number] [address] [place] [phone] Aug, [facility] [place] [address] [id number] [address] [place] [phone] Aug, [facility] [place] [address] [id number] [address] [place] [phone] Aug, IMMUNIZATIONS No Known Immunizations SOCIAL HISTORY Never Assessed REASON FOR VISIT EMR-[facility] PLAN OF CARE VITAL SIGNS MEDICATIONS Unknown Medications RESULTS No Results PROCEDURES No Known procedures INSTRUCTIONS MEDICATIONS ADMINISTERED No Known Medications MEDICAL (GENERAL) HISTORY Type Description Date Medical History hypertension Medical History hyperlipidemia Surgical History STROKE
--- OUTSIDE RECORDS SUMMARY | 2019-08-10 06:42 | XMS REPORT ---
Author Author Baldev GARRETT Organization [facility] [place] Address [address] [place] [address] Care Team Providers Care Human Resource Officer Name Role Phone TESSIE GARRETT Unavailable PROBLEMS Type Condition ICD9-CM Code FNA75-RS Code Onset Dates Condition S tatus SNOMED Code Problem Nondependent tobacco use disorder 305.1 Active 672688182 Problem Chronic kidney disease, unspecified stage N18.9 Active 977320169 Problem Cigarette nicotine dependence without complication F17.210 Active 23143023 Problem Erectile dysfunction N52.9 Active 935500214 Problem Cerebrovascular disease I67.9 Active 99019984 Problem Hyperlipidemia E78.5 Active 11405 004 Problem Hypertension I10 Active 6571367 3 ALLERGIES No Information ENCOUNTERS Encounter Location Date Diagnosis [facility] [place] [address] [facility] [id number] [address] [place] [phone] Aug, [facility] [place] [address] [place] [id number] [address] [place] [phone] October, Medicare annual wellness vis it, subsequent Z00.00 ; Chronic kidney disease, unspecified stage N18.9 ; Cerebrovascular disease I67.9 ; Hypertension I10 ; Hyperlipidemia E78.5 and Erectile dysfunction N52.9 [facility] [address] [facility] [id number] [address] [place] [id number] Feb, Dental caries K02.9 [facility] [place] [address] [facility] [id number] [address] [place] [id number] Nov, Hypertension I10 ; Hyperlipi demia E78.5 ; Chronic kidney disease, unspecified stage N18.9 and Cigarette nicotine dependence without complication F17.210 [facility] [place] [address] [facility] [id number] [address] [place] [id number] May, Medicare welcome exam Z00.00 ; Encounter for immunization Z23 ; Medicare annual wellness visit, initial Z00.00 and Medicare annual wellness visit, subsequent Z00.00 [place] [address] [id number] 22 Jan, 2016 Hypertension I10 ; Chronic k idney disease, unspecified stage N18.9 and Hyperlipidemia, unspecified hyperlipidemia type E78.5 [place] [address] [place] [id number] [address] [place] [id number] 27 Nov, 2015 Dental caries K02.9 [place] [address] [place] [id number] [place] [id number] 15 Nov, 2015 Dental examination Z01.20 [place] [address] [place] [id number] [place] [id number] 17 Jul, 2015 Hyperlipidemia E78.5 [place] [address] [id number] May, Hyperlipidemia E78.5 [place] [address] [place] [id number] [address] [place] [id number] 09 May, 2015 Hypertension I10 and Cold in tolerance R68.89 [place] [address] [id number] 07 May, 2015 Hypertension I10 ; Cerebrova scular disease I67.9 ; Cold intolerance R68.89 ; Hyperlipidemia E78.5 and Erectile dysfunction N52.9 [place] [address] [place] [id number] [address] [place] [id number] 08 Nov, 2014 Essential hypertension, damion gn 401.1 [place] [address] [address] 14 Sep, 2014 [place] [address] [id number] 13 Sep, 2014 [place] [address] [place] [id number] [address] [place] [phone] Aug, [place] [address] [place] [id number] Jul, 2014 [facility] [address] [id number] [address] [place] [address], [place] [id number] Jul, 2014 [facility] [address] [id number] [address] [place] [address], [place] [id number] Jul, 2014 [facility] [address] [id number] [address] [place] [address], [place] [id number] Jul, 2014 [facility] [address] [id number] [address] [place] [address], [place] [id number] Mar, [facility] [address] [id number] [address] [place] [address], [place] [id number] Mar, [facility] [address] [id number] [address] [place] [address], [place] [id number] Mar, [facility] [address] [id number] [address] [place] [address], [place] [id number] Mar, [facility] [address] [id number] [address] [place] [address], [place] [id number] Mar, [facility] [address] [id number] [address] [place] [address], [place] [id number] Mar, [facility] [address] [id number] [address] [place] [address], [place] [id number] Mar, [facility] [address] [id number] [address] [place] [address], [place] [id number] Mar, [facility] [address] [id number] [address] [place] [address], [place] [id number] Jan, [facility] [address] [id number] [address] [place] [address], [place] [id number] Jan, [facility] [address] [id number] [address] [place] [address], [place] [id number] Jan, [facility] [address] [id number] [address] [place] [address], [place] [id number] Jan, [facility] [place] [address] [id number] [address] [place] [id number] Dec, [facility] [place] [address] [id number] [address] [place] [phone] Dec, [facility] [place] [address] [id number] [address] [place] [phone] Nov, [facility] [place] [address] [id number] [address] [place] [phone] Nov, [facility] [place] [address] [id number] [address] [place] [id number] Nov, [facility] [place] [address] [id number] [address] [place] [phone] Nov, [facility] [place] [address] [id number] [address] [place] [phone] Sep, [facility] [place] [address] [id number] [address] [place] [phone] Sep, [facility] [place] [address] [id number] [address] [place] [id number] Sep, [facility] [place] [address] [id number] [address] [place] [phone] Sep, [facility] [place] [address] [id number] [address] [place] [phone] Sep, [facility] [place] [address] [id number] [address] [place] [phone] Sep, [facility] [place] [address] [id number] [address] [place] [phone] Aug, [facility] [place] [address] [id number] [address] [place] [phone] Aug, [facility] [place] [address] [id number] [address] [place] [phone] Aug, IMMUNIZATIONS No Known Immunizations SOCIAL HISTORY Never Assessed REASON FOR VISIT PLAN OF CARE VITAL SIGNS MEDICATIONS Unknown Medications RESULTS No Results PROCEDURES No Known procedures INSTRUCTIONS MEDICATIONS ADMINISTERED No Known Medications MEDICAL (GENERAL) HISTORY Type Description Date Medical History hypertension Medical History hyperlipidemia Surgical History STROKE
--- OUTSIDE RECORDS SUMMARY | 2019-08-10 06:42 | XMS REPORT ---
Author Author Baldev ZAVALA Organization [facility] Address Unknown Care Team Providers Care Tin Recovery Worker Name Role Phone AURY ZAVALA Unavailable PROBLEMS Type Condition ICD9-CM Code CJS95-UM Code Onset Dates Condition S tatus SNOMED Code Problem Nondependent tobacco use disorder 305.1 Active 154467453 Problem Cigarette nicotine dependence without complication F17.210 Active 89480285 Problem Chronic kidney disease, unspecified stage N18.9 Active 012212644 Problem Cerebrovascular disease I67.9 Active 82618671 Problem Erectile dysfunction N52.9 Active 280361931 Problem Hypertension I10 Active 3724995 3 Problem Hyperlipidemia E78.5 Active 25356 004 ALLERGIES Substance Reaction Event Type Date Status Levitra Unknown Drug Allergy Feb, Active ENCOUNTERS Encounter Location Date Diagnosis [facility] [address] [facility] [id number] [address] [place] [phone] October, Medicare annual wellness vis it, subsequent Z00.00 [facility] [address] [facility] [id number] [address] [place] [id number] Feb, Dental caries K02.9 [facility] [address] [facility] [id number] [address] [place] [id number] Nov, Hypertension I10 ; Hyperlipi demia E78.5 ; Chronic kidney disease, unspecified stage N18.9 and Cigarette nicotine dependence without complication F17.210 [facility] [address] [facility] [id number] [address] [place] [phone] May, Medicare welcome exam Z00.00 ; Encounter for immunization Z23 ; Medicare annual wellness visit, initial Z00.00 and Medicare annual wellness visit, subsequent Z00.00 [facility] [address] [facility] [id number] [address] [place] [phone] Jan, Hypertension I10 ; Chronic k idney disease, unspecified stage N18.9 and Hyperlipidemia, unspecified hyperlipidemia type E78.5 [facility] [address] [id number] 27 Nov, 2015 Dental caries K02.9 [facility] [address] [place] [id number] [address] [place] [id number] 15 Nov, 2015 Dental examination Z01.20 [facility] [address] [id number] 17 Jul, 2015 Hyperlipidemia E78.5 [place] [address] [address] 15 May, 2015 Hyperlipidemia E78.5 [place] [address] [address] 09 May, 2015 Hypertension I10 and Cold in tolerance R68.89 [place] [address] [id number] 07 May, 2015 Hypertension I10 ; Cerebrova scular disease I67.9 ; Cold intolerance R68.89 ; Hyperlipidemia E78.5 and Erectile dysfunction N52.9 [place] [address] [id number] 08 Nov, 2014 Essential hypertension, damion gn 401.1 [facility] [address] [id number] 14 Sep, 2014 [facility] [address] [address] 13 Sep, 2014 [facility] [address] [id number] Aug, [facility] [address] [id number] Jul, [facility] [address] [id number] Jul, [facility] [address] [place] [address] Jul, 2014 [facility] [address] [id number] [address] [place] [address], [place] [address] Jul, [facility] [address] [id number] [address] [place] [address], [place] [address] Mar, [facility] [address] [id number] [address] [place] [address], [place] [address] Mar, [facility] [address] [id number] [address] [place] [address], [place] [address] Mar, [facility] [address] [id number] [address] [place] [address], [place] [address] Mar, [facility] [address] [id number] [address] [place] [address], [place] [address] Mar, [facility] [address] [id number] [address] [place] [address], [place] [address] Mar, [facility] [address] [id number] [address] [place] [address], [place] [address] Mar, [facility] [address] [id number] [address] [place] [address], [place] [address] Mar, [facility] [address] [id number] [address] [place] [address], [place] [address] Jan, [facility] [address] [id number] [address] [place] [address], [place] [address] Jan, [facility] [address] [id number] [address] [place] [address], [place] [address] Jan, [facility] [address] [id number] [address] [place] [address], [place] [address] Jan, [facility] [address] [id number] [address] [place] [address], [place] [address] Dec, [facility] [address] [id number] [address] [place] [address], [place] [address] Dec, [facility] [address] [id number] [address] [place] [phone] Nov, [facility] [address] [id number] [address] [place] [phone] Nov, [facility] [address] [id number] [address] [place] [phone] Nov, [facility] [address] [id number] [address] [place] [phone] Nov, [facility] [address] [id number] [address] [place] [phone] Sep, [facility] [address] [id number] [address] [place] [phone] Sep, [facility] [address] [id number] [address] [place] [phone] Sep, [facility] [address] [id number] [address] [place] [phone] Sep, [facility] [address] [id number] [address] [place] [id number] Sep, [facility] [address] [id number] [address] [place] [phone] Sep, [facility] [address] [id number] [address] [place] [id number] Aug, [facility] [address] [id number] [address] [place] [phone] Aug, [facility] [address] [id number] [address] [place] [phone] Aug, IMMUNIZATIONS No Known Immunizations SOCIAL HISTORY Never Assessed REASON FOR VISIT THERESA PLAN OF CARE Activity Details Follow Up prn Reason:As needed VITAL SIGNS Height 65 in 2017-03-01 Blood pressure systolic 147 mmHg 2017-03-01 Blood pressure diastolic 97 mmHg 2017-03-01 MEDICATIONS Medication Instructions Dosage Frequency Start Date [...] daily Sep, Active RESULTS No Results PROCEDURES Procedure Date Ordered Result Body Site LTD ORAL EVALUATION - PROBLEM FOCUS Mar 01, 2017 INTRAORL-PERIAPICAL 1 FILM 87142 Mar 01, 2017 EXTRAC ERUPTED TOOTH/EXPOSED ROOT Mar 01, 2017 INSTRUCTIONS MEDICATIONS ADMINISTERED No Known Medications MEDICAL (GENERAL) HISTORY Type Description Date Medical History hypertension Medical History hyperlipidemia Surgical History STROKE
--- OUTSIDE RECORDS SUMMARY | 2019-08-10 06:42 | XMS REPORT ---
Author Author Baldev GARRETT Organization [employer] Address Unknown Phone Unavailable Care Team Providers Care Radio Aerial Installer Name Role Phone TESSIE GARRETT CP Unavailable Allergies, Adverse Reactions, Alerts Substance Reaction Event Type N.K.D.A. Info Not Available Non Drug Allergy Problems Problem Type Condition Code Onset Dates Condition Statu s Assessment Hypertension I10 Active Problem Need for prophylactic vaccination and inoculation, Inf luenza V04.81 Active Problem Loss of weight 783.21 Active Problem Cerebrovascular disease I67.9 Acti ve Problem Hyperlipidemia E78.5 Active Problem Hypertension I10 Active Problem Unspecified cerebral artery occlusion with cerebral in farction 434.91 Active Problem Nondependent tobacco use disorder 305.1 Active Problem Erectile dysfunction N52.9 Active Problem Essential hypertension, benign 401.1 Active Assessment Erectile dysfunction N52.9 Active Assessment Hyperlipidemia E78.5 Active Assessment Cold intolerance R68.89 Active Assessment Cerebrovascular disease I67.9 Acti ve Medications Medication Code System Code Instructions Start Date End Date Status Dosage Aspirin [facility] [address]-31 81 mg September 08, 2013 satnam e 1 tablet (81 mg) by oral route once daily Lisinopril [facility] 97189497012 10 MG TAKE ONE TABLET BY MOUTH DAILY IN THE MORNING Vardenafil HCl [facility] [address]-94 20 MG Orally Once a day May 09 5 1 tablet as needed Procedures Procedure Coding System Code Date Office Visit, Est Pt., Level 3 CPT-4 78134 D ec 2014 Vital Signs Date/Time: May 09, 2015 Temperature 96.0 F Weight 157.8 lbs Height 65 in BMI 26.26 Index Blood Pressure Diastolic 70 mmHg Blood Pressure Systolic 100 mmHg Cardiac Monitoring Heart Rate 68 bpm Results No Known Results Summary Purpose [employer] Submission
--- OUTSIDE RECORDS SUMMARY | 2019-08-10 06:43 | XMS REPORT ---
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 [address]-42 20 MG Orally Once a day May 17, 2015 1 tablet Results No Known Results Summary Purpose [employer] Submission
--- OUTSIDE RECORDS SUMMARY | 2019-08-10 06:43 | XMS REPORT ---
Author Author Baldev GARRETT Organization [employer] Address Unknown Phone Unavailable Care Team Providers Care Director Of Product Management Name Role Phone TESSIE GARRETT CP Unavailable Allergies No Known Allergies Problems Problem Type Condition Code Onset Dates Condition Statu s Assessment Hypertension I10 Active Problem Need for prophylactic vaccination and inoculation, Inf luenza V04.81 Active Problem Loss of weight 783.21 Active Assessment Cold intolerance R68.89 Active Problem Cerebrovascular disease I67.9 Acti ve Problem Hyperlipidemia E78.5 Active Problem Hypertension I10 Active Problem Unspecified cerebral artery occlusion with cerebral in farction 434.91 Active Problem Nondependent tobacco use disorder 305.1 Active Problem Erectile dysfunction N52.9 Active Problem Essential hypertension, benign 401.1 Active Medications No Known Medications Procedures Procedure Coding System Code Date LIPID PANEL CPT-4 11633 May 11, 2015 COMPREHEN METABOLIC PANEL CPT-4 02599 May COMPLETE CBC W/AUTO DIFF WBC CPT-4 28539 May 11, 2015 VENIPUNCT, ROUTINE* CPT-4 81502 May 11, 2015 Results Name Result Date Reference Range Unit Abnormali ty Flag ROUTINE VENIPUNCTURE Summary Purpose [employer] Submission
== END 2019-08-09 16:25 | disposition home or self-care (01) | DRG 195 ==
LOC: EDUNIT# 13:44 → ER 13:46 → 4TH 16:30 → OBSVTOIN 08-06 10:40 → 4TH 08-07 16:13
PROVIDERS: ADMIT Family Medicine; ATTEND Internal Medicine
PROC: 0DB78ZX Excision of Stomach, Pylorus, Via Natural or Artificial Opening Endoscopic, Diagnostic (ICD-10-PCS; 2019-08-07)
PROC: 0D738ZZ Dilation of Lower Esophagus, Via Natural or Artificial Opening Endoscopic (ICD-10-PCS; principal; 2019-08-07 11:00)
DX: J18.9 Pneumonia, unspecified organism (principal); K22.2 Esophageal obstruction; K21.0 Gastro-esophageal reflux disease with esophagitis; K29.70 Gastritis, unspecified, without bleeding; R13.10 Dysphagia, unspecified; N32.89 Other specified disorders of bladder; K44.9 Diaphragmatic hernia without obstruction or gangrene; F17.210 Nicotine dependence, cigarettes, uncomplicated; J44.9 Chronic obstructive pulmonary disease, unspecified; I10 Essential (primary) hypertension; E78.5 Hyperlipidemia, unspecified; F12.90 Cannabis use, unspecified, uncomplicated; Z86.73 Personal history of transient ischemic attack (TIA), and cerebral infarction without residual deficits; Z99.81 Dependence on supplemental oxygen
CPT/HCPCS: 36415; 71046; 71260; 74177; 76705; 80053; 80074; 80306; 80320; 81000; 82150; 83605; 83690; 83880; 84145; 84443; 84484; 85025; 85027; 85610; 85730; 87040; 87449; 87804; 87899; 93005; 94640; 94664; 94760; G0378

== ENCOUNTER 2021-11-24 10:13 | Emergency (ER) | payer MEDICARE ==
[~2021-11-24] VITALS: Ht 167 cm; Wt 66.0 kg
[~2021-11-24 10:13] MED LIST changes: +ASPI-1238 PO; +ATOR40TA PO; +CEFD300C3 PO; +METO5TAB2 PO
[2021-11-24 10:43] LABS: BASOPHILS % (AUTO) 1 % (0-10); EOSINOPHILS # (AUTO) 0.1 10^3/uL (0.0-0.3); EOSINOPHILS % (AUTO) 1 % (0-10); HEMATOCRIT 45 % (40-54); HEMOGLOBIN 15.2 g/dL (13.3-17.7); LYMPHOCYTES # (AUTO) 1.4 10^3/uL (1.0-4.0); LYMPHOCYTES % (AUTO) 27 % (12-44); MEAN CORPUSCULAR HEMOGLOBIN 28 pg (25-34); MEAN CORPUSCULAR HGB CONC 34 g/dL (32-36); MEAN CORPUSCULAR VOLUME 84 fL (80-99); MEAN PLATELET VOLUME 10.3 fL (9.0-12.2); MONOCYTES # (AUTO) 0.3 10^3/uL (0.0-1.0); MONOCYTES % (AUTO) 6 % (0-12); NEUTROPHILS # (AUTO) 3.4 10^3/uL (1.8-7.8); NEUTROPHILS % (AUTO) 66 % (42-75); PLATELET COUNT 182 10^3/uL (130-400); WHITE BLOOD COUNT 5.1 10^3/uL (4.3-11.0)
--- NOTE | 2021-11-24 10:50 | ED Neurological Problem ---
General Chief Complaint: Neurological Problems Stated Complaint: POSSIBLE STROKE Source: patient, family (FERMIN MENDOZA MD) History of Present Illness Date Seen by Provider: Nov 24, 2021 Time Seen by Provider: 10:30 Initial Comments 71-year-old male brought in by EMS for possible stroke. Patient son saw him this morning noted a right-sided facial drooping. States that the last time he was well was last night when he went to bed. Per patient's he was mowing the grass and weed eating yesterday and he seemed just fine. When she woke up this morning at about 715 she noted he was acting funny. He is sitting. She recommended he get up and go to the bathroom and needed. At that point she is seemed a little off. Patient was unaware of any symptoms until his step-son saw him. [place] states he noted that he was drooling. Patient is only on aspirin atorvastatin and Protonix. Patient does follow with Dr. Ayers at [facility]. states he used to be on blood pressure meds but his blood pressure is better so he is not been on it for a while. Has a history of previous CVA. Blood sugar done by EMS was 96. Patient was brought in and immediately taken to CT for head CT. EKG did not show atrial fibrillation. Patient has no medications for HTN. (FERMIN MENDOZA MD) Allergies and Home Medications Allergies Coded Allergies: No Known Drug Allergies (Unverified , 07/23/13) Patient Home Medication List Home Medication List Reviewed: Yes (FERMIN MENDOZA MD) Home Medication List Reviewed: Yes (CB MARES) Aspirin (Aspirin EC) 81 Mg Tablet., 81 MG PO DAILY, (Reported) Entered as Reported by: SCAR EWING on 08/06/19 1144 Atorvastatin Calcium (Lipitor) 40 Mg Tablet, 40 MG PO HS Prescribed by: EFRAIN KUO on 08/09/19 1344 Cefdinir (Cefdinir) 300 Mg Capsule, 300 MG PO BID Prescribed by: EFRAIN KUO on 08/09/19 134 Metoclopramide HCl (Metoclopramide HCl) 5 Mg Tablet, 5 MG PO TID PRN for NAUSEA/VOMITING-3RD LINE, (Reported) Entered as Reported by: SCAR EWING on 08/06/19 1144 Review of Systems Review of Systems Constitutional: No chills, No diaphoresis Eyes: Denies Blindness, Denies Blurred Vision Ears, Nose, Mouth, Throat: denies ear pain, denies ear discharge Respiratory: No cough, No short of breath Cardiovascular: No chest pain, No edema Gastrointestinal: No abdominal pain, No nausea, No vomiting Genitourinary: No discharge, No dysuria Musculoskeletal: No back pain, No joint pain (CB MARES) All Other Systems Reviewed Negative Unless Noted: Yes (CB MARES) Past Zpgoueb-Eagruv-Xsztov Hx Patient Social History Tobacco Use?: Yes Use of E-Cig and/or Vaping dev: No (CB MARES) Immunizations Up To Date Tetanus Booster (TDap): Unknown (FERMIN MENDOZA MD) Past Medical History Surgeries: Yes Orthopedic Respiratory: Yes COPD Cardiac: No Neurological: Yes Stroke Reproductive Disorders: No Sexually Transmitted Disease: No HIV/AIDS: No Genitourinary: No Gastrointestinal: No Musculoskeletal: No Endocrine: No HEENT: No Cancer: No Psychosocial: No Integumentary: No Eczema Blood Disorders: No Adverse Reaction/Blood Tranf: No (FERMIN MENDOZA MD) Family Medical History Stroke 03 MOTHER Physical Exam Vital Signs Vital Signs - First Documented 11/24/21 10:24 Temp 36.6 Pulse 60 Resp 14 B/P (MAP) 133/87 (102) Pulse Ox 98 O2 Delivery Room Air (CB MARES) Vital Signs Capillary Refill : (FERMIN MENDOZA MD) Height, Weight, BMI Height: 5'10.00" Weight: 155lbs. 1.0oz. [id number]; 23.50 BMI Method:Stated General Appearance: mild distress, cachetic HEENT: normal ENT inspection Neck: non-tender, supple Respiratory: No decreased breath sounds, No accessory muscle use; other (course breath sounds bilaterally. ) Cardiovascular: regular rate, rhythm, no murmur Gastrointestinal: normal bowel sounds, non tender, soft Neurologic/Psychiatric: alert, oriented x 3, aphasia, facial droop Coordination/Gait: normal finger to nose Motor/Sensory: weak motor strength RUE, weak motor strength RLE Skin: normal color, warm/dry Lymphatic: no adenopathy (FERMIN MENDOZA MD) Stroke Onset of Symptoms Date of Onset of Symptoms: Nov 24, 2021 Symptoms onset unknown: Yes (FERMIN MENDOZA MD) NIH Stroke Scale Assessment Select: Initial Level of Consciousness: 0=Alert (0), Level of Consciousness- Questions: 0=Answers both month/age (0), LOC Commands: 0=Performs both tasks (0), Gaze: Normal (0), Visual Blakely: 0=No visual loss (0), Facial Movement (Facial Paresis): 1=Minor paralysis (1), Motor Function-Arms Right: 1=Drift (1), Motor Function-Arms Left: 0=No drift (0), Motor Function-Legs Right: 0=No drift (0), Motor Function-Legs Left: 0=No drift (0), Limb Ataxia: 0=Absent (0), Sensory: 0=Normal:no loss (0), Best Language: 1=Mild to moderat aphasia (1), Dysarthria: 1=Mild to moderate loss (1), Extinction & Inattention: 0=No abnormality (0), Total: 4 Stroke Thrombolytic Exclusion Age 18 or Over: Yes History of CVA: Yes (FERMIN MENDOZA MD) Progress/Results/Core Measures Results/Orders Lab Results Laboratory Tests Test 11/24/21 10:36 11/24/21 10:47 11/24/21 12:06 Range/Units White Blood Count 5.1 4.3-11.0 10^3/uL Red Blood Count 5.44 4.30-5.52 10^6/uL Hemoglobin 15.2 13.3-17.7 g/dL Hematocrit 45 40-54 % Mean Corpuscular Volume 84 80-99 fL Mean Corpuscular Hemoglobin 28 25-34 pg Mean Corpuscular Hemoglobin Concent 34 32-36 g/dL Red Cell Distribution Width 15.4 H 10.0-14.5 % Platelet Count 182 130-400 10^3/uL Mean Platelet Volume 10.3 9.0-12.2 fL Immature Granulocyte % (Auto) 0 % Neutrophils (%) (Auto) 66 42-75 % Lymphocytes (%) (Auto) 27 12-44 % Monocytes (%) (Auto) 6 0-12 % Eosinophils (%) (Auto) 1 0-10 % Basophils (%) (Auto) 1 0-10 % Neutrophils # (Auto) 3.4 1.8-7.8 10^3/uL Lymphocytes # (Auto) 1.4 1.0-4.0 10^3/uL Monocytes # (Auto) 0.3 0.0-1.0 10^3/uL Eosinophils # (Auto) 0.1 0.0-0.3 10^3/uL Basophils # (Auto) 0.0 0.0-0.1 10^3/uL Immature Granulocyte # (Auto) 0.0 0.0-0.1 10^3/uL Prothrombin Time 13.4 12.2-14.7 SEC INR Comment 1.0 0.8-1.4 Activated Partial Thromboplast Time 29 24-35 SEC D-Dimer 0.63 H 0.00-0.49 UG/ML Sodium Level 136 135-145 MMOL/L Potassium Level 4.4 3.6-5.0 MMOL/L Chloride Level 101 98-107 MMOL/L Carbon Dioxide Level 25 21-32 MMOL/L Anion Gap 10 5-14 MMOL/L Blood Urea Nitrogen 14 7-18 MG/DL Creatinine 1.38 H 0.60-1.30 MG/DL Estimat Glomerular Filtration Rate 54 BUN/Creatinine Ratio 10 Glucose Level 95 70-105 MG/DL Calcium Level 9.5 8.5-10.1 MG/DL Corrected Calcium 9.3 8.5-10.1 MG/DL Total Bilirubin 0.5 0.1-1.0 MG/DL Aspartate Amino Transf (AST/SGOT) 19 5-34 U/L Alanine Aminotransferase (ALT/SGPT) 10 0-55 U/L Alkaline Phosphatase 56 40-136 U/L Troponin I < 0.028 <0.028 NG/ML Total Protein 7.8 6.4-8.2 GM/DL Albumin 4.2 3.2-4.5 GM/DL Glucometer 92 70-110 MG/DL Urine Color YELLOW Urine Clarity CLEAR Urine pH 6.0 5-9 Urine Specific [place] 1.010 L 1.016-1.022 Urine Protein NEGATIVE NEGATIVE Urine Glucose (UA) NEGATIVE NEGATIVE Urine Ketones NEGATIVE NEGATIVE Urine Nitrite NEGATIVE NEGATIVE Urine Bilirubin NEGATIVE NEGATIVE Urine Urobilinogen 0.2 < = 1.0 MG/DL Urine Leukocyte Esterase NEGATIVE NEGATIVE Urine RBC (Auto) NEGATIVE NEGATIVE Urine RBC NONE /HPF Urine WBC NONE /HPF Urine Squamous Epithelial Cells 0-2 /HPF Urine Crystals NONE /LPF Urine Bacteria NEGATIVE /HPF Urine Casts NONE /LPF Urine Mucus NEGATIVE /LPF Urine Culture Indicated NO (CB MARES) My Orders Orders - CB MARES Cbc With Automated Diff (11/24/21 10:28) Protime With Inr (11/24/21 10:28) Partial Thromboplastin Time (11/24/21 10:28) Comprehensive Metabolic Panel (11/24/21 10:28) Fibrin Degradation Products (11/24/21 10:28) Troponin I [place] (11/24/21 10:28) Ua Culture If Indicated (11/24/21 10:28) Chest 1 View, Ap/Pa Only (11/24/21 10:28) Ekg Tracing (11/24/21 10:28) Nothing By Mouth (11/24/21 Lunch) Accucheck Stat ONCE (11/24/21 10:28) Ed Iv/Invasive Line Start (11/24/21 10:28) Ed Iv/Invasive Line Start (11/24/21 10:28) Vital Signs Stroke Patient Q15M (11/24/21 10:28) Ct Head Wo-R/O Stroke (11/24/21 10:28) O2 (11/24/21 10:28) Intake & Output 06,14,22 (11/24/21 10:28) Monitor-Rhythm Ecg Trace Only (11/24/21 10:28) Dysphagia Screening Tool Q10MX1 (11/24/21 10:28) Post Thrombolytic Adminstratio (11/24/21 10:28) Lipid Panel (11/25/21 06:00) Iohexol Injection (Omnipaque 350 Mg/Ml 1 (11/24/21 11:15) Received Contrast (Hold Metformin- Contr (11/24/21 11:15) Sodium Chloride Flush (Catheter Flush Sy (11/24/21 11:15) Ns (Ivpb) (Sodium Chloride 0.9% Ivpb Bag (11/24/21 11:15) (CB MARES) Medications Given in ED Current Medications Medications Dose Ordered Sig/Deon Route Start Time Stop Time Status Last Admin Dose Admin Iohexol 100 ml ONCE ONCE IV 11/24/21 11:15 11/24/21 11:16 DC 11/24/21 11:25 75 ML Sodium Chloride 10 ml NEEDED PRN IV 11/24/21 11:15 11/24/21 17:43 DC 11/24/21 11:25 10 ML Sodium Chloride 100 ml ONCE ONCE IV 11/24/21 11:15 11/24/21 11:16 DC 11/24/21 11:25 100 ML (CB MARES) Vital Signs/I&O 11/24/21 10:24 Temp 36.6 Pulse 60 Resp 14 B/P (MAP) 133/87 (102) Pulse Ox 98 O2 Delivery Room Air (CB MARES) FSBG Bedside Testing Finger Stick Blood Glucose: 92 (FERMIN MENDOZA MD) Progress Progress Note : Time: 10:56 Progress Note [facility] called at 1045. spoke with Dr. Arcos at 1057. recommended CTA head and neck. recommended against TPA due to outside of window. (FERMIN MENDOZA MD) Progress Note : Time: 12:44 Progress Note Assumed care of the patient at noon. Stable NIH of 4 points on reexamination. We discussed with his stepson who is well versed in his care as well as his and they would prefer the patient go to [facility] since it is closer to them so they can monitor him and his primary care doctor is there. The patient is in agreement with this plan. We have called and left a message with [facility] to call us back to work on a transfer. We did inform him of the potential liability for transportation and they are okay with this. (CB MARES) Initial ECG Impression Date: Nov 24, 2021 Initial ECG Impression Time: 11:02 Initial ECG Rate: 59 Initial ECG Rhythm: Normal Sinus Initial ECG Intervals: Normal Initial ECG Impression: Sinus Bradycardia Comment no ST changes. Right bundle branch block. (FERMIN MENDOZA MD) Diagnostic Imaging Diagonstic Imaging: CT Plain Films/CT/US/NM/MRI: head Comments [facility] [place] [place] NAME: DARA HAGER [facility] REC#: [id number] PT STATUS: REG ER : 1950 PHYSICIAN: CB MARES MD ADMIT DATE: 11/24/21/ER Draft Date of Exam:11/24/21 CT HEAD WO-R/O STROKE CLINICAL INDICATION: Stroke like symptoms. EXAM: Axial CT scan of the brain performed without IV contrast. High-resolution axial CT brain images with sagittal and coronal reformations were also created. Auto Exposure Controls were utilized during the CT exam to meet ALARA standards for radiation dose reduction. COMPARISON: CT scan of the brain without contrast dated 08/27/2013. FINDINGS: There is no interval CT evidence of acute cerebral infarct, intracranial hemorrhage, brain herniation or midline shift. There is interval development of a small chronic infarct involving the right parietal lobe and right occipital lobe. There is interval development of a minimal sized chronic infarct involving the high parasagittal right frontal lobe region. Stable small chronic infarct involving the bilateral basal ganglia regions with the left side more than right. There is associated infarct extending to the bilateral frontal lobe periventricular regions. There is patchy confluent low-density throughout the white matter both cerebral hemispheres again noted. There is no brain herniation or midline shift. There is no hydrocephalus. Basal cisterns are unremarkable. Extra cranial soft tissue, skull, and orbits are unremarkable. Poor dentition is seen with multiple dental caries and periapical erosions involving the visualized maxillary teeth. IMPRESSION: 1: There is no dense vessel sign seen. There is no definite CT evidence of interval acute cerebral infarction, intracranial hemorrhage, or mass seen. The diffuse low attenuation changes and chronic infarcts throughout the brain parenchyma may possibly obscure more subtle findings. If there is clinical concern for acute cerebral infarction, MRI of the brain would better evaluate. 2: There is interval development of small chronic infarcts involving the right parietal lobe, right occipital lobe, and high parasagittal right frontal region. 3: Again seen chronic infarcts involving the bilateral basal ganglia regions and bilateral frontal lobe regions. 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 Results of this report discussed with Dr. Cb Mares via the telephone on 11/24/2021 at 1055 hours. Dictated on workstation # [id number] Dict: 11/24/21 1043 Trans: 11/24/21 1102 [id number] Interpreted by: NILS REBOLLAR MD Electronically signed by: Reviewed: Reviewed by Me Diagonstic Imaging: CT Plain Films/CT/US/NM/MRI: head, other Comments [facility] [place] [place] NAME: DARA HAGER [facility] REC#: [id number] PT STATUS: REG ER : 1950 PHYSICIAN: FERMIN MENDOZA MD ADMIT DATE: 11/24/21/ER Draft Date of Exam:11/24/21 CT ANGIO HEAD/NECK PROCEDURE: CT angiography of the head and CT angiography of the neck with and without contrast. TECHNIQUE: Contiguous noncontrast images were obtained from the skull base through the vertex. After intravenous contrast administration, helical CT angiography of the neck was performed. Source data was reformatted into 3D MIP projections. Delayed post contrast acquisition was also obtained. Auto Exposure Controls were utilized during the CT exam to meet ALARA standards for radiation dose reduction. INDICATION: Right-sided deficits. Concern for stroke. COMPARISON: CT head performed earlier the same date. CT chest on 08/06/2019. FINDINGS: CTA Neck: The visualized portions of the aortic arch demonstrate no evidence of aneurysm or dissection. There is conventional branching pattern of the great vessels of the aorta. The brachiocephalic artery is normal in course and caliber. The right and left common carotid origins are unremarkable. The origin of the left subclavian artery is patent. The common carotid arteries and internal carotid arteries demonstrate a mildly tortuous course. There is calcified atherosclerotic plaque in the bilateral carotid bulbs and proximal internal carotid arteries without flow-limiting stenosis. No evidence of dissection in the carotid systems. The external carotid arteries are patent and unremarkable. The vertebral arteries are codominant. The origin of the right vertebral artery is seen and is unremarkable. The origin of the left vertebral artery is seen and is unremarkable. There is no focal stenosis seen within the neck. There is no dissection. The vertebral arteries are well visualized to up to the level of the basilar artery. The osseous structures of the cervical spine are unremarkable. Centrilobular emphysema and scarring is seen in the lung apices. CTA brain: Atherosclerotic plaque is seen in the handy of the bilateral terminal internal carotid arteries without significant stenosis. No stenosis is seen in the bilateral anterior, middle, and posterior cerebral arteries. No evidence of aneurysm the [place]. In the posterior circulation, both of the vertebral arteries demonstrate normal opacification. Both the right and left PICA arteries are identified. The basilar artery is normal in course and caliber. The terminal branch vessels including the superior cerebellar arteries unremarkable. IMPRESSION: 1. No stenosis or aneurysm in the [place]. No evidence of large vessel occlusion. 2. No stenosis or dissection the bilateral carotid and vertebral arteries. 3. Scarring and centrilobular emphysema in the lung apices. Dictated on workstation # [id number] Dict: 11/24/21 1138 Trans: 11/24/21 1153 [id number] [id number] Interpreted by: CAREN HANNA DO Electronically signed by: Reviewed: Reviewed by Ca Diagonstic Imaging: Xray Plain Films/CT/US/NM/MRI: chest Comments [facility] [place] NAME: DARA HAGER [facility] REC#: [id number] PT STATUS: REG ER : 1950 PHYSICIAN: CB MARES MD ADMIT DATE: 11/24/21/ER Signed Date of Exam:11/24/21 CHEST 1 VIEW, AP/PA ONLY EXAMINATION: Chest 1 view HISTORY: right weakness and facial droop COMPARISON: 08/09/2019 FINDINGS: Heart size and pulmonary vasculature are normal. The lungs are clear without consolidation, pleural effusion, or pneumothorax. The osseous structures are intact. IMPRESSION: 1. No acute radiographic abnormality in the chest. Dictated by: Dictated on workstation # [id number] Dict: 11/24/21 1141 Trans: 11/24/21 1142 [id number] [id number] Interpreted by: KELLY FARIAS DO Electronically signed by: KELLY FARIAS DO 11/24/21 1142 Reviewed: Reviewed by Ca Diagonstic Imaging: MRI Plain Films/CT/US/NM/MRI: head Comments [facility] [place] NAME: DARA HAGER [facility] REC#: [id number] PT STATUS: ADM Gavin : 1950 PHYSICIAN: CB MARES MD ADMIT DATE: 11/24/21/4TH Signed Date of Exam:11/24/21 MRI BRAIN W/O CONTRAST PROCEDURE: MR imaging of the brain without contrast. TECHNIQUE: Multiplanar, multisequence MR imaging of the brain was performed without contrast. INDICATION: Right-sided focal neurologic deficits. Concern for acute ischemia. COMPARISON: CTA head and neck performed earlier the same date. MRI brain on 07/23/2013. FINDINGS: A small amount of acute/subacute ischemia is visualized in the left patel radiata. This is directly adjacent to a site of prior infarct. No associated hemorrhage or mass effect. Chronic infarct is also seen in the right parietal region. Additional chronic microvascular disease is seen in the periventricular and subcortical white matter. The ventricles and cortical sulci are prominent. The basilar cisterns are symmetric and unremarkable. The sellar and suprasellar regions have a normal appearance. The paranasal sinuses and mastoid air cells demonstrate normal signal characteristics. The globes and orbits are symmetric and unremarkable. The scalp and calvarium have a normal appearance. IMPRESSION: 1. Small area of acute/subacute ischemia involving the left patel radiata. No associated hemorrhage or mass effect. 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 2. 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 3. Generalized parenchymal volume loss. Dictated by: Dictated on workstation # [id number] Dict: 11/24/21 1459 Trans: 11/24/21 1516 [id number] [id number] Interpreted by: CAREN HANNA DO Electronically signed by: CAERN HANNA DO 11/24/21 1516 Reviewed: Reviewed by Me (CB MARES) Consults : Consulting Physician: A (FERMIN MENDOZA MD) CVA/SNYCOPE: ECG, Tpa Considered (FERMIN MENDOZA MD) Departure Impression Primary Impression: CVA (cerebral vascular accident) Qualified Codes: I63.9 - Cerebral infarction, unspecified Additional Impression: TIA (transient ischemic attack) Disposition: XFER SHT-TRM HOSP Condition: Stable Transfer Transfer Reason: Patient preference Time Spoke to Accepting Phy: 13:20 Transfer Progress Notes 1240: Left voicemail with Ilsa [facility] [place] transfer team. 1247: Triage called back and will page a on-call noodle maker. 1310: Spoke to neurologyShelia and she will call us back after she discusses with Dr. Nathan. She thinks there should be no problem with excepting him. 1317: Shelia from neurology says they are okay to consult as long as internal medicine will accept. 1320: Paged Dr. Cherry IM. 1335: Dr. Sow: the patient has been accepted to [facility] however they do not have a bed available just yet. Anticipate having 1 soon and will call us. Transfer Facility: [facility] JENNIFER Rosenbaum Method of Transfer: EMS (CB MARES) Departure-Patient Inst. Referrals: [facility]/K (PCP/Family) Primary Care Physician FERMIN MENDOZA MD Nov 24, 2021 10:50 CB MARES Nov 24, 2021 12:09
[2021-11-24 10:56] LABS: ALBUMIN 4.2 GM/DL (3.2-4.5)
[2021-11-24 10:57] LABS: CHLORIDE 101 MMOL/L (98-107); POTASSIUM 4.4 MMOL/L (3.6-5.0); SODIUM 136 MMOL/L (135-145)
[2021-11-24 10:58] LABS: CALCIUM 9.5 MG/DL (8.5-10.1)
[2021-11-24 10:59] LABS: GLUCOSE 95 MG/DL (70-105); TOTAL PROTEIN 7.8 GM/DL (6.4-8.2)
[2021-11-24 11:00] LABS: CARBON DIOXIDE 25 MMOL/L (21-32); FIBRIN DEGRADATION PRODUCTS 0.63 UG/ML (0.00-0.49); PROTHROMBIN TIME PATIENT 13.4 SEC (12.2-14.7)
[2021-11-24 11:01] LABS: BILIRUBIN,TOTAL 0.5 MG/DL (0.1-1.0)
[2021-11-24 11:02] LABS: ALKALINE PHOSPHATASE 56 U/L (40-136)
--- NOTE | 2021-11-24 11:02 | Diagnostic Imaging Report ---
CLINICAL INDICATION: Stroke like symptoms. EXAM: Axial CT scan of the brain performed without IV contrast. High-resolution axial CT brain images with sagittal and coronal reformations were also created. Auto Exposure Controls were utilized during the CT exam to meet ALARA standards for radiation dose reduction. COMPARISON: CT scan of the brain without contrast dated 08/27/2013. FINDINGS: There is no interval CT evidence of acute cerebral infarct, intracranial hemorrhage, brain herniation or midline shift. There is interval development of a small chronic infarct involving the right parietal lobe and right occipital lobe. There is interval development of a minimal sized chronic infarct involving the high parasagittal right frontal lobe region. Stable small chronic infarct involving the bilateral basal ganglia regions with the left side more than right. There is associated infarct extending to the bilateral frontal lobe periventricular regions. There is patchy confluent low-density throughout the white matter both cerebral hemispheres again noted. There is no brain herniation or midline shift. There is no hydrocephalus. Basal cisterns are unremarkable. Extra cranial soft tissue, skull, and orbits are unremarkable. Poor dentition is seen with multiple dental caries and periapical erosions involving the visualized maxillary teeth. IMPRESSION: 1: There is no dense vessel sign seen. There is no definite CT evidence of interval acute cerebral infarction, intracranial hemorrhage, or mass seen. The diffuse low attenuation changes and chronic infarcts throughout the brain parenchyma may possibly obscure more subtle findings. If there is clinical concern for acute cerebral infarction, MRI of the brain would better evaluate. 2: There is interval development of small chronic infarcts involving the right parietal lobe, right occipital lobe, and high parasagittal right frontal region. 3: Again seen chronic infarcts involving the bilateral basal ganglia regions and bilateral frontal lobe regions. 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 Results of this report discussed with Dr. Cb Mares via the telephone on 11/24/2021 at 1055 hours. Dictated by: Dictated on workstation # [id number]
[2021-11-24 11:03] LABS: CREATININE SERUM 1.38 MG/DL (0.60-1.30); GFR ESTIMATED 54
[2021-11-24 11:04] LABS: BUN/CREATININE RATIO 10
[2021-11-24 11:06] LABS: ALANINE AMINOTRANSFERASE 10 U/L (0-55)
[2021-11-24] MEDS ORDERED: NS 100 ML (IVPB) BAG IV ONE (11:15)
[2021-11-24] MEDS ORDERED: IOHEXOL 350 MG/ML 100 ML (OMNIPAQUE 350) VIAL IV ONE (11:15)
[2021-11-24] MEDS ORDERED: CATHETER FLUSH 10 ML SYR IV PRN (11:15)
[2021-11-24] MEDS ORDERED: HOLD METFORMIN - RECEIVED CONTRAST 20 ML VIAL IV SCH (11:15)
--- NOTE | 2021-11-24 11:42 | Diagnostic Imaging Report ---
EXAMINATION: Chest 1 view HISTORY: right weakness and facial droop COMPARISON: 08/09/2019 FINDINGS: Heart size and pulmonary vasculature are normal. The lungs are clear without consolidation, pleural effusion, or pneumothorax. The osseous structures are intact. IMPRESSION: 1. No acute radiographic abnormality in the chest. Dictated by: Dictated on workstation # [id number]
--- NOTE | 2021-11-24 11:54 | Diagnostic Imaging Report ---
PROCEDURE: CT angiography of the head and CT angiography of the neck with and without contrast. TECHNIQUE: Contiguous noncontrast images were obtained from the skull base through the vertex. After intravenous contrast administration, helical CT angiography of the neck was performed. Source data was reformatted into 3D MIP projections. Delayed post contrast acquisition was also obtained. Auto Exposure Controls were utilized during the CT exam to meet ALARA standards for radiation dose reduction. INDICATION: Right-sided deficits. Concern for stroke. COMPARISON: CT head performed earlier the same date. CT chest on 08/06/2019. FINDINGS: CTA Neck: The visualized portions of the aortic arch demonstrate no evidence of aneurysm or dissection. There is conventional branching pattern of the great vessels of the aorta. The brachiocephalic artery is normal in course and caliber. The right and left common carotid origins are unremarkable. The origin of the left subclavian artery is patent. The common carotid arteries and internal carotid arteries demonstrate a mildly tortuous course. There is calcified atherosclerotic plaque in the bilateral carotid bulbs and proximal internal carotid arteries without flow-limiting stenosis. No evidence of dissection in the carotid systems. The external carotid arteries are patent and unremarkable. The vertebral arteries are codominant. The origin of the right vertebral artery is seen and is unremarkable. The origin of the left vertebral artery is seen and is unremarkable. There is no focal stenosis seen within the neck. There is no dissection. The vertebral arteries are well visualized to up to the level of the basilar artery. The osseous structures of the cervical spine are unremarkable. Centrilobular emphysema and scarring is seen in the lung apices. CTA brain: Atherosclerotic plaque is seen in the handy of the bilateral terminal internal carotid arteries without significant stenosis. No stenosis is seen in the bilateral anterior, middle, and posterior cerebral arteries. No evidence of aneurysm the [place]. In the posterior circulation, both of the vertebral arteries demonstrate normal opacification. Both the right and left PICA arteries are identified. The basilar artery is normal in course and caliber. The terminal branch vessels including the superior cerebellar arteries unremarkable. IMPRESSION: 1. No stenosis or aneurysm in the [place]. No evidence of large vessel occlusion. 2. No stenosis or dissection the bilateral carotid and vertebral arteries. 3. Scarring and centrilobular emphysema in the lung apices. Dictated by: Dictated on workstation # [id number]
[2021-11-24 12:26] LABS: BILIRUBIN,URINE NEGATIVE (NEGATIVE); CLARITY,URINE CLEAR; COLOR,URINE YELLOW; GLUCOSE, URINE (UA) NEGATIVE (NEGATIVE); KETONES,URINE NEGATIVE (NEGATIVE); LEUKOCYTE ESTERASE ,URINE NEGATIVE (NEGATIVE); NITRITE,URINE NEGATIVE (NEGATIVE); PROTEIN,URINE NEGATIVE (NEGATIVE)
[2021-11-24 12:42] LABS: BACTERIA,URINE NEGATIVE /HPF; SQUAMOUS EPITHELIAL CELL,UR 0-2 /HPF
[2021-11-24] MEDS ORDERED: LORazepam 0.5 MG (ATIVAN) TABLET PO ONE (13:45)
--- NOTE | 2021-11-24 15:08 | Diagnostic Imaging Report ---
PROCEDURE: MR imaging of the brain without contrast. TECHNIQUE: Multiplanar, multisequence MR imaging of the brain was performed without contrast. INDICATION: Right-sided focal neurologic deficits. Concern for acute ischemia. COMPARISON: CTA head and neck performed earlier the same date. MRI brain on 07/23/2013. FINDINGS: A small amount of acute/subacute ischemia is visualized in the left patel radiata. This is directly adjacent to a site of prior infarct. No associated hemorrhage or mass effect. Chronic infarct is also seen in the right parietal region. Additional chronic microvascular disease is seen in the periventricular and subcortical white matter. The ventricles and cortical sulci are prominent. The basilar cisterns are symmetric and unremarkable. The sellar and suprasellar regions have a normal appearance. The paranasal sinuses and mastoid air cells demonstrate normal signal characteristics. The globes and orbits are symmetric and unremarkable. The scalp and calvarium have a normal appearance. IMPRESSION: 1. Small area of acute/subacute ischemia involving the left patel radiata. No associated hemorrhage or mass effect. 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 2. 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 3. Generalized parenchymal volume loss. Dictated by: Dictated on workstation # [id number]
[2021-11-24 15:56] VITALS: BP 154/103
== END 2021-11-24 15:56 | disposition other institution (70) ==
LOC: EDUNIT# 10:13 → ER 10:15 → 4TH 12:10 → UNDOADMOB 12:10
DX: I63.9 Cerebral infarction, unspecified (principal); G45.9 Transient cerebral ischemic attack, unspecified; R29.704 NIHSS score 4; I45.10 Unspecified right bundle-branch block
CPT/HCPCS: 36415; 70450; 70496; 70498; 70551; 71045; 80053; 81000; 82947; 84484; 85025; 85379; 85610; 85730; 93005; 93041; 99291

== ENCOUNTER 2022-02-28 14:45 | Outpatient (RCR) | payer OTHER | END 2022-03-02 | disposition home or self-care (01) | PROVIDERS: ATTEND Hospitalist | DX: I69.351 Hemiplegia and hemiparesis following cerebral infarction affecting right dominant side (principal) ==

== ENCOUNTER 2022-02-28 14:45 | Outpatient (RCR) | payer MEDICARE, OTHER | END 2022-03-02 | disposition home or self-care (01) | PROVIDERS: ATTEND Hospitalist | DX: I69.351 Hemiplegia and hemiparesis following cerebral infarction affecting right dominant side (principal) ==

== ENCOUNTER 2022-03-14 14:48 | Outpatient (RCR) | payer OTHER | END 2022-03-14 16:20 | disposition home or self-care (01) | PROVIDERS: ATTEND Hospitalist | DX: I69.351 Hemiplegia and hemiparesis following cerebral infarction affecting right dominant side (principal) ==

== ENCOUNTER 2022-03-14 14:49 | Outpatient (RCR) | payer OTHER | END 2022-03-15 13:11 | disposition home or self-care (01) | PROVIDERS: ATTEND Hospitalist | DX: I69.351 Hemiplegia and hemiparesis following cerebral infarction affecting right dominant side (principal) ==